=== PATIENT | female | born 1960 | race Caucasian/White ===

== ENCOUNTER 2018-11-06 11:43 | Emergency (ER) | payer OTHER ==
[2018-11-06 14:17] LABS: Absolute Lymphocytes (CBC) 1.5 K/uL (0.7-4.9); Basophils % 0.9 % (0-1.3); Hematocrit 41.4 % (36.0-45.0); Lymphocytes % 15.4 % (15.3-44.8); MPV 7.3 fL (7.6-11.3); RBC Red Blood Cell Count 4.55 M/uL (3.86-4.86)
[2018-11-06] MEDS ORDERED: NA CHLORIDE 0.9% 500 ML ONE (14:29)
[2018-11-06] MEDS ORDERED: ONDANSETRON 4 MG/2 ML VIAL ONE (14:29)
[2018-11-06] MEDS ORDERED: MEPERIDINE HCL 25 MG/0.5 ML ONE (14:29)
[2018-11-06 14:44] LABS: ALT/SGPT 15 U/L (12-78); AST/SGOT 15 U/L (15-37); Albumin 3.6 g/dL (3.4-5.0); Alkaline Phosphatase 87 U/L (45-117); BUN Blood Urea Nitrogen 14 mg/dL (7-18); Bicarbonate 27 mmol/L (21-32); Bilirubin Direct 0.1 mg/dL (0-0.2); Bilirubin Total 0.6 mg/dL (0.2-1.0); Glucose Level 119 mg/dL (74-106); Lipase 73 U/L (73-393); Potassium 4.3 mmol/L (3.5-5.1); Protein, Total 7.3 g/dL (6.4-8.2); Sodium Level 138 mmol/L (136-145)
[2018-11-06] MEDS ORDERED: DIPHENHYDRAMINE 50 MG/ML VIAL ONE (15:13)
--- NOTE | 2018-11-06 15:42 | RAD REPORT ---
EXAM DESCRIPTION: CT - Abdomen Pelvis W Contrast - 11/06/2018 3:08 pm CLINICAL HISTORY: Abdominal pain . COMPARISON: 2012 TECHNIQUE: Computed axial tomography of the abdomen pelvis was obtained. 100 cc Isovue-300 was admin istered intravenously. Oral contrast was not requested which limits evaluation of bowel. All CT scans are performed using dose optimization technique as appropriate and may include automated exposure control or mA/KV adjustment according to patient size. FINDINGS: The liver, spleen, pancreas, adrenal and kidneys appear unremarkable. Prominent periuterine veins 7 centimeter area of wall thickening involves the sigmoid colon 26 millimeter right adnexal cystic mass Large amount stool within the colon IMPRESSION: 7 centimeter area of wall thickening involves sigmoid colon which may indicate colitis o r neoplasm. Direct visualization recommended 26 millimeter right adnexal cystic mass probably benign. Follow-up ultrasound in 6 months recommended
[2018-11-06 16:41] LABS: Urine Blood NEGATIVE (NEG); Urine Glucose NEGATIVE (NEG); Urine Specific Gravity 1.025 (1.005-1.030)
[2018-11-06 16:42] LABS: Urine Protein NEGATIVE (NEG); Urine pH 5.5 (5.0-7.0)
[2018-11-06] MEDS ORDERED: FENTANYL CITR 100 MCG/2 ML ONE (16:46)
[2018-11-06] MEDS ORDERED: HYDROMORPHONE HCL 1 MG/ML INJ ONE (19:35)
--- NOTE | 2018-11-06 19:43 | RAD REPORT ---
EXAM DESCRIPTION: US - Transvaginal Study Probe - 11/06/2018 6:29 pm CLINICAL HISTORY: Pelvic pain FINDINGS: The uterus measures 8 x 5 x 8cm. The endometrial stripe is poorly visualized. Evaluation o f the uterus is limited. Neither ovary visualized. Right and left adnexal unremarkable No significant free fluid is seen. IMPRESSION: Limited evaluation of the uterus and endometrium. If clinically indicated further evalua tion with MRI may be helpful
--- NOTE | 2018-11-06 19:44 | RAD REPORT ---
EXAM DESCRIPTION: US - Abdomen Exam Limited - 11/06/2018 6:29 pm CLINICAL HISTORY: Abdominal pain. COMPARISON: None. FINDINGS: The gallbladder wall is not thickened. A gallstone is not seen. The common bile duct measures 7 millimeters IMPRESSION: Mild dilatation of the common bile duct. MRCP may be helpful for further evaluation
--- NOTE | 2018-11-06 19:56 | ER ---
Nurse's Notes [facility] Name: Yumi Kumar Age: 58 yrs Sex: Female : 1960 Arrival Date: 11/06/2018 Time: 11:44 Bed 23 Private MD: Johnathan Kaufman H Diagnosis: Abdominal and pelvic pain;Constipation Presentation: 11/06 11:45 Presenting complaint: Upper abdominal pain and nausea 2 days, lower abdominal pain and hb pain with urination today. Transition of care: patient was not received from another setting of care. Onset of symptoms was November 04, 2018. Risk Assessment: Do you want to hurt yourself or someone else? Patient reports no desire to harm self or others. Initial Sepsis Screen: Does the patient meet any 2 criteria? No. Patient's initial sepsis screen is negative. Initial Sepsis Screen: Does the patient have a suspected source of infection? No. Patient's initial sepsis screen is negative. Care prior to arrival: None. 11:45 Method Of Arrival: Ambulatory hb 11:45 Acuity: JUANITA 3 hb Historical: - Allergies: 11:48 Morphine; hb - PSHx: 11:48 Knee surgery; wrist; ; Tubal ligation; hb - Immunization history:: Adult Immunizations up to date. - Social history:: Smoking status: Patient uses tobacco products, smokes one-half pack cigarettes per day. - Ebola Screening: : No symptoms or risks identified at this time. Screenin:00 Abuse screen: Denies threats or abuse. Denies injuries from another. Nutritional ca1 screening: No deficits noted. Tuberculosis screening: No symptoms or risk factors identified. Fall Risk IV access (20 points). Assessment: 14:00 General: Appears in no apparent distress. uncomfortable, Behavior is calm, cooperative, ca1 appropriate for age. Pain: Complains of pain in abdomen Pain does not radiate. Pain currently is 9 out of 10 on a pain scale. Quality of pain is described as sharp, Pain began 2-3 days ago. Is intermittent. Neuro: Level of Consciousness is awake, alert, obeys commands, Oriented to person, place, time, situation, Appropriate for age. Cardiovascular: Heart tones S1 S2 present Capillary refill < 3 seconds Patient's skin is warm and dry. Rhythm is sinus rhythm. Respiratory: Airway is patent Respiratory effort is even, unlabored, Respiratory pattern is regular, symmetrical, Breath sounds are clear bilaterally. GI: Abdomen is flat, non-distended, Bowel sounds present X 4 quads. Abd is soft and non tender X 4 quads. Reports nausea, Patient currently denies constipation, diarrhea, vomiting. : No deficits noted. No signs and/or symptoms were reported regarding the genitourinary system. EENT: No deficits noted. No signs and/or symptoms were reported regarding the EENT system. Derm: Skin is intact, is healthy with good turgor, Skin is pink, warm \T\ dry. Musculoskeletal: Circulation, motion, and sensation intact. Capillary refill < 3 seconds, Range of motion: intact in all extremities. 14:59 Reassessment: Patient appears in no apparent distress at this time. Patient and/or ca1 family updated on plan of care and expected duration. Pain level reassessed. Patient is alert, oriented x 3, equal unlabored respirations, skin warm/dry/pink. 16:18 Reassessment: Patient appears in no apparent distress at this time. Patient and/or ca1 family updated on plan of care and expected duration. Pain level reassessed. Patient is alert, oriented x 3, equal unlabored respirations, skin warm/dry/pink. 17:32 Reassessment: Patient appears in no apparent distress at this time. Patient is alert, ca1 oriented x 3, equal unlabored respirations, skin warm/dry/pink. 18:54 Reassessment: Patient appears in no apparent distress at this time. Patient and/or ca1 family updated on plan of care and expected duration. Pain level reassessed. Patient is alert, oriented x 3, equal unlabored respirations, skin warm/dry/pink. 19:17 Reassessment: awaiting for ultrasound result. General: Appears in no apparent distress. rr5 comfortable, Behavior is calm, cooperative, appropriate for age. Pain: Complains of pain in abdomen Pain does not radiate. Pain currently is 8 out of 10 on a pain scale. Quality of pain is described as aching, Pain began gradually, Is intermittent. Neuro: Level of Consciousness is awake, alert, obeys commands, Oriented to person, place, time, situation, Appropriate for age. Cardiovascular: Capillary refill < 3 seconds Patient's skin is warm and dry. Respiratory: Airway is patent Respiratory effort is even, unlabored, Respiratory pattern is regular, symmetrical. GI: Abdomen is non-distended, Reports lower abdominal pain, nausea. : No signs and/or symptoms were reported regarding the genitourinary system. EENT: No signs and/or symptoms were reported regarding the EENT system. Derm: Skin is intact, Skin is pink, warm \T\ dry. Musculoskeletal: Circulation, motion, and sensation intact. Capillary refill < 3 seconds. Vital Signs: 11:48 BP 143 / 82; Pulse 94; Resp 16; Temp 99.4; Pulse Ox 100% on R/A; Weight 56.7 kg; Height hb 5 ft. 2 in. (157.48 cm); Pain 9/10; 14:00 BP 138 / 85; Pulse 77; Resp 19; Pulse Ox 97% on R/A; ca1 14:59 BP 117 / 67; Pulse 63; Resp 16 S; Pulse Ox 97% on R/A; ca1 16:18 BP 134 / 68; Pulse 70; Resp 16 S; Pulse Ox 97% on R/A; ca1 17:32 BP 114 / 52; Pulse 56; Resp 16 S; Temp 98.1(O); Pulse Ox 95% on R/A; ca1 18:54 BP 124 / 73; Pulse 51; Resp 17 S; Pulse Ox 95% on R/A; ca1 19:16 BP 118 / 56; Pulse 55; Resp 16; Temp 98; Pulse Ox 99% ; Pain 8/10; rr5 11:48 Body Mass Index 22.86 (56.70 kg, 157.48 cm) hb ED Course: 11:44 Patient arrived in ED. as 11:45 Johnathan Kaufman DO is Private Physician. as 11:48 Triage completed. hb 11:48 Arm band placed on left wrist. hb 13:56 Mariana García, ROSEMARIE is Primary Nurse. ca1 13:56 Lonny Sood MD is Attending Physician. kdr 14:00 Patient has correct armband on for positive identification. Placed in gown. Bed in low ca1 position. Call light in reach. Side rails up X 1. alarm security or surveillance monitor on. Pulse ox on. NIBP on. Warm blanket given. 14:00 No provider procedures requiring assistance completed. Inserted saline lock: 22 gauge ca1 in left forearm, using aseptic technique. Blood collected. Missed attempt(s): 20 gauge in right antecubital area. Bleeding controlled, band aid applied, catheter tip intact. 15:08 CT completed. Patient tolerated procedure well. Patient moved to CT. Patient moved back ct from CT. 15:09 CT Abd/Pelvis - IV Contrast Only In Process Unspecified. EDMS 18:30 US Transvaginal Study (Probe) In Process Unspecified. EDMS 18:30 US Abdomen Limited In Process Unspecified. EDMS 19:54 Johnathan Kaufman DO is Referral Physician. kdr Administered Medications: 14:40 Drug: NS 0.9% 500 ml Route: IV; Rate: bolus; Site: left forearm; ca1 15:15 Follow up: Response: No adverse reaction; IV Status: Completed infusion; IV Intake: ca1 500ml 14:41 Drug: Zofran 4 mg Route: IVP; Site: left forearm; ca1 16:00 Follow up: Response: No adverse reaction; Nausea is decreased ca1 14:45 Drug: Demerol 25 mg Route: IVP; Site: left forearm; ca1 16:20 Follow up: Response: Adverse reaction, Physician notified; Adverse reaction, Physician ca1 notified. Hives/Rash 16:40 Follow up: Response: RASS: Alert and Calm (0) ca1 16:27 Drug: Benadryl 25 mg Route: IVP; Site: left forearm; ca1 16:41 Follow up: Response: No adverse reaction; Marked relief of symptoms ca1 16:52 Drug: fentaNYL (PF) 25 mcg {Note: RASS - 0.} Route: IVP; Site: right forearm; ca1 19:00 Follow up: Response: No adverse reaction; Pain is decreased ca1 19:39 Drug: Dilaudid 1 mg {Note: rass 0.} Route: IVP; Site: left forearm; rr5 Intake: 15:15 IV: 500ml; Total: 500ml. ca1 Outcome: 19:55 Discharge ordered by . kdr 20:26 Patient left the ED. rr5 Signatures: Dispatcher [employer] EDMS Lonny Sood MD MD kdr Martinez, Amelia as Baxter, Heather, RN RN Samir Hoang Raymond, RN RN rr5 Mariana García RN RN ca1 Corrections: (The following items were deleted from the chart) 14:57 14:00 Cardiovascular: Heart tones S1 S2 present Capillary refill < 3 seconds Patient's ca1 skin is warm and dry. ca1
--- NOTE | 2018-11-06 19:56 | EDPHYS ---
Physician Documentation [facility] [place], [place] Name: Yumi Kumar Age: 58 yrs Sex: Female : 1960 Arrival Date: 11/06/2018 Time: 11:44 Bed 23 Private MD: Johnathan Kaufman H ED Physician Lonny Sood HPI: 11/06 14:26 This 58 yrs old Female presents to ER via Ambulatory with complaints of kdr Abdominal Pain. 14:26 The patient presents with abdominal pain in the lower abdomen. Onset: The kdr symptoms/episode began/occurred gradually, 3 day(s) ago. The symptoms do not radiate. Associated signs and symptoms: Pertinent positives: nausea. The symptoms are described as achy, burning, crampy, dull, steady, vague. Modifying factors: The symptoms are alleviated by nothing, the symptoms are aggravated by movement. Severity of pain: At its worst the pain was moderate in the emergency department the pain is unchanged. The patient has not experienced similar symptoms in the past. The patient has not recently seen a physician. Historical: - Allergies: 11:48 Morphine; hb - PSHx: 11:48 Knee surgery; wrist; ; Tubal ligation; hb - Immunization history:: Adult Immunizations up to date. - Social history:: Smoking status: Patient uses tobacco products, smokes one-half pack cigarettes per day. - Ebola Screening: : No symptoms or risks identified at this time. ROS: 19:32 Constitutional: Negative for fever, chills, and weight loss, Eyes: Negative for injury, kdr pain, redness, and discharge, ENT: Negative for injury, pain, and discharge, Neck: Negative for injury, pain, and swelling, Cardiovascular: Negative for chest pain, palpitations, and edema, Respiratory: Negative for shortness of breath, cough, wheezing, and pleuritic chest pain, Back: Negative for injury and pain, : Negative for injury, bleeding, discharge, and swelling, MS/Extremity: Negative for injury and deformity, Skin: Negative for injury, rash, and discoloration, Neuro: Negative for headache, weakness, numbness, tingling, and seizure activity. Psych: Negative for depression, anxiety, suicide ideation, homicidal ideation, and hallucinations, Allergy/Immunology: Negative for hives, rash, and allergies, Endocrine: Negative for neck swelling, polydipsia, polyuria, polyphagia, and marked weight changes, Hematologic/Lymphatic: Negative for swollen nodes, abnormal bleeding, and unusual bruising. 19:32 Abdomen/GI: Positive for abdominal pain, nausea, Negative for diarrhea, constipation, black/tarry stool, rectal pain, rectal bleeding, bowel incontinence, Last BM yesterday. Exam: 19:32 Constitutional: This is a well developed, well nourished patient who is awake, alert, kdr and in no acute distress. Head/Face: Normocephalic, atraumatic. Eyes: Pupils equal round and reactive to light, extra-ocular motions intact. Lids and lashes normal. Conjunctiva and sclera are non-icteric and not injected. Cornea within normal limits. Periorbital areas with no swelling, redness, or edema. Neck: Trachea midline, no thyromegaly or masses palpated, and no cervical lymphadenopathy. Supple, full range of motion without nuchal rigidity, or vertebral point tenderness. No Meningismus. Chest/axilla: Normal chest wall appearance and motion. Nontender with no deformity. No lesions are appreciated. Cardiovascular: Regular rate and rhythm with a normal S1 and S2. No gallops, murmurs, or rubs. Normal PMI, no JVD. No pulse deficits. Respiratory: Lungs have equal breath sounds bilaterally, clear to auscultation and percussion. No rales, rhonchi or wheezes noted. No increased work of breathing, no retractions or nasal flaring. Back: No spinal tenderness. No costovertebral tenderness. Full range of motion. Skin: Warm, dry with normal turgor. Normal color with no rashes, no lesions, and no evidence of cellulitis. MS/ Extremity: Pulses equal, no cyanosis. Neurovascular intact. Full, normal range of motion. Neuro: Awake and alert, GCS 15, oriented to person, place, time, and situation. Cranial nerves II-XII grossly intact. Motor strength 5/5 in all extremities. Sensory grossly intact. Cerebellar exam normal. Normal gait. Psych: Awake, alert, with orientation to person, place and time. Behavior, mood, and affect are within normal limits. 19:32 Abdomen/GI: Inspection: abdomen appears normal, Bowel sounds: diminished, in all quadrants, Palpation: soft, rebound tenderness, is appreciated in the right lower quadrant, The patient is tender in RU/L Q with mild rebound to the RLQ. Vital Signs: 11:48 BP 143 / 82; Pulse 94; Resp 16; Temp 99.4; Pulse Ox 100% on R/A; Weight 56.7 kg; Height hb 5 ft. 2 in. (157.48 cm); Pain 9/10; 14:00 BP 138 / 85; Pulse 77; Resp 19; Pulse Ox 97% on R/A; ca1 14:59 BP 117 / 67; Pulse 63; Resp 16 S; Pulse Ox 97% on R/A; ca1 16:18 BP 134 / 68; Pulse 70; Resp 16 S; Pulse Ox 97% on R/A; ca1 17:32 BP 114 / 52; Pulse 56; Resp 16 S; Temp 98.1(O); Pulse Ox 95% on R/A; ca1 18:54 BP 124 / 73; Pulse 51; Resp 17 S; Pulse Ox 95% on R/A; ca1 19:16 BP 118 / 56; Pulse 55; Resp 16; Temp 98; Pulse Ox 99% ; Pain 8/10; rr5 11:48 Body Mass Index 22.86 (56.70 kg, 157.48 cm) hb MDM: 19:34 Data reviewed: vital signs, nurses notes, lab test result(s), radiologic studies. kdr Counseling: I had a detailed discussion with the patient and/or guardian regarding: the historical points, exam findings, and any diagnostic results supporting the discharge/admit diagnosis, lab results, the need for outpatient follow up. 19:55 Patient medically screened. kdr 11/06 13:57 Order name: Basic Metabolic Panel; Complete Time: 14:49 kdr 11/06 13:57 Order name: CBC with Diff; Complete Time: 14:49 kdr 11/06 13:57 Order name: Creatinine for Radiology; Complete Time: 14:49 kdr 11/06 13:57 Order name: Hepatic Function; Complete Time: 14:49 kdr 11/06 13:57 Order name: Lipase; Complete Time: 14:49 kdr 11/06 14:30 Order name: Troponin (emerg Dept Use Only); Complete Time: 15:38 kdr 11/06 14:26 Order name: CT Abd/Pelvis - IV Contrast Only; Complete Time: 15:50 kdr 11/06 16:30 Order name: Urine Dipstick--Ancillary (enter results) bd 11/06 16:54 Order name: Transvaginal Study (Probe); Complete Time: 19:47 kdr 11/06 16:54 Order name: Abdomen Limited; Complete Time: 19:47 kdr 11/06 13:57 Order name: IV Saline Lock; Complete Time: 14:53 kdr 11/06 13:57 Order name: Labs collected and sent; Complete Time: 14:53 kdr 11/06 14:30 Order name: EKG - Nurse/Tech; Complete Time: 14:54 kdr Administered Medications: 14:40 Drug: NS 0.9% 500 ml Route: IV; Rate: bolus; Site: left forearm; ca1 15:15 Follow up: Response: No adverse reaction; IV Status: Completed infusion; IV Intake: ca1 500ml 14:41 Drug: Zofran 4 mg Route: IVP; Site: left forearm; ca1 16:00 Follow up: Response: No adverse reaction; Nausea is decreased ca1 14:45 Drug: Demerol 25 mg Route: IVP; Site: left forearm; ca1 16:20 Follow up: Response: Adverse reaction, Physician notified; Adverse reaction, Physician ca1 notified. Hives/Rash 16:40 Follow up: Response: RASS: Alert and Calm (0) ca1 16:27 Drug: Benadryl 25 mg Route: IVP; Site: left forearm; ca1 16:41 Follow up: Response: No adverse reaction; Marked relief of symptoms ca1 16:52 Drug: fentaNYL (PF) 25 mcg {Note: RASS - 0.} Route: IVP; Site: right forearm; ca1 19:00 Follow up: Response: No adverse reaction; Pain is decreased ca1 19:39 Drug: Dilaudid 1 mg {Note: rass 0.} Route: IVP; Site: left forearm; rr5 Disposition: 11/06/18 19:55 Discharged to Home. Impression: Abdominal and pelvic pain, Constipation. - Condition is Stable. - Discharge Instructions: Constipation, Adult, [id number], Abdominal Pain, Adult, [id number]. - Prescriptions for Bentyl 20 mg Oral Tablet - take 1 tablet by ORAL route every 6 hours As needed; 20 tablet. Pepcid 20 mg Oral Tablet - take 1 tablet by ORAL route every 12 hours for 5 days; 10 tablet. Zofran 4 mg Oral Tablet - take 1 tablet by ORAL route every 12 hours As needed; 6 tablet. Miralax 17 gram/dose Oral - take 1 packet by ORAL route once daily dilute powder in 8 ounces of water or juice; 1 box. - Medication Reconciliation Form, Thank You Letter, Antibiotic Education, Work release form form. - Follow up: Mandeep, Johnathan, ; When: 2 - 3 days; Reason: If symptoms return, Further diagnostic work-up, Recheck today's complaints, Continuance of care, Re-evaluation by your physician. - Problem is new. - Symptoms have improved. Signatures: Dispatcher [employer] EDMS Lonny Sood MD MD kdr Kay Doyle RN RN Gabe Morin RN RN rr5 Mariana García RN RN ca1 Corrections: (The following items were deleted from the chart) 20:26 19:55 11/06/2018 19:55 Discharged to Home. Impression: Abdominal and pelvic pain; rr5 Constipation. Condition is Stable. Forms are Medication Reconciliation Form, Thank You Letter, Antibiotic Education, Prescription Opioid Use. Follow up: Johnathan Kaufman; When: 2 - 3 days; Reason: If symptoms return, Further diagnostic work-up, Recheck today's complaints, Continuance of care, Re-evaluation by your physician. Problem is new. Symptoms have improved. kdr
[2018-11-06 20:54] VITALS: BP 118/56; TEMP 98; O2SAT 99
== END 2018-11-06 20:26 | disposition home or self-care (01) ==
LOC: ER 11:43
DX: K59.00 Constipation, unspecified (principal); F17.210 Nicotine dependence, cigarettes, uncomplicated; Z88.5 Allergy status to narcotic agent
CPT/HCPCS: 85025; 80048; 36415; 80076; 81003; 84484; 83690; 74177; 76705; 76830; Q9967; J3010; J2175; J1170; J2405

== ENCOUNTER 2023-08-05 08:06 | Emergency (ER) | payer OTHER ==
[2023-08-05 08:28] LABS: Absolute Lymphocytes (CBC) 0.4 K/uL (0.7-4.9); Absolute Monocytes 0.3 K/uL (0.1-1.3); Absolute Neutrophil 8.1 K/uL (1.8-8.0); Basophils % 0.5 % (0-1.3); Hematocrit 42.9 % (36.0-45.0); Hemoglobin 14.4 g/dL (12.0-15.0); MCH 31.1 pg (27.0-35.0); MCHC 33.5 g/dL (32.0-36.0); MCV 92.8 fL (80-100); MPV 6.3 fL (7.6-11.3); Monocytes % 3.2 % (3.3-12.3); Neutrophils % 91.3 % (41.7-73.7); Platelets 361 thou/uL (152-406); RBC Red Blood Cell Count 4.63 M/uL (3.86-4.86); Red Cell Distribution Width 14.4 % (12.1-15.2)
[2023-08-05] MEDS ORDERED: KETOROLAC 30 MG/ML INJ ONE (08:29)
[2023-08-05] MEDS ORDERED: DIPHENHYDRAMINE 50 MG/ML VIAL ONE (08:29)
[2023-08-05] MEDS ORDERED: LIDOCAINE 4% PATCH ONE (08:30)
[2023-08-05] MEDS ORDERED: NA CHLORIDE 0.9% 1,000 ML ONE (08:30)
[2023-08-05] MEDS ORDERED: METOCLOPRAMIDE 10 MG/2mL INJ ONE (08:30)
[2023-08-05] MEDS ORDERED: NA CHLORIDE 0.9% 50 ML ONE (08:31)
[2023-08-05 08:46] LABS: Anion Gap 7.6 mEq/L (5.0-15.0); Potassium 3.6 mEq/L (3.5-5.1); Troponin High Sensitivity 4.9 pg/mL (<58.9)
--- NOTE | 2023-08-05 09:18 | RAD REPORT ---
EXAM DESCRIPTION: Ewat Single View08/05/2023 8:51 am CLINICAL HISTORY: CHEST PAIN COMPARISON: CHEST SINGLE VIEW dated 01/18/2013 TECHNIQUE: Portable AP view of the chest. FINDINGS: The lungs are clear. No pneumothorax or effusion. The cardiomediastinal contours are unre markable. IMPRESSION: No acute cardiopulmonary process.
[2023-08-05 09:29] LABS: Blood Morphology Comment NOTED (NOT SEEN); Hypochromasia 1+; Platelet Estimate ADEQ; White Blood Cell Scan OK (OK)
--- NOTE | 2023-08-05 10:55 | ER ---
Nurse's Notes [facility] Name: Yumi Kumar Age: 63 yrs Sex: Female : 1960 Arrival Date: 08/05/2023 Time: 08:06 Bed 2 Private MD: Diagnosis: Headache;Chest pain, unspecified Presentation: 08/04 08:09 Chief complaint: Patient states: chest pain that began 4 days ago. Worse yesterday and ss worse upon movement and deep breathing. Seen at urgent care on July 28 and was told she has a bruised rib. Denies injury. Coronavirus screen: Client denies travel out of the [place] in the last 14 days. Ebola Screen: Patient denies exposure to infectious person. Patient denies travel to an Ebola-affected area in the 21 days before illness onset. Initial Sepsis Screen: Does the patient meet any 2 criteria? No. Patient's initial sepsis screen is negative. Does the patient have a suspected source of infection? No. Patient's initial sepsis screen is negative. Risk Assessment: Do you want to hurt yourself or someone else? Patient reports no desire to harm self or others. Onset of symptoms was August 01, 2023. 08:09 Method Of Arrival: EMS: [facility] ss 08:09 Acuity: JUANITA 3 ss Historical: - Allergies: 08:23 Morphine; ss - Home Meds: 08:23 Trazodone Oral [Active]; ss - PMHx: 08:23 COPD; ss - PSHx: 08:23 wrist; knee; ss - Immunization history:: Client reports receiving the 2nd dose of the Covid vaccine. - Infectious Disease History:: Denies. - Social history:: Smoking status: Patient reports the use of cigarette tobacco products, 2.5ppd . Screenin:24 [facility] ED Fall Risk Assessment (Adult) History of falling in the last 3 months, ss including since admission No falls in past 3 months (0 pts). Abuse screen: Denies threats or abuse. Denies injuries from another. Nutritional screening: No deficits noted. Tuberculosis screening: Never had TB. Assessment: 08:24 General: Appears uncomfortable, Behavior is calm, cooperative, Reports chills for 12-24 ss hours, Denies fever, feeling ill, fatigue. Pain: Complains of pain in anterior aspect of left upper chest Pain does not radiate. Pain currently is 9 out of 10 on a pain scale. Quality of pain is described as sharp, Pain began x 4 days Is continuous, Aggravated by increased activity, repositioning, deep breathing. Neuro: Level of Consciousness is awake, alert, obeys commands, Oriented to person, place, time, situation. Cardiovascular: Capillary refill < 3 seconds is brisk in bilateral fingers. Respiratory: Airway is patent Respiratory effort is even, unlabored, Respiratory pattern is regular, symmetrical. GI: Patient currently denies diarrhea, nausea, vomiting. : No signs and/or symptoms were reported regarding the genitourinary system. EENT: Oral mucosa is moist. Throat is clear. 09:45 Reassessment: Pt ambulated to restroom with steady gait. ss 10:47 Reassessment: repeat troponin back. Awaiting for disposition. Pt reports she is feeling ss a little better. Pain is now 4/10. Vital Signs: 08:09 BP 116 / 67; Pulse 79; Resp 18; Temp 98.2(O); Pulse Ox 95% on R/A; Weight 67.13 kg; ss Height 5 ft. 2 in. ; Pain 9/10; 10:41 BP 99 / 51; Pulse 63; Resp 16; Pulse Ox 95% ; Pain 4/10; ss 08:09 Body Mass Index 27.07 (67.13 kg, 157.48 cm) ss 08:09 Pain Scale: Adult ss 10:41 Pain Scale: Adult ss ED Course: 08:09 Patient arrived in ED. ss 08:10 Nathaniel Emery MD is Attending Physician. ec2 08:20 Initial lab(s) drawn, by wa, sent to lab. Inserted saline lock: 22 gauge in left aa5 forearm, using aseptic technique. Blood collected. 08:23 Triage completed. ss 08:23 Arm band placed on right wrist. ss 08:24 Patient has correct armband on for positive identification. Bed in low position. Call light in reach. Side rails up X 1. warehouse sorter on. Pulse ox on. NIBP on. 08:24 Thermoregulation: warm blanket given to patient. ss 08:27 Jeannie Siegel, ROSEMARIE is Primary Nurse. ss 08:53 XRAY Chest (1 view) In Process Unspecified. EDMS 11:33 No provider procedures requiring assistance completed. IV discontinued, intact, ss bleeding controlled, No redness/swelling at site. Pressure dressing applied. Administered Medications: 08:45 Drug: diphenhydrAMINE IVP 12.5 mg IVP once Route: IVP; Site: left forearm; ss 11:34 Follow up: Response: No adverse reaction ss 08:47 Drug: NS 0.9% IV 1000 ml IV at 1 bolus Per protocol; 1000 mL bolus Route: IV; Rate: 1 ss bolus; Site: left forearm; 09:45 Follow up: IV Status: Completed infusion; IV Intake: 1000ml ss 08:50 Drug: Ketorolac IVP 15 mg IVP once Route: IVP; Site: left forearm; ss 11:34 Follow up: Response: No adverse reaction; Pain is decreased ss 08:54 Drug: Lidoderm Topical Patch 5 % (700 mg/patch) 1 patches Topical once; leave on for 12 ss hours; cover most painful area; may cut into smaller pieces {Note: L side.} Route: Topical; Site: anterior chest wall; 08:54 Drug: metoCLOPramide IVP 10 mg IVP once; over 1 to 2 minutes Route: IVP; Site: right ss forearm; 11:34 Follow up: Response: No adverse reaction ss Medication: 08:24 VIS not applicable for this client. ss Intake: 09:45 IV: 1000ml; Total: 1000ml. ss Outcome: 10:54 Discharge ordered by . ec2 11:33 Discharged to home ambulatory, with family, 11:33 Condition: good 11:33 Discharge instructions given to patient, Instructed on discharge instructions, follow up and referral plans. medication usage, Demonstrated understanding of instructions, follow-up care, medications, Prescriptions given X 1, 11:34 Patient left the ED. ss Signatures: Dispatcher [employer] Fern Larsen RN RN aa5 Jeannie Siegel RN RN ss Corral, Edwin, MD MD ec2
--- NOTE | 2023-08-05 10:55 | EDPHYS ---
Physician Documentation [facility] Name: Yumi Kumar Age: 63 yrs Sex: Female : 1960 Arrival Date: 08/05/2023 Time: 08:06 Bed 2 Private MD: ED Physician Nathaniel Emery HPI: 08/04 08:17 This 63 yrs old Female presents to ER via Unassigned with complaints of Chest ec2 Pain. 08:17 Patient arrives today for evaluation of left-sided chest pain. Reports pain going on ec2 for approximately 4 to 5 days. Patient reports no chest trauma, reports the pain is worse with movement, pressing on the area as well. Patient also complaining of a headache. Patient reports that she has no significant medical problems, states that she is a smoker, smokes approximately 2.5 packs/day. Patient planing of a headache, generalized, not sudden onset.. Historical: - Allergies: 08:23 Morphine; ss - Home Meds: 08:23 Trazodone Oral [Active]; ss - PMHx: 08:23 COPD; ss - PSHx: 08:23 wrist; knee; ss - Immunization history:: Client reports receiving the 2nd dose of the Covid vaccine. - Infectious Disease History:: Denies. - Social history:: Smoking status: Patient reports the use of cigarette tobacco products, 2.5ppd . ROS: 08:17 Constitutional: as per hpi ec2 Exam: 08:17 Constitutional: GEN: NAD Head: atraumatic Eyes: EOMI Ears: External ears are ec2 normal. CV: regular rate LUNGS: no respiratory distress ABD: non-distended SKIN: no evidence of rashes MSK: no evidence of trauma, reproducible chest wall TTP, no deformities or crepitus appreciated. NEURO: moves all extremities equally Vital Signs: 08:09 BP 116 / 67; Pulse 79; Resp 18; Temp 98.2(O); Pulse Ox 95% on R/A; Weight 67.13 kg; ss Height 5 ft. 2 in. ; Pain 9/10; 10:41 BP 99 / 51; Pulse 63; Resp 16; Pulse Ox 95% ; Pain 4/10; ss 08:09 Body Mass Index 27.07 (67.13 kg, 157.48 cm) ss 08:09 Pain Scale: Adult ss 10:41 Pain Scale: Adult ss MDM: 08:10 Patient medically screened. ec2 08:17 Data reviewed: vital signs. ED course: Patient arrives today for evaluation of chest ec2 pain. Examination remarkable for reproducible chest wall TTP. Examination otherwise shows reassuring vital signs. Will obtain lab work, EKG, chest x-ray, treated patient's headache as well as chest pain. Evaluating for ACS, doubt PE or dissection. Additionally doubt intracranial process such as mass or brain bleed. Additionally considering costochondritis. 08:19 ED course: EKG independently reviewed and interpreted by me, shows normal sinus rhythm, ec2 rate of 79, no acute ST segment elevations, normal nonconcerning, right bundle branch block noted.. 08:49 ED course: Metabolic profile is reassuring, slight hyponatremia noted. CBC ec2 nonactionable, troponin within normal ranges. Chest x-ray independently reviewed and interpreted by me, shows flattened diaphragm, hyperinflated lungs, no acute intrathoracic process noted. . 10:23 ED course: Repeat EKG independently reviewed and interpreted by me, shows normal sinus ec2 rhythm, rate of 70, no acute ST segment elevations, intervals are nonconcerning, PVC noted, EKG appears grossly unchanged from initial.. 10:54 ED course: Repeat troponin is unchanged. Will discharge to home. Suspect ec2 musculoskeletal chest wall pain. Return precautions given. Additionally instructed the patient on smoking cessation.. 08/04 08:16 Order name: Basic Metabolic Panel; Complete Time: 08:49 ec2 08/04 08:16 Order name: CBC with Diff; Complete Time: 10:25 ec2 08/04 08:16 Order name: Troponin HS; Complete Time: 08:49 ec2 08/04 08:33 Order name: CBC Smear Scan; Complete Time: 10:25 EDMS 08/04 09:34 Order name: Troponin High Sensitivity: at 1000; Complete Time: 10:54 aa5 08/04 08:16 Order name: XRAY Chest (1 view); Complete Time: 09:18 ec2 08/04 08:16 Order name: Cardiac monitoring; Complete Time: 08:27 ec2 08/04 08:16 Order name: EKG - Nurse/Tech; Complete Time: 08:27 ec2 08/04 08:16 Order name: IV Saline Lock; Complete Time: 08:27 ec2 08/04 08:16 Order name: Labs collected and sent; Complete Time: 08:27 ec2 08/04 08:16 Order name: O2 Per Protocol; Complete Time: 08:27 ec2 08/04 08:16 Order name: O2 Sat Monitoring; Complete Time: 08:27 ec2 08/04 09:11 Order name: Misc. Order: repeat ekg/trop at 1000; Complete Time: 10:22 ec2 Administered Medications: 08:45 Drug: diphenhydrAMINE IVP 12.5 mg IVP once Route: IVP; Site: left forearm; ss 11:34 Follow up: Response: No adverse reaction ss 08:47 Drug: NS 0.9% IV 1000 ml IV at 1 bolus Per protocol; 1000 mL bolus Route: IV; Rate: 1 ss bolus; Site: left forearm; 09:45 Follow up: IV Status: Completed infusion; IV Intake: 1000ml ss 08:50 Drug: Ketorolac IVP 15 mg IVP once Route: IVP; Site: left forearm; ss 11:34 Follow up: Response: No adverse reaction; Pain is decreased ss 08:54 Drug: Lidoderm Topical Patch 5 % (700 mg/patch) 1 patches Topical once; leave on for 12 ss hours; cover most painful area; may cut into smaller pieces {Note: L side.} Route: Topical; Site: anterior chest wall; 08:54 Drug: metoCLOPramide IVP 10 mg IVP once; over 1 to 2 minutes Route: IVP; Site: right ss forearm; 11:34 Follow up: Response: No adverse reaction ss Disposition Summary: 08/05/23 10:54 Discharge Ordered Notes: Location: Home ec2 Condition: Stable ec2 Diagnosis - Headache ec2 - Chest pain, unspecified ec2 Followup: ec2 - With: Private Physician - When: - Reason: Re-evaluation by your physician Discharge Instructions: - Discharge Summary Sheet ec2 - Nonspecific Chest Pain, Adult ec2 - Steps to Quit Smoking, [id number] ec2 Forms: - Medication Reconciliation Form ec2 - Antibiotic Education ec2 - Prescription Opioid Use ec2 - Patient Portal Instructions ec2 - Leadership Thank You Letter ec2 Prescriptions: - methocarbamol 500 mg Oral tablet - take 2 tablet ORAL route 4 times per day; 15 tablet; Refills: 0, Product ec2 Selection Permitted Signatures: Dispatcher [employer] Jeannie Hollins, ROSEMARIE RN ss Nathaniel Emery, MD LUCAS ec2
[2023-08-05 12:03] VITALS: BP 99/51; TEMP 98.2; O2SAT 95
--- NOTE | 2023-08-06 13:20 | EKG ---
Test Date: 2023-08-05 Test Time: 10:20:08 Cabin Equipment Supervisor: RODRIGO MEASUREMENT RESULTS: Intervals: Rate: 70 TN: 162 QRSD: 78 QT: 442 QTc: 477 [place]: P: 70 TN: 162 QRS: -52 T: 20 INTERPRETIVE STATEMENTS: Sinus rhythm with occasional premature ventricular complexes Possible Left atrial enlargement Left axis deviation Inferior infarct, age undetermined Cannot rule out Anterior infarct, age undetermined Abnormal ECG Compared to ECG 08/05/2023 08:15:38 Ventricular premature complex(es) now present Left-axis deviation now present Left anterior fascicular block no longer present Myocardial infarct finding still present Electronically Signed On 08-06-23 13:17:22 CDT by Amor Marks
--- NOTE | 2023-08-06 13:20 | EKG ---
Test Date: 2023-08-05 Test Time: 08:15:38 Litigation Paralegal: FUNMILAYO MEASUREMENT RESULTS: Intervals: Rate: 79 KS: 134 QRSD: 90 QT: 386 QTc: 442 [place]: P: 68 KS: 134 QRS: -65 T: 52 INTERPRETIVE STATEMENTS: Normal sinus rhythm Possible Left atrial enlargement RSR' or QR pattern in V1 suggests right ventricular conduction delay Left anterior fascicular block Inferior infarct, age undetermined Cannot rule out Anterior infarct, age undetermined Abnormal ECG Compared to ECG 01/18/2013 17:28:16 RSR' in V1 or V2 now present Left anterior fascicular block now present Myocardial infarct finding now present Left-axis deviation no longer present Electronically Signed On 08-06-23 13:17:25 CDT by Amor Marks
== END 2023-08-05 11:34 | disposition home or self-care (01) ==
LOC: ER 08:06
DX: R07.89 Other chest pain (principal); R51.9 Headache, unspecified; J44.9 Chronic obstructive pulmonary disease, unspecified; F17.210 Nicotine dependence, cigarettes, uncomplicated
CPT/HCPCS: 93005 ×2; 85025; 80048; 36415; 84484 ×2; 71045; 99285; J2001; J2765; J1200; J7030

== ENCOUNTER 2023-08-13 10:15 | Inpatient (IN) | payer OTHER ==
[2023-08-13] MEDS ORDERED: FENTANYL CITR 100 MCG/2 ML ONE (10:39)
[2023-08-13] MEDS ORDERED: FAMOTIDINE 20 MG/2 ML VIAL IV ONE (10:40)
[2023-08-13] MEDS ORDERED: NA CHLORIDE 0.9% 500 ML ONE (10:40)
[2023-08-13] MEDS ORDERED: NA CHLORIDE 0.9% 1,000 ML ONE (10:40)
[2023-08-13] MEDS ORDERED: ONDANSETRON 4 MG/2 ML VIAL ONE (10:40)
[2023-08-13 11:10] LABS: Absolute Basophils 0.1 K/uL (0-0.5); Absolute Lymphocytes (CBC) 1.5 K/uL (0.7-4.9); Absolute Monocytes 0.9 K/uL (0.1-1.3); Absolute Neutrophil 11.9 K/uL (1.8-8.0); Basophils % 0.5 % (0-1.3); Eosinophils % 0.2 % (0-4.4); Hematocrit 38.7 % (36.0-45.0); Hemoglobin 13.2 g/dL (12.0-15.0); Lymphocytes % 10.2 % (15.3-44.8); MCH 31.4 pg (27.0-35.0); MCHC 34.1 g/dL (32.0-36.0); MCV 92.2 fL (80-100); MPV 6.6 fL (7.6-11.3); Monocytes % 6.3 % (3.3-12.3); Neutrophils % 82.8 % (41.7-73.7); Platelets 563 thou/uL (152-406); RBC Red Blood Cell Count 4.19 M/uL (3.86-4.86); Red Cell Distribution Width 14.5 % (12.1-15.2)
[2023-08-13 11:11] LABS: PT Prothrombin Time 11.8 SECONDS (9.5-12.5); Protime INR 1.07
--- NOTE | 2023-08-13 11:21 | RAD REPORT ---
EXAM DESCRIPTION: CTAbdomen Pelvis W Contrast - 08/13/2023 11:08 am CLINICAL HISTORY: Abdominal pain. Abd pain;Abdominal distention COMPARISON: Abdomen Pelvis W Contrast dated 11/06/2018; CT ABD PELVIS W CONTRAST dated 01/18/2013 TECHNIQUE: Venous phase CT imaging of the abdomen and pelvis was performed with 100 ml non-ionic IV contrast. All CT scans are performed using dose optimization technique as appropriate and may include automated exposure control or mA/KV adjustment according to patient size. FINDINGS: 9 mm nodule is present left lung base medially, new since 2018. The liver demonstrates no focal mass or biliary dilatation. 26 mm nonspecific splenic lesion likely b enign but nonspecific. . The pancreas, adrenal glands and kidneys are within normal limits. There is evidence of an irregular mass with fluid components present involve involving the sigmoid co quang the left lower quadrant with significant luminal narrowing. This mass measures approximately 4.8 x 4.7 cm. There are numerous diverticula present in this region. The appendix is normal. No evidenc e of significant lymphadenopathy. Mild to moderate lumbar degenerative changes. IMPRESSION: There is a masslike lesion present in the sigmoid colon measuring 4.8 x 4.7 cm in the le ft lower quadrant. There are numerous diverticula as well in this region of the sigmoid. The findings could be related to malignancy or sequela of long-term diverticular disease. Colonoscopy is recommen ded for direct assessment of this region. New 9 mm nodule is present in the medial left lung base.
--- NOTE | 2023-08-13 11:28 | RAD REPORT ---
EXAM DESCRIPTION: RAD - Chest Single View - 08/13/2023 11:18 am CLINICAL HISTORY: ABDOMINAL DISTENTION Chest pain. COMPARISON: Chest Single View dated 08/05/2023; CHEST SINGLE VIEW dated 01/18/2013 FINDINGS: Portable technique limits examination quality. The lungs are emphysematous but clear. The heart is normal in size. No displaced fractures. IMPRESSION: No acute intrathoracic process suspected.
[2023-08-13 11:29] LABS: Albumin 3.1 g/dL (3.4-5.0); Albumin/Globulin Ratio 0.8 (1.1-1.8); Anion Gap 7.9 mEq/L (5.0-15.0); Bilirubin Direct 0.2 mg/dL (0-0.2); Bilirubin Indirect, Calculated 0.4 mg/dL (0.2-0.8); Bilirubin Total 0.6 mg/dL (0.2-1.0); Magnesium 2.2 mg/dL (1.6-2.4); Potassium 3.9 mEq/L (3.5-5.1); Protein, Total 7.1 g/dL (6.4-8.2)
[2023-08-13 11:33] LABS: Specific Gravity > 1.030 (1.005-1.030); Sqamous Epithelial <5 /HPF (None Seen); Urine Bacteria None Seen /HPF (<20); Urine Bilirubin NEGATIVE (Negative); Urine Blood Negative (Negative); Urine Clarity Clear (Clear); Urine Color Light-Yellow (Yellow); Urine Culture Reflex Order NOT NEEDED; Urine Glucose NEGATIVE (Negative); Urine Ketones NEGATIVE (Negative); Urine Microscopic Reflex YN ORDER UMIC; Urine Nitrite NEGATIVE (Negative); Urine Protein NEGATIVE (Negative); Urine RBC <5 /HPF (None Seen); Urine Urobilinogen Normal (Normal); Urine WBC <5 /HPF (<5); Urine pH 6.5 (5.0-7.0)
[2023-08-13] MEDS ORDERED: PIPERACIL/TAZO 3.375 GM VIAL IV ONE (11:42)
[2023-08-13] MEDS ORDERED: NA CHLORIDE 0.9% 100 ML ONE (11:42)
--- NOTE | 2023-08-13 11:48 | EDPHYS ---
Physician Documentation [facility] Name: Yumi Kumar Age: 63 yrs Sex: Female : 1960 Arrival Date: 08/13/2023 Time: 10:15 Bed 14 Private MD: ED Physician Kenton Gonzalez HPI: 08/12 11:38 This 63 yrs old Female presents to ER via Ambulatory with complaints of simon Abdominal Pain. 11:38 The patient presents with abdominal pain in the left lower quadrant. Onset: The simon symptoms/episode began/occurred 4 day(s) ago. The symptoms do not radiate. Associated signs and symptoms: none. The symptoms are described as constant, crampy, shooting. Modifying factors: The symptoms are alleviated by remaining still, the symptoms are aggravated by movement, pressure. Severity of pain: At its worst the pain was moderate in the emergency department the pain is unchanged. The patient has not experienced similar symptoms in the past. Historical: - Allergies: 10:24 Morphine; aa5 - PMHx: 10:24 COPD; aa5 - PSHx: 10:24 knee; wrist; aa5 - Immunization history:: Adult Immunizations up to date. - Infectious Disease History:: Denies. - Social history:: Smoking status: Patient reports the use of cigarette tobacco products. - Family history:: not pertinent. ROS: 11:38 Constitutional: Negative for fever, chills, and weight loss, Eyes: Negative for injury, simon pain, redness, and discharge, ENT: Negative for injury, pain, and discharge, Neck: Negative for injury, pain, and swelling, Cardiovascular: Negative for chest pain, palpitations, and edema, Respiratory: Negative for shortness of breath, cough, wheezing, and pleuritic chest pain, Back: Negative for injury and pain, : Negative for injury, bleeding, discharge, and swelling, MS/Extremity: Negative for injury and deformity, Skin: Negative for injury, rash, and discoloration, Neuro: Negative for headache, weakness, numbness, tingling, and seizure, Psych: Negative for depression, anxiety, suicide ideation, homicidal ideation, and hallucinations, Allergy/Immunology: Negative for hives, rash, and allergies, Endocrine: Negative for neck swelling, polydipsia, polyuria, polyphagia, and marked weight changes, Hematologic/Lymphatic: Negative for swollen nodes, abnormal bleeding, and unusual bruising, 11:38 Abdomen/GI: Positive for abdominal pain, abdominal cramps, of the left lower quadrant, Exam: 11:38 Constitutional: This is a well developed, well nourished patient who is awake, alert, simon and in no acute distress. Head/Face: Normocephalic, atraumatic. Eyes: Pupils equal round and reactive to light, extra-ocular motions intact. Lids and lashes normal. Conjunctiva and sclera are non-icteric and not injected. Cornea within normal limits. Periorbital areas with no swelling, redness, or edema. ENT: Nares patent. No nasal discharge, no septal abnormalities noted. Tympanic membranes are normal and external auditory canals are clear. Oropharynx with no redness, swelling, or masses, exudates, or evidence of obstruction, uvula midline. Mucous membranes moist. Neck: Trachea midline, no thyromegaly or masses palpated, and no cervical lymphadenopathy. Supple, full range of motion without nuchal rigidity, or vertebral point tenderness. No Meningismus. Chest/axilla: Normal chest wall appearance and motion. Nontender with no deformity. No lesions are appreciated. Cardiovascular: Regular rate and rhythm with a normal S1 and S2. No gallops, murmurs, or rubs. Normal PMI, no JVD. No pulse deficits. Respiratory: Lungs have equal breath sounds bilaterally, clear to auscultation and percussion. No rales, rhonchi or wheezes noted. No increased work of breathing, no retractions or nasal flaring. Back: No spinal tenderness. No costovertebral tenderness. Full range of motion. Skin: Warm, dry with normal turgor. Normal color with no rashes, no lesions, and no evidence of cellulitis. MS/ Extremity: Pulses equal, no cyanosis. Neurovascular intact. Full, normal range of motion. Neuro: Awake and alert, GCS 15, oriented to person, place, time, and situation. Cranial nerves II-XII grossly intact. Motor strength 5/5 in all extremities. Sensory grossly intact. Cerebellar exam normal. Normal gait. Psych: Awake, alert, with orientation to person, place and time. Behavior, mood, and affect are within normal limits. 11:38 ECG was reviewed by the Attending Physician. 11:38 Abdomen/GI: Inspection: abdomen appears normal, Bowel sounds: normal, Palpation: moderate abdominal tenderness, in the left lower quadrant, Liver: no appreciated palpable abnormalities, Hernia: not appreciated, Vital Signs: 10:24 BP 136 / 82; Pulse 86; Resp 20 S; Temp 97.5(TE); Pulse Ox 97% on R/A; Weight 67.13 kg; aa5 Height 5 ft. 2 in. (R); 13:02 BP 143 / 74; Pulse 64; Resp 18; Pulse Ox 100% on R/A; mb9 10:24 Body Mass Index 27.07 (67.13 kg, 157.48 cm) aa5 MDM: 10:27 Patient medically screened. simon 11:40 Differential diagnosis: bowel obstruction, diverticulitis, non-specific abd pain, simon pancreatitis, Peptic Ulcer Disease, Pyelonephritis, Ureterolithiasis, urinary tract infection. Data reviewed: vital signs, nurses notes, lab test result(s), EKG, radiologic studies, CT scan, plain films. Consideration of Admission/Observation Patient was admitted/placed on observation. I considered the following discharge prescriptions or medication management in the emergency department Medications were administered in the Emergency Department. See MAR. Independent interpretation of the following test(s) in the Emergency Department EKG: See my EKG interpretation above CT Scan: My interpretation is ct abd/pel. Test considered but Not performed: Ultrasound no abd usg. Historians other than the Patient: pt well informed. Care significantly affected by the following chronic conditions: Chronic Obstructive Pulmonary Disease. 08/12 10:30 Order name: Basic Metabolic Panel; Complete Time: :34 [facility] 08/12 10:30 Order name: CBC with Diff; Complete Time: 11: [facility] 08/12 10:30 Order name: LFT's; Complete Time: :34 [facility] 08/12 10:30 Order name: Magnesium; Complete Time: : [facility] 08/12 10:30 Order name: NT PRO-BNP; Complete Time: : [facility] 08/12 10:30 Order name: PT-INR; Complete Time: 11:18 08/12 10:30 Order name: Troponin HS; Complete Time: :34 simon 08/12 10:30 Order name: Lipase; Complete Time: : [facility] 08/12 10:30 Order name: Urinalysis w/ reflexes; Complete Time: 11:34 [facility] 08/12 12:20 Order name: Thyroid Stimulating Hormone EDMS 08/12 12:20 Order name: Urinalysis w/ reflexes EDMS 08/12 12:20 Order name: CBC with Automated Diff EDMS 08/12 12:20 Order name: CBC with Automated Diff EDMS 08/12 12:20 Order name: Comprehensive Metabolic Panel EDMS 08/12 12:20 Order name: Comprehensive Metabolic Panel EDMS 08/12 12:20 Order name: Lipid Profile EDMS 08/12 12:20 Order name: Lipid Profile EDMS 08/12 12:20 Order name: Magnesium EDMS 08/12 12:20 Order name: Magnesium EDMS 08/12 12:20 Order name: Phosphorus EDMS 08/12 12:20 Order name: Phosphorus EDMS 08/12 12:20 Order name: Protime (+INR) EDMS 08/12 12:20 Order name: Protime (+INR) EDMS 08/12 12:20 Order name: PTT, Activated Partial Thromb EDMS 08/12 12:20 Order name: PTT, Activated Partial Thromb EDDE 08/12 10:30 Order name: XRAY Chest (1 view); Complete Time: 11:34 [facility] 08/12 10:30 Order name: CT Abd/Pelvis - IV Contrast Only; Complete Time: 11:25 [facility] 08/12 10:30 Order name: EKG; Complete Time: 10:31 [facility] 08/12 12:20 Order name: CONS Physician Consult DE 08/12 10:30 Order name: Cardiac monitoring; Complete Time: 10:37 [facility] 08/12 10:30 Order name: EKG - Nurse/Tech; Complete Time: 11:03 [facility] 08/12 10:30 Order name: IV Saline Lock; Complete Time: 10:37 [facility] 08/12 10:30 Order name: Labs collected and sent; Complete Time: 10:37 [facility] 08/12 10:30 Order name: O2 Per Protocol; Complete Time: 10:37 [facility] 08/12 10:30 Order name: O2 Sat Monitoring; Complete Time: 10:37 [facility] EC:38 Rate is 76 beats/min. Rhythm is regular. QRS Catherine is Normal. GA interval is normal. QRS simon interval is normal. QT interval is normal. No Q waves. T waves are Normal. No ST changes noted. Clinical impression: NSR w/ Non-specific ST/T Changes and No evidence of ischemia. Interpreted by me. Reviewed by me. Administered Medications: 10:45 Drug: NS 0.9% IV 500 ml IV at bolus once Route: IV; Rate: bolus; Site: right forearm; mb9 10:45 Drug: NS 0.9% IV 1000 ml IV at 125 ml/hr continuous Route: IV; Rate: 125 ml/hr; Site: mb9 right forearm; 10:48 Drug: Famotidine IVP 20 mg IVP once; dilute with 10 mL 0.9% NaCl; give over 2 minutes mb9 Route: IVP; Site: right forearm; 10:50 Drug: Ondansetron IVP 4 mg IVP once; over 2 minutes Route: IVP; Site: right forearm; mb9 10:52 Drug: fentaNYL (PF) IVP 50 mcg IVP once Route: IVP; Site: right forearm; mb9 11:48 Drug: Piperacillin-Tazobactam IVPB 3.375 grams IVPB once over 60 mins; (mix in NS 100 mb9 mL) Route: IVPB; Infused Over: 60 mins; Site: right forearm; 12:48 Drug: HYDROmorphone IVP 1 mg IVP once Route: IVP; Site: right forearm; mb9 Disposition Summary: 08/13/23 11:47 Hospitalization Ordered Notes: Hospitalization Status: Inpatient Admission simon Provider: Jaison Eason cha Location: Telemetry/MedSurg (Inpatient) simon Condition: Fair simon Problem: new simon Symptoms: have improved simon Bed/Room Type: Standard simon Room Assignment: 403(08/13/23 12:43) bd Diagnosis - Abdominal tenderness simon - Elevated white blood cell count simon - Diverticulitis of large intestine without perforation or abscess without bleeding - simon 4.8 x 4.7 cm sigmoid mass Forms: - Medication Reconciliation Form simon - SBAR form simon - Leadership Thank You Letter simon Signatures: Dispatcher [employer] EDKassie Luis Corey, MD MD cha Calderon, Audri RN RN aa5 Gwendolyn Saavedra, RN RN mb9 Corrections: (The following items were deleted from the chart) 10:31 10:31 BASIC METABOLIC PANEL+C.LAB.BRZ ordered. EDMS EDMS 10:31 10:31 CBC+H.LAB.BRZ ordered. EDMS EDMS 10:31 10:31 HEPATIC FUNCTION+C.LAB.BRZ ordered. EDMS EDMS 10:31 10:31 MAGNESIUM+C.LAB.BRZ ordered. EDMS EDMS 10:31 10:31 PROBNP+C.LAB.BRZ ordered. EDMS EDMS 10:31 10:31 PROTIME (+INR)+COAG.LAB.BRZ ordered. EDMS EDMS 10:31 10:31 Troponin High Sensitivity+C.LAB.BRZ ordered. EDMS EDMS 10:31 10:31 LIPASE+C.LAB.BRZ ordered. EDMS EDMS 10:31 10:31 Urinalysis+U.LAB.BRZ ordered. EDMS EDMS 12:43 11:47 simon bd
--- NOTE | 2023-08-13 11:48 | ER ---
Nurse's Notes [facility] Name: Yumi Kumar Age: 63 yrs Sex: Female : 1960 Arrival Date: 08/13/2023 Time: 10:15 Bed 14 Private MD: Diagnosis: Abdominal tenderness;Elevated white blood cell count;Diverticulitis of large intestine without perforation or abscess without bleeding-4.8 x 4.7 cm sigmoid mass Presentation: 08/12 10:24 Chief complaint: Patient states: LLQ pain that began 4 days ago, reports nausea, denies aa5 vomiting. Coronavirus screen: nausea. Ebola Screen: Patient denies travel to an Ebola-affected area in the 21 days before illness onset. Initial Sepsis Screen: Does the patient meet any 2 criteria? No. Patient's initial sepsis screen is negative. Does the patient have a suspected source of infection? No. Patient's initial sepsis screen is negative. Risk Assessment: Do you want to hurt yourself or someone else? Patient reports no desire to harm self or others. Onset of symptoms was July 2023. 10:24 Acuity: JUANITA 3 aa5 10:24 Method Of Arrival: Ambulatory aa5 Historical: - Allergies: 10:24 Morphine; aa5 - PMHx: 10:24 COPD; aa5 - PSHx: 10:24 knee; wrist; aa5 - Immunization history:: Adult Immunizations up to date. - Infectious Disease History:: Denies. - Social history:: Smoking status: Patient reports the use of cigarette tobacco products. - Family history:: not pertinent. Screenin:20 [facility] ED Fall Risk Assessment (Adult) History of falling in the last 3 months, mb9 including since admission No falls in past 3 months (0 pts) Confusion or Disorientation No (0 pts) Intoxicated or Sedated No (0 pts) Impaired Gait No (0 pts) Mobility Assist Device Used No (0 pt) Altered Elimination No (0 pt) Score/Fall Risk Level 0 - 2 = Low Risk Oriented to surroundings, Maintained a safe environment, Educated pt \T\ family on fall prevention, incl call for assistance when getting out of bed. Abuse screen: Denies threats or abuse. Nutritional screening: No deficits noted. Tuberculosis screening: No symptoms or risk factors identified. Assessment: 10:45 General: Appears in no apparent distress. Behavior is calm, cooperative. Pain: mb9 Complains of pain in abdomen Pain radiates to LLQ Pain currently is 10 out of 10 on a pain scale. Quality of pain is described as throbbing, Pain began 2-3 days ago. Neuro: Wiley Agitation-Sedation Scale (RASS): 0 - Alert and Calm Level of Consciousness is awake, alert, obeys commands, Oriented to person, place, time, situation, Appropriate for age. Cardiovascular: Patient's skin is warm and dry. Respiratory: Airway is patent Respiratory effort is even, unlabored, Respiratory pattern is regular, symmetrical, Breath sounds are clear bilaterally. GI: Abdomen is flat, non-distended, Bowel sounds present X 4 quads. Abd is soft Abdomen is tender to palpation in left lower quadrant Reports nausea. : No signs and/or symptoms were reported regarding the genitourinary system. EENT: No signs and/or symptoms were reported regarding the EENT system. Derm: Skin is pink, warm \T\ dry. Musculoskeletal: Range of motion: intact in all extremities. 11:45 Reassessment: No changes from previously documented assessment. Patient and/or family mb9 updated on plan of care and expected duration. Pain level reassessed. Patient is alert, oriented x 3, equal unlabored respirations, skin warm/dry/pink. 12:45 Reassessment: Patient appears in no apparent distress at this time. No changes from mb9 previously documented assessment. Patient and/or family updated on plan of care and expected duration. Pain level reassessed. Patient is alert, oriented x 3, equal unlabored respirations, skin warm/dry/pink. Vital Signs: 10:24 BP 136 / 82; Pulse 86; Resp 20 S; Temp 97.5(TE); Pulse Ox 97% on R/A; Weight 67.13 kg; aa5 Height 5 ft. 2 in. (R); 13:02 BP 143 / 74; Pulse 64; Resp 18; Pulse Ox 100% on R/A; mb9 10:24 Body Mass Index 27.07 (67.13 kg, 157.48 cm) aa5 ED Course: 10:18 Patient arrived in ED. im 10:24 Arm band placed on. aa5 10:25 Triage completed. aa5 10:27 Kenton Gonzalez MD is Attending Physician. [facility] 10:37 Gwendolyn Saavedar, RN is Primary Nurse. mb9 11:02 Initial lab(s) drawn, by me, sent to lab. EKG done, by ED staff, reviewed by Gwendolyn Saavedra RN. Inserted saline lock: 22 gauge in right forearm, using aseptic technique. 11:09 CT Abd/Pelvis - IV Contrast Only In Process Unspecified. EDMS 11:20 XRAY Chest (1 view) In Process Unspecified. EDMS 11:20 Placed in gown. Bed in low position. Call light in reach. Side rails up X 1. Provided mb9 Education on: press call light if needing anything. Client placed on continuous cardiac and pulse oximetry monitoring. NIBP monitoring applied. monitoring manager on. 11:20 No provider procedures requiring assistance completed. mb9 11:46 Jaison Eason MD is Hospitalizing Provider. simon Administered Medications: 10:45 Drug: NS 0.9% IV 500 ml IV at bolus once Route: IV; Rate: bolus; Site: right forearm; mb9 10:45 Drug: NS 0.9% IV 1000 ml IV at 125 ml/hr continuous Route: IV; Rate: 125 ml/hr; Site: mb9 right forearm; 10:48 Drug: Famotidine IVP 20 mg IVP once; dilute with 10 mL 0.9% NaCl; give over 2 minutes mb9 Route: IVP; Site: right forearm; 10:50 Drug: Ondansetron IVP 4 mg IVP once; over 2 minutes Route: IVP; Site: right forearm; mb9 10:52 Drug: fentaNYL (PF) IVP 50 mcg IVP once Route: IVP; Site: right forearm; mb9 11:48 Drug: Piperacillin-Tazobactam IVPB 3.375 grams IVPB once over 60 mins; (mix in NS 100 mb9 mL) Route: IVPB; Infused Over: 60 mins; Site: right forearm; 12:48 Drug: HYDROmorphone IVP 1 mg IVP once Route: IVP; Site: right forearm; mb9 Medication: 11:20 VIS not applicable for this client. mb9 Outcome: 11:47 Decision to Hospitalize by Provider. simon 13:45 Patient left the ED. iw Signatures: Dispatcher [employer] EDKenton Foss MD MD cha Williams, Irene, RN RN iw Fern Reynoso, RN RN aa5 Gwendolyn Saavedra, RN RN mb9 Deb Maya
--- NOTE | 2023-08-13 12:09 | P.HP ---
Certification for Inpatient Patient admitted to: Inpatient With expected LOS: >2 Midnights Patient will require the following post-hospital care: None Practitioner: I am a practitioner with admitting privileges, knowledge of patient current condition, hospital course, and medical plan of care. Services: Services provided to patient in accordance with Admission requirements found in Title 42 Section 412.3 of the Code of Federal Regulations <Suyapa Cuellar - Last Filed: 08/13/23 14:39> Patient History Date of Service: 08/13/23 Reason for admission: Abdominal pain, aggressive IV hydrationIV antibioticOutpatient colonosc History of Present Illness: Ms. Kumar is a 63-year-old female who arrives at the emergency department with left lower abdominal pain, spastic in nature. She states she had 3 bowel movements that were normal and without blood this a.m. In the emergency department her laboratory evaluation reveals a normal white count at 8.9, H/H 14.4/42.9, platelets 361, of note neutrophils 91.3%. Sodium 132, potassium 3.6, chloride 104, CO2 24, glucose 118, creatinine 0.64 with a BUN of 12. Imaging revealed, "there is a masslike lesion present in the sigmoid colon measuring 4.8 x 4.7 cm in the left lower quadrant. There are numerous diverticula as well in this region of the sigmoid. The findings could be related to malignancy or sequela of long-term diverticular disease. Colonoscopy is recommended for direct assessment of this region. New 9 mm nodule is present in the medial left lung base." Ms. Kumar will be admitted for further evaluation and treatment of diverticulitis with a consult to Dr. Vigil. Home medications list reviewed: Yes - Past Medical/Surgical History Diabetic: No -: left ear problems -: Cigarette abuse -: L KNEE REPLACEMENT -: R WRIST SX -: -: BL EYES SX -: L EAR SX Psychosocial/ Personal History: Pt lives alone, . Her of colon cancer - Family History Family History: Reviewed- Non-Contributory - Social History Smoking Status: Current every day smoker Alcohol use: Yes CD- Drugs: No Caffeine use: Yes Place of Residence: Home <Suyapa Cuellar - Last Filed: 08/13/23 14:39> Date of Service: 08/13/23 <Jaison Eason - Last Filed: 08/13/23 17:27> Allergies morphine Adverse Reaction (Mild, Verified 08/13/23 14:01) headackes Home Medications: Ipratropium Neb [Atrovent Neb] 0.2 mg IH Q6H 08/13/23 Meclizine HCl 25 mg PO Q6H PRN 08/13/23 Pantoprazole [Protonix Tab] 40 mg PO DAILY 08/13/23 Pregabalin [Lyrica] 50 mg PO BID PRN 08/13/23 Trazodone HCl 100 mg PO BEDTIME 08/13/23 Review of Systems 10-point ROS is otherwise unremarkable Gastrointestinal: Abdominal Pain, As per HPI <Suyapa Cuellar - Last Filed: 08/13/23 14:39> Physical Examination - Physical Exam General: Alert, In no apparent distress, Oriented x3 HEENT: Atraumatic, Normocephalic Neck: JVD not distended Respiratory: Expiratory wheezes, Other (cough) Cardiovascular: Regular rate/rhythm Capillary refill: <2 Seconds Gastrointestinal: Tenderness (LLQ, paroxysmal pain) Musculoskeletal: No clubbing Integumentary: No rashes Neurological: Normal speech, Normal tone, Normal affect Lymphatics: No axilla or inguinal lymphadenopathy External genitalia: Deferred Rectal: Deferred - Studies Laboratory Data (last 24 hrs) 08/13/23 08/13/23 08/13/23 10:55 10:55 10:55 WBC 14.40 H Hgb 13.2 Hct 38.7 Plt Count 563 H PT 11.8 INR 1.07 Sodium 131 L Potassium 3.9 BUN 12 Creatinine 0.60 Glucose 155 H Magnesium 2.2 Total Bilirubin 0.6 AST 20 ALT 57 H Alkaline Phosphatase 192 H Lipase 23 <Suyapa Cuellar - Last Filed: 08/13/23 14:39> - Studies Laboratory Data (last 24 hrs) 08/13/23 08/13/23 08/13/23 10:55 10:55 10:55 WBC 14.40 H Hgb 13.2 Hct 38.7 Plt Count 563 H PT 11.8 INR 1.07 Sodium 131 L Potassium 3.9 BUN 12 Creatinine 0.60 Glucose 155 H Magnesium 2.2 Total Bilirubin 0.6 AST 20 ALT 57 H Alkaline Phosphatase 192 H Lipase 23 <JenaroJaison Cruz - Last Filed: 08/13/23 17:27> Assessment and Plan - Plan Diverticulitis: Aggressive IV hydration IV antibiotic - flagyl and cipro Outpatient colonoscopy Pain control Monitor for perforation Dr. Vigil following CT abdomen and pelvis show diverticulitis and sigmoid mass - Advance Directives Does patient have a Living Will: No Does patient have a Durable POA for Healthcare: No <Suyapa Cuellar Cornelius - Last Filed: 08/13/23 14:39> Physician Review Additional Text: Pt seen and examined. I agree with the note by the BUMPER OPERATOR. Pt is a 63 yo female with past medical history of COPD who presents with abdominal pain. The abd pain started 4 days ago. It is located in the LLQ, sharp and constant in nature with severity of 8/10. On admission, lab studies show wbc 14.4, K 3.9, Cr 0.6, Na [address] abd shows a mass-like lesion in the sigmoid colon measuring 4.8 x 4.7 cm in the left lower quadrant. Sigmoid diverticula and a 9mm nodule in the medial left lung base. At bedside, pt is in NAD. A/P: Sigmoid mass: CT abd shows a sigmoid mass (4.8 x 4.7 cm) in the left lower quadrant. Will consult Gen surgeon. Diverticulitis: Will continue iv Cipro and flagyl and f/u blood cx. Will need outpt colonoscopy Hx of COPD: stable. Not in exacerbation. Hyponatremia: Na is 131. Will continue DVT ppx: SCD Code: full <Jaison Eason - Last Filed: 08/13/23 17:27>
[2023-08-13] MEDS ORDERED: HYDROMORPHONE HCL 1 MG/ML INJ ONE (12:42)
[2023-08-13] MEDS: PIPER TAZO 3.375 GM in NA CHLORIDE 0.9% 100 ML IV SCH (14:00)
[2023-08-13] MEDS ORDERED: SODIUM CHLORIDE 0.9% 10ML INJ IV PRN (14:09)
[2023-08-13] MEDS: DICYCLOMINE HCL 10 MG CAP PO SCH (14:58)
[2023-08-13] MEDS: NA CHLORIDE 0.9% 1,000 ML IV SCH (14:59)
[2023-08-13] MEDS: ENOXAPARIN 40 MG/0.4 ML SQ SCH (15:11)
[2023-08-13] MEDS: PNEUMOCOCCAL VACCINE 0.5 ML IMVAC ONE (16:00)
[2023-08-13] MEDS: METRONIDAZOLE 500mg IVPB 500 MG/100 ML BAG IV SCH (16:33)
[2023-08-13] MEDS: Oxycodone HCl/Acetaminophen 5/325 MG TAB PO PRN (16:38)
[2023-08-13] MEDS: NICOTINE 21 MG/PAT TD ONE (17:01)
[2023-08-13] MEDS: NICOTINE 21 MG/PAT TD SCH (17:03)
[2023-08-13] MEDS: CIPROFLOXACIN 400mg IV 400 MG/200 ML BAG IV SCH (20:17)
[2023-08-13] MEDS: TRAZODONE 50 MG TABLET PO SCH (20:17)
[2023-08-13] MEDS ORDERED: HOME MED 1 EA UNK (Trazodone Hcl [Trazodone Hcl] 100 MG Tablet) PO SCH (21:00)
[2023-08-13] MEDS ORDERED: PANTOPRAZOLE 40 MG INJ IVP SCH (21:00)
[2023-08-14 06:42] LABS: Absolute Eosinophils 0.1 K/uL (0-0.5); Absolute Lymphocytes (CBC) 2.2 K/uL (0.7-4.9); Absolute Monocytes 1.2 K/uL (0.1-1.3); Absolute Neutrophil 8.1 K/uL (1.8-8.0); Basophils % 0.3 % (0-1.3); Eosinophils % 0.6 % (0-4.4); Hematocrit 36.8 % (36.0-45.0); Hemoglobin 12.4 g/dL (12.0-15.0); Lymphocytes % 18.9 % (15.3-44.8); MCH 31.3 pg (27.0-35.0); MCHC 33.6 g/dL (32.0-36.0); MCV 93.1 fL (80-100); MPV 6.9 fL (7.6-11.3); Monocytes % 10.5 % (3.3-12.3); Neutrophils % 69.7 % (41.7-73.7); Platelets 522 thou/uL (152-406); RBC Red Blood Cell Count 3.95 M/uL (3.86-4.86); Red Cell Distribution Width 14.3 % (12.1-15.2)
[2023-08-14 07:08] LABS: Albumin 2.6 g/dL (3.4-5.0); Albumin/Globulin Ratio 0.7 (1.1-1.8); Bilirubin Total 0.6 mg/dL (0.2-1.0); Globulin 3.7 g/dL (2.3-3.5); Phosphorus 2.5 mg/dL (2.5-4.9); Protein, Total 6.3 g/dL (6.4-8.2)
[2023-08-14 08:00] LABS: PT Prothrombin Time 11.5 SECONDS (9.5-12.5); Protime INR 1.05
[2023-08-14] MEDS: PANTOPRAZOLE 40MG TABLET PO SCH (08:33)
[2023-08-14] MEDS: PREGABALIN 50 MG CAP PO PRN (08:33)
[2023-08-14] MEDS ORDERED: PNEUMOCOCCAL VACCINE 0.5 ML IMVAC ONE (09:00)
--- NOTE | 2023-08-14 14:16 | P.PN ---
Subjective Date of Service: 08/14/23 Chief Complaint: Abdominal pain, aggressive IV hydrationIV antibioticOutpatient colonosc Subjective: No new changes (Pt states her pain was quite severe over the night, she was seen per Dr. Vigil. We will increase her diet from clear to full liquids today, continue IVF and IV abx. Will add intermittent Fentanyl dose for very severe pain) <Suyapa Cuellarlen - Last Filed: 08/14/23 14:12> Date of Service: 08/14/23 <Jaiosn Eason Nancy - Last Filed: 08/14/23 15:22> Review of Systems 10-point ROS is otherwise unremarkable General: As per HPI Gastrointestinal: As per HPI (denies Nausea today, continued bms, LLQ pain/spasms) <Suyapa Cuellar - Last Filed: 08/14/23 14:12> Physical Examination - Vital Signs Temperature: 98.3 F Blood Pressure: 157/65 Pulse: 58 Respirations: 13 Pulse Ox (%): 99 - Physical Exam General: Alert, In no apparent distress, Oriented x3 HEENT: Atraumatic, Normocephalic Neck: JVD not distended Respiratory: Clear to auscultation bilaterally, Normal air movement Cardiovascular: Normal pulses Capillary refill: <2 Seconds Gastrointestinal: Normal bowel sounds, Tenderness (LLQ/ paroxsymal pain) Musculoskeletal: No swelling Integumentary: No rashes Neurological: Normal speech, Normal tone Lymphatics: No axilla or inguinal lymphadenopathy External genitalia: Deferred Rectal: Deferred <Suyapa Cuellar - Last Filed: 08/14/23 14:12> Assessment And Plan - Plan Diverticulitis: Aggressive IV hydration IV antibiotic - flagyl and cipro Outpatient colonoscopy Pain control Monitor for perforation Dr. Vigil following CT abdomen and pelvis show diverticulitis and sigmoid mass <Kat Cuellary Cornelius - Last Filed: 08/14/23 14:12> - Plan Pt seen and examined. I agree with the note by the TOP LOADER. CT abd shows a sigmoid mass (4.8 x 4.7 cm) in the left lower quadrant. Consulted Gen surgeon. Will continue iv Cipro and flagyl and f/u blood cx. Will need outpt colonoscopy Hx of COPD: stable. Not in exacerbation. Hyponatremia: Na is 134<- 131. Will continue Dispo; Pending hospital course <Jaison Eason - Last Filed: 08/14/23 15:22>
[2023-08-14] MEDS: FENTANYL CITR 100 MCG/2 ML IV PRN (14:29)
--- NOTE | 2023-08-15 09:08 | P.PN ---
Subjective Date of Service: 08/15/23 Chief Complaint: Abdominal pain, aggressive IV hydrationIV antibioticOutpatient colonosc Subjective: Improving (advancing diet to soft this am) <Suyapa Cuellar - Last Filed: 08/15/23 09:04> Date of Service: 08/15/23 <Jaison Eason - Last Filed: 08/15/23 12:47> Review of Systems 10-point ROS is otherwise unremarkable Gastrointestinal: As per HPI <Suyapa Cuellar - Last Filed: 08/15/23 09:04> Physical Examination - Vital Signs Temperature: 97.5 F Blood Pressure: 133/65 Pulse: 60 Respirations: 12 Pulse Ox (%): 93 - Physical Exam General: Alert, In no apparent distress, Oriented x3, Cooperative HEENT: Atraumatic, Normocephalic Neck: Supple Respiratory: Normal air movement Cardiovascular: Normal pulses Capillary refill: <2 Seconds Gastrointestinal: Tenderness (LLQ) Musculoskeletal: No clubbing, No swelling Integumentary: No rashes Neurological: Normal speech, Normal tone, Normal affect Lymphatics: No axilla or inguinal lymphadenopathy External genitalia: Deferred Rectal: Deferred <Kat Cuellary Cornelius - Last Filed: 08/15/23 09:04> Assessment And Plan - Plan Diverticulitis: Aggressive IV hydration IV antibiotic - flagyl and cipro Outpatient colonoscopy Pain control Monitor for perforation Dr. Vigil following CT abdomen and pelvis show diverticulitis and sigmoid mass <Kat Cuellary Cornelius - Last Filed: 08/15/23 09:04> - Plan Pt seen and examined. I agree with the note by the WEIGHT LOSS PHYSICIAN. Pt is feeling better. Will dc soon with po abx. <Jaison Eason - Last Filed: 08/15/23 12:47>
[2023-08-15] MEDS: DIPHENHYDRAMINE 25 MG TAB/CAP PO ONE (10:41)
[2023-08-15 13:21] LABS: Absolute Basophils 0.1 K/uL (0-0.5); Absolute Eosinophils 0.1 K/uL (0-0.5); Absolute Lymphocytes (CBC) 2.2 K/uL (0.7-4.9); Absolute Monocytes 0.9 K/uL (0.1-1.3); Absolute Neutrophil 6.3 K/uL (1.8-8.0); Basophils % 1.5 % (0-1.3); Hematocrit 38.5 % (36.0-45.0); Hemoglobin 12.7 g/dL (12.0-15.0); Lymphocytes % 22.5 % (15.3-44.8); MCH 30.5 pg (27.0-35.0); MCHC 32.9 g/dL (32.0-36.0); MCV 92.7 fL (80-100); MPV 6.8 fL (7.6-11.3); Monocytes % 9.6 % (3.3-12.3); Neutrophils % 65.4 % (41.7-73.7); Nucleated Red Blood Cells % 0.1 % (0-0); Platelets 532 thou/uL (152-406); RBC Red Blood Cell Count 4.16 M/uL (3.86-4.86); Red Cell Distribution Width 14.2 % (12.1-15.2)
[2023-08-15 13:36] LABS: Anion Gap 9.2 mEq/L (5.0-15.0); Potassium 4.2 mEq/L (3.5-5.1)
[2023-08-15 16:40] VITALS: BMI 27.0
[2023-08-15] MEDS: cloNIDine HCL 0.1 MG TAB PO ONE (17:38)
[2023-08-15 23:27] VITALS: O2SAT 97
[2023-08-16 06:13] LABS: Anion Gap 6.1 mEq/L (5.0-15.0); Phosphorus 2.9 mg/dL (2.5-4.9); Potassium 4.1 mEq/L (3.5-5.1)
[2023-08-16 12:09] VITALS: BP 146/69; TEMP 97.7
[2023-08-16] MEDS: ACETAMINOPHEN 325 MG TABLET PO PRN (12:09)
--- NOTE | 2023-08-16 13:51 | P.DS ---
Admission Date: 08/13/23 Discharge Date: 08/16/23 Disposition: ROUTINE DISCHARGE Discharge Condition: GOOD Reason for Admission: Abdominal pain, aggressive IV hydrationIV antibioticOutpatient colonosc Brief History of Present Illness: Ms. Kumar is a 63-year-old female who arrives at the emergency department with left lower abdominal pain, spastic in nature. She states she had 3 bowel movements that were normal and without blood this a.m. In the emergency department her laboratory evaluation reveals a normal white count at 8.9, H/H 14.4/42.9, platelets 361, of note neutrophils 91.3%. Sodium 132, potassium 3.6, chloride 104, CO2 24, glucose 118, creatinine 0.64 with a BUN of 12. Imaging revealed, "there is a masslike lesion present in the sigmoid colon measuring 4.8 x 4.7 cm in the left lower quadrant. There are numerous diverticula as well in this region of the sigmoid. The findings could be related to malignancy or sequela of long-term diverticular disease. Colonoscopy is recommended for direct assessment of this region. New 9 mm nodule is present in the medial left lung base." Ms. Kumar will be admitted for further evaluation and treatment of diverticulitis with a consult to Dr. Vigil. Hospital Course: Pt is a 63yo female who presented with abdominal pain that was spastic in nature. On admision, lab studies showed normal white count at 8.9, H/H 14.4/42.9, platelets 361, of note neutrophils 91.3%. Sodium 132, potassium 3.6, chloride 104, CO2 24, glucose 118, creatinine 0.64 with a BUN of 12. CT abd shows a masslike lesion present in the sigmoid colon measuring 4.8 x 4.7 cm in the left lower quadrant. There were numerous diverticula as well in this region of the sigmoid. we admitted pt for colon mass an diverticulitis. We treated her with cipro and flagyl. Pt responded to abx and the symptom resolved. Gen surgeon advised her to follow up in clinic for further evaluation of the colon mass. Pt was advised to do colonoscopy after treatment of the diverticulitis. Pt was in NAD prior to discharge. Vital Signs/Physical Exam: Temp Pulse Resp BP Pulse Ox 97.7 F 57 18 146/69 H 96 08/16/23 12:09 08/16/23 11:56 08/16/23 11:56 08/16/23 11:56 08/16/23 11:56 Laboratory Data at Discharge: WBC 9.70 thou/uL (4.3-10.9) 08/15/23 13:09 Hgb 12.7 g/dL (12.0-15.0) 08/15/23 13:09 Hct 38.5 % (36.0-45.0) 08/15/23 13:09 Plt Count 532 thou/uL (152-406) H 08/15/23 13:09 PT 11.5 SECONDS (9.5-12.5) 08/14/23 06:17 INR 1.05 08/14/23 06:17 APTT 29.0 SECONDS (24.3-36.9) 08/14/23 06:17 Sodium 134 mEq/L (136-145) L 08/16/23 05:17 Potassium 4.1 mEq/L (3.5-5.1) 08/16/23 05:17 BUN 10 mg/dL (7-18) 08/16/23 05:17 Creatinine 0.43 mg/dL (0.55-1.02) L 08/16/23 05:17 Glucose 93 mg/dL (74-106) 08/16/23 05:17 Phosphorus 2.9 mg/dL (2.5-4.9) 08/16/23 05:17 Magnesium 2.0 mg/dL (1.6-2.4) 08/14/23 06:17 Total Bilirubin 0.6 mg/dL (0.2-1.0) 08/14/23 06:17 AST 12 U/L (15-37) L 08/14/23 06:17 ALT 39 U/L (13-56) 08/14/23 06:17 Alkaline Phosphatase 126 U/L (45-117) H D 08/14/23 06:17 Triglycerides 76 mg/dL (<150) 08/14/23 06:17 Cholesterol 135 mg/dL (<200) 08/14/23 06:17 HDL Cholesterol 36 mg/dL (40-60) L 08/14/23 06:17 Cholesterol/HDL Ratio 3.75 08/14/23 06:17 Lipase 23 U/L (13-75) 08/13/23 10:55 Home Medications: Ipratropium Neb [Atrovent*] 0.2 mg IH Q6H 08/13/23 Meclizine HCl 25 mg PO Q6H PRN 08/13/23 Pantoprazole [Protonix Tab*] 40 mg PO DAILY 08/13/23 Pregabalin [Lyrica*] 50 mg PO BID PRN 08/13/23 Trazodone HCl 100 mg PO BEDTIME 08/13/23 Ciprofloxacin HCl [Cipro 500 MG Tablet] 500 mg PO BID 7 Days #14 tab 08/16/23 Dicyclomine [Bentyl*] 20 mg PO TID 30 Days #90 cap 08/16/23 Nicotine [Nicoderm*] 21 mg TD DAILY 42 Days #42 patch 08/16/23 metroNIDAZOLE [Flagyl] 500 mg PO Q8H 7 Days #21 tab 08/16/23 New Medications: Dicyclomine [Bentyl*] 20 mg PO TID 30 Days #90 cap Ciprofloxacin HCl [Cipro 500 MG Tablet] 500 mg PO BID 7 Days #14 tab metroNIDAZOLE [Flagyl] 500 mg PO Q8H 7 Days #21 tab Nicotine [Nicoderm*] 21 mg TD DAILY 42 Days #42 patch Physician Discharge Instructions: Continue ad ferdinand activity. Take home Cipro and flagyl as prescribed for 1 week. Follow up with Gen surgeon in 2 weeks. Follow up with PCP in 1 - 2 weeks. Diet: AHA Activity: Ad ferdinand Followup: Johnathan Kaufman DO, DO [Primary Care Provider] - 1-2 Weeks Zan Vigil MD [ACTIVE - CAN ADMIT] - 1-2 Weeks
--- NOTE | 2023-08-16 15:17 | EKG ---
Test Date: 2023-08-13 Test Time: 10:45:41 Operations And Intelligence Assistant: MB MEASUREMENT RESULTS: Intervals: Rate: 76 RI: 152 QRSD: 90 QT: 394 QTc: 443 [place]: P: 80 RI: 152 QRS: -71 T: 70 INTERPRETIVE STATEMENTS: Normal sinus rhythm Left anterior fascicular block Anteroseptal infarct, age undetermined Abnormal ECG Compared to ECG 08/05/2023 10:20:08 Left anterior fascicular block now present Ventricular premature complex(es) no longer present Left-axis deviation no longer present Myocardial infarct finding still present Electronically Signed On 08-16-23 15:03:10 CDT by Amor Marks
== END 2023-08-16 14:27 | disposition home or self-care (01) | DRG 394 ==
LOC: ER 10:15 → 4TH 12:11
PROVIDERS: ADMIT Hospitalist; ATTEND Hospitalist
DX: K63.89 Other specified diseases of intestine (principal); E87.1 Hypo-osmolality and hyponatremia; K57.32 Diverticulitis of large intestine without perforation or abscess without bleeding; J44.9 Chronic obstructive pulmonary disease, unspecified; K57.30 Diverticulosis of large intestine without perforation or abscess without bleeding; F17.210 Nicotine dependence, cigarettes, uncomplicated; Z88.5 Allergy status to narcotic agent; Z60.2 Problems related to living alone; Z96.652 Presence of left artificial knee joint; Z79.899 Other long term (current) drug therapy
CPT/HCPCS: 36415; 71045; 74177; 80048; 80053; 80061; 80076; 81001; 83690; 83735; 83880; 84100; 84443; 84484; 85025; 85610; 85730; 93005; 96374; 96375; 99285; J0744; J1170; J1650; J2405; J2543; J3010; J7030; J7040; Q9967

== ENCOUNTER 2023-09-14 07:51 | Day surgery (SDC) | payer OTHER ==
[2023-09-14] MEDS: Ringers Lactate 1,000 ML IV ONE (08:30)
[2023-09-14 08:50] VITALS: O2SAT 100
[2023-09-14] MEDS ORDERED: propofoL 200 MG/20 ML VIAL IV ONE ×4 (09:41→10:57)
[2023-09-14] MEDS ORDERED: LIDOCAINE 1% MPF 5 ML VIAL ONE (09:42)
[2023-09-14 12:22] VITALS: BP 120/52; TEMP 97.1
== END 2023-09-14 12:00 | disposition home or self-care (01) ==
LOC: OR 07:51
PROVIDERS: ATTEND Surgery
PROC: 0DBN8ZX Excision of Sigmoid Colon, Via Natural or Artificial Opening Endoscopic, Diagnostic (ICD-10-PCS; 2023-09-14)
PROC: 0DBF8ZX Excision of Right Large Intestine, Via Natural or Artificial Opening Endoscopic, Diagnostic (ICD-10-PCS; principal; 2023-09-14 09:30)
DX: Z12.11 Encounter for screening for malignant neoplasm of colon (principal); K63.5 Polyp of colon; D12.5 Benign neoplasm of sigmoid colon
CPT/HCPCS: 88304; 45385; J2704 ×3; J2001; J7120; 88305

== ENCOUNTER 2024-04-03 10:03 | Emergency (ER) | payer OTHER ==
[2024-04-03 10:49] LABS: Specific Gravity 1.007 (1.005-1.030); Sqamous Epithelial <5 /HPF (None Seen); Urine Bacteria <20 /HPF (<20); Urine Bilirubin NEGATIVE (Negative); Urine Blood Trace (Negative); Urine Clarity Turbid (Clear); Urine Color Colorless (Yellow); Urine Culture Reflex Order REFLEXED; Urine Glucose NEGATIVE (Negative); Urine Ketones NEGATIVE (Negative); Urine Microscopic Reflex YN ORDER UMIC; Urine Nitrite NEGATIVE (Negative); Urine Protein NEGATIVE (Negative); Urine RBC <5 /HPF (None Seen); Urine Urobilinogen Normal (Normal)
[2024-04-03] MEDS ORDERED: KETOROLAC 30 MG/ML INJ ONE (12:05)
[2024-04-03 12:38] LABS: Absolute Eosinophils 0.1 K/uL (0-0.5); Absolute Monocytes 0.5 K/uL (0.1-1.3); Absolute Neutrophil 6.3 K/uL (1.8-8.0); Basophils % 0.5 % (0-1.3); Eosinophils % 0.8 % (0-4.4); Hematocrit 44.8 % (36.0-45.0); Hemoglobin 14.9 g/dL (12.0-15.0); Lymphocytes % 22.8 % (15.3-44.8); MCH 31.1 pg (27.0-35.0); MCHC 33.1 g/dL (32.0-36.0); MCV 93.7 fL (80-100); MPV 6.5 fL (7.6-11.3); Monocytes % 5.3 % (3.3-12.3); Neutrophils % 70.6 % (41.7-73.7); Nucleated Red Blood Cells % 0.1 % (0-0); Platelets 362 thou/uL (152-406); RBC Red Blood Cell Count 4.78 M/uL (3.86-4.86); Red Cell Distribution Width 13.7 % (12.1-15.2)
[2024-04-03 12:51] LABS: Albumin 3.7 g/dL (3.4-5.0); Albumin/Globulin Ratio 1.1 (1.1-1.8); Anion Gap 6.7 mEq/L (5.0-15.0); Bilirubin Total 0.7 mg/dL (0.2-1.0); Globulin 3.4 g/dL (2.3-3.5); Potassium 3.7 mEq/L (3.5-5.1); Protein, Total 7.1 g/dL (6.4-8.2)
--- NOTE | 2024-04-03 14:05 | ER ---
Nurse's Notes [facility] Name: Yumi Kumar Age: 63 yrs Sex: Female : 1960 Arrival Date: 04/03/2024 Time: 10:03 Bed 11 Private MD: Diagnosis: UTI/ Urinary tract infection, site not specified Presentation: 04/03 10:19 Chief complaint: Patient states: Urinary frequency that began 2 weeks ago and now some ss incontinence since last night. Pt reports she has been self medicating with Amoxicillin she had at home and AZO. Also c/o vaginal itching/ burning now. Coronavirus screen: Client denies travel out of the [place] in the last 14 days. Ebola Screen: Patient denies exposure to infectious person. Patient denies travel to an Ebola-affected area in the 21 days before illness onset. Initial Sepsis Screen: Does the patient meet any 2 criteria? No. Patient's initial sepsis screen is negative. Does the patient have a suspected source of infection? No. Patient's initial sepsis screen is negative. Risk Assessment: Do you want to hurt yourself or someone else? Patient reports no desire to harm self or others. Onset of symptoms was March 20, 2024. 10:19 Method Of Arrival: Ambulatory ss 10:19 Acuity: JUANITA 3 ss Historical: - Allergies: 10:21 Morphine; ss - PMHx: 10:21 COPD; ss - PSHx: 10:21 knee; wrist; ss Screenin:36 [facility] ED Fall Risk Assessment (Adult) History of falling in the last 3 months, jb4 including since admission No falls in past 3 months (0 pts) Confusion or Disorientation No (0 pts) Intoxicated or Sedated No (0 pts) Impaired Gait No (0 pts) Mobility Assist Device Used No (0 pt) Altered Elimination No (0 pt) Score/Fall Risk Level 0 - 2 = Low Risk Oriented to surroundings, Maintained a safe environment. Abuse screen: Denies threats or abuse. Nutritional screening: No deficits noted. Tuberculosis screening: No symptoms or risk factors identified. Assessment: 12:36 General: Appears in no apparent distress. uncomfortable, Behavior is calm, cooperative, jb4 appropriate for age. Pain: Complains of pain in abdomen Pain radiates to neck Pain currently is 8 out of 10 on a pain scale. Neuro: Level of Consciousness is awake, alert, obeys commands, Oriented to person, place, time, situation. Cardiovascular: Patient's skin is warm and dry. Respiratory: Airway is patent Respiratory effort is even, unlabored, Respiratory pattern is regular, symmetrical. GI: Reports lower abdominal pain. : Reports burning with urination, urinary frequency. Derm: Skin is intact, Skin is pink, warm \T\ dry. Musculoskeletal: Circulation, motion, and sensation intact. Range of motion: intact in all extremities. 13:42 Reassessment: Patient appears in no apparent distress at this time. Patient and/or jb4 family updated on plan of care and expected duration. Pain level reassessed. Patient is alert, oriented x 3, equal unlabored respirations, skin warm/dry/pink. Vital Signs: 10:19 BP 186 / 84; Pulse 55; Resp 15; Temp 98; Pulse Ox 96% on R/A; Weight 63.5 kg; Height 5 ss ft. 2 in. ; Pain 8/10; 12:36 BP 177 / 77; Pulse 51; Resp 16; Pulse Ox 97% on R/A; jb4 10:19 Body Mass Index 25.61 (63.50 kg, 157.48 cm) ss 10:19 Pain Scale: Adult ss ED Course: 10:08 Patient arrived in ED. ra3 10:11 Kimber Franco MD is Attending Physician. gb1 10:21 Triage completed. ss 10:21 Arm band placed on right wrist. ss 10:39 Jeannie Siegel, ROSEMARIE is Primary Nurse. ss 10:39 Urinalysis w/ reflexes Sent. ss 12:27 Initial lab(s) drawn, by dc, sent to lab. Inserted saline lock: 20 gauge in right jb4 antecubital area, using aseptic technique. Blood collected. 12:29 CBC with Diff Sent. jb4 12:29 CMP Sent. jb4 12:29 Lipase Sent. jb4 12:36 Patient has correct armband on for positive identification. Bed in low position. Call jb4 light in reach. Side rails up X 1. Provided Education on: plan of care. 12:36 No provider procedures requiring assistance completed. jb4 Administered Medications: 12:35 Drug: Ketorolac IVP 30 mg IVP once Route: IVP; Site: left antecubital; jb4 Medication: 12:36 VIS not applicable for this client. jb4 Outcome: 14:04 Discharge ordered by MD. post 14:55 Patient left the ED. jb4 Signatures: Jeannie Siegel RN RN Paul Woo RN RN jb4 Kimber Franco MD MD gb1 Renata Mitchell 3
--- NOTE | 2024-04-03 14:05 | EDPHYS ---
Physician Documentation [facility] Name: Yumi Kumar Age: 63 yrs Sex: Female : 1960 Arrival Date: 04/03/2024 Time: 10:03 Bed 11 Private MD: ED Physician Kimber Franco HPI: 04/03 14:04 This 63 yrs old Female presents to ER via Ambulatory with complaints of gb1 Urinary Problem - Uncontrollable. 14:04 63-year-old female with dysuria and frequency urgency with some overflow gb1 incontinence as reported. She states that she has had some chills, no fever, no back pain. Patient has history of COPD.. Historical: - Allergies: 10:21 Morphine; ss - PMHx: 10:21 COPD; ss - PSHx: 10:21 knee; wrist; ss Exam: 14:04 Constitutional: This is a well developed, well nourished patient who is awake, alert, gb1 and in no acute distress. Head/Face: Normocephalic, atraumatic. Eyes: Pupils equal round and reactive to light, extra-ocular motions intact. Lids and lashes normal. Conjunctiva and sclera are non-icteric and not injected. Cornea within normal limits. Periorbital areas with no swelling, redness, or edema. ENT: Nares patent. No nasal discharge, no septal abnormalities noted. Tympanic membranes are normal and external auditory canals are clear. Oropharynx with no redness, swelling, or masses, exudates, or evidence of obstruction, uvula midline. Mucous membranes moist. Neck: Trachea midline, no thyromegaly or masses palpated, and no cervical lymphadenopathy. Supple, full range of motion without nuchal rigidity, or vertebral point tenderness. No Meningismus. Chest/axilla: Normal chest wall appearance and motion. Nontender with no deformity. No lesions are appreciated. Cardiovascular: Regular rate and rhythm with a normal S1 and S2. No gallops, murmurs, or rubs. Normal PMI, no JVD. No pulse deficits. Respiratory: Lungs have equal breath sounds bilaterally, clear to auscultation and percussion. No rales, rhonchi or wheezes noted. No increased work of breathing, no retractions or nasal flaring. Abdomen/GI: Soft, non-tender, with normal bowel sounds. No distension or tympany. No guarding or rebound. No evidence of tenderness throughout. Female : + Suprapubic tenderness unlike the patient. Skin: Warm, dry with normal turgor. Normal color with no rashes, no lesions, and no evidence of cellulitis. MS/ Extremity: Pulses equal, no cyanosis. Neurovascular intact. Full, normal range of motion. Neuro: Awake and alert, GCS 15, oriented to person, place, time, and situation. Cranial nerves II-XII grossly intact. Motor strength 5/5 in all extremities. Sensory grossly intact. Cerebellar exam normal. Normal gait. Vital Signs: 10:19 BP 186 / 84; Pulse 55; Resp 15; Temp 98; Pulse Ox 96% on R/A; Weight 63.5 kg; Height 5 ss ft. 2 in. ; Pain 810; 12:36 BP 177 / 77; Pulse 51; Resp 16; Pulse Ox 97% on R/A; jb4 10:19 Body Mass Index 25.61 (63.50 kg, 157.48 cm) ss 10:19 Pain Scale: Adult ss MDM: 11:10 Medical Screening Exam initiated gb 14:04 Data reviewed: vital signs, nurses notes, lab test result(s), CBC, electrolytes, gb1 urinalysis. ED course: 63-year-old female here with a mild urinary tract infection. Urine culture is sent. Patient is afebrile has a normal white count very low risk for acute pyelonephritis and I doubt infected stone at this time. She is able to urinate without difficulty I will discharge her home with ciprofloxacin and explicit return precautions for acute pyelonephritis which is compliant with prior discharge home today.. 04/03 10:22 Order name: Urinalysis w/ reflexes; Complete Time: 11:24 ss 04/03 10:52 Order name: Urine Culture EDMS 04/03 11:25 Order name: CBC with Diff; Complete Time: 14: gb04/03 11:25 Order name: CMP; Complete Time: 14: gb04/03 11:25 Order name: Lipase; Complete Time: 14:03 04/03 11:25 Order name: IV Saline Lock; Complete Time: 12:29 04/03 11:25 Order name: Labs collected and sent; Complete Time: 12:29 gb1 Administered Medications: 12:35 Drug: Ketorolac IVP 30 mg IVP once Route: IVP; Site: left antecubital; jb4 Disposition Summary: 04/03/24 14:04 Discharge Ordered Notes: Location: Home gb1 Problem: new gb1 Symptoms: have improved gb1 Condition: Stable gb1 Diagnosis - UTI/ Urinary tract infection, site not specified gb1 Followup: gb1 - With: Private Physician - When: - Reason: Recheck today's complaints Discharge Instructions: - Discharge Summary Sheet gb1 - Urinary Tract Infection, Adult, [id number] gb1 Forms: - Medication Reconciliation Form gb1 - Antibiotic Education gb1 - Prescription Opioid Use gb1 - Patient Portal Instructions gb1 - Leadership Thank You Letter gb1 Prescriptions: - Cipro 500 mg Oral Tablet - take 1 tablet ORAL route every 12 hours for 7 days; 14 tablet; Refills: 0, gb1 Product Selection Permitted Signatures: Dispatcher [employer] EDMS Jeannie Siegel RN RN ss Paul Woo RN RN jb4 Kimber Franco MD MD gb1 Corrections: (The following items were deleted from the chart) 10:22 10:22 Urinalysis+U.LAB.BRZ ordered. EDMS EDMS
[2024-04-03 15:19] VITALS: TEMP 98
[2024-04-03 15:25] VITALS: BP 177/77; O2SAT 97
== END 2024-04-03 14:55 | disposition home or self-care (01) ==
LOC: ER 10:03
DX: N39.0 Urinary tract infection, site not specified (principal)
CPT/HCPCS: 36415; 80053; 81001; 83690; 85025; 87077; 87086; 87088; 87186; 96374; 99284

== ENCOUNTER 2024-05-02 08:22 | Emergency (ER) | payer OTHER ==
[2024-05-02] MEDS ORDERED: FENTANYL CITR 100 MCG/2 ML ONE (09:04)
[2024-05-02] MEDS ORDERED: NA CHLORIDE 0.9% 1,000 ML ONE (09:05)
[2024-05-02] MEDS ORDERED: KETOROLAC 30 MG/ML INJ ONE (09:05)
[2024-05-02] MEDS ORDERED: ONDANSETRON 4 MG/2 ML VIAL ONE (09:05)
[2024-05-02 09:12] LABS: Absolute Basophils 0.1 K/uL (0-0.5); Absolute Eosinophils 0.1 K/uL (0-0.5); Absolute Lymphocytes (CBC) 1.8 K/uL (0.7-4.9); Absolute Monocytes 0.4 K/uL (0.1-1.3); Absolute Neutrophil 3.9 K/uL (1.8-8.0); Eosinophils % 0.9 % (0-4.4); Hematocrit 45.7 % (36.0-45.0); Hemoglobin 15.7 g/dL (12.0-15.0); Lymphocytes % 29.6 % (15.3-44.8); MCH 31.4 pg (27.0-35.0); MCHC 34.4 g/dL (32.0-36.0); MCV 91.2 fL (80-100); MPV 6.7 fL (7.6-11.3); Monocytes % 6.4 % (3.3-12.3); Neutrophils % 62.1 % (41.7-73.7); Nucleated Red Blood Cells % 0.1 % (0-0); Platelets 391 thou/uL (152-406); RBC Red Blood Cell Count 5.01 M/uL (3.86-4.86); Red Cell Distribution Width 13.7 % (12.1-15.2)
[2024-05-02 09:29] LABS: Albumin 3.9 g/dL (3.4-5.0); Albumin/Globulin Ratio 1.1 (1.1-1.8); Anion Gap 10.3 mEq/L (5.0-15.0); Bilirubin Total 0.6 mg/dL (0.2-1.0); Globulin 3.7 g/dL (2.3-3.5); Potassium 4.3 mEq/L (3.5-5.1); Protein, Total 7.6 g/dL (6.4-8.2)
[2024-05-02] MEDS ORDERED: KETAMINE HCL IN 0.9 % NACL 50 MG/5 ML SYRINGE IV ONE (09:43)
--- NOTE | 2024-05-02 09:58 | RAD REPORT ---
EXAMINATION: CT ABDOMEN AND PELVIS WITH CONTRAST CLINICAL INDICATION: Female, 63 years old.ABD PAIN TECHNIQUE: CT abdomen and pelvis was performed, with IV contrast, as per department protocol. Axial, sagittal and coronal reconstructions were obtained. One or more of the following dose reduction techniques were used: Automated exposure control, adjustment of the mA and/or kV according to the pat ient size, and/or iterative reconstruction. Unless otherwise specified, incidental findings do not require dedicated imaging follow-up. [id number]. COMPARISON: 08/13/2023 FINDINGS: The lack of intravenous contrast limits the sensitivity of this exam for evaluation of solid visceral organs, vascular structures, and retroperitoneum. LOWER CHEST: No acute process identified.No significant pericardial effusion. 10 mm nodule in the lef t lower lobe has slightly increased in size, previously 9 mm.It is only partially included in the [id number]. UPPER GI: No significant abnormality. LIVER: No significant focal abnormality. GALLBLADDER/BILE DUCTS: No biliary ductal dilatation.? PANCREAS: Atrophy, but otherwise unremarkable. SPLEEN: Splenic lesion measuring 2.6 cm is unchanged. ADRENALS: No adrenal masses. KIDNEYS AND URETERS: No hydronephrosis.No suspicious renal mass. ABDOMINAL AORTA AND OTHER VESSELS: Moderate atherosclerotic changes without aortic aneurysm. PERITONEUM: No abnormal free fluid. No free air. LYMPH NODES: No lymphadenopathy. ABDOMINAL WALL: Unremarkable SMALL BOWEL/COLON: Improved but not resolved thickening at the sigmoid colon.No bowel obstruction. Di verticulosis is again noted. No diverticulitis. URINARY BLADDER: Underdistended but grossly unremarkable. REPRODUCTIVE ORGANS: Right adnexal cyst which is simple in appearance measuring 2.1 cm is unchanged f rom multiple priors. MUSCULOSKELETAL: No acute or suspicious osseous abnormality. ADDITIONAL FINDINGS: None. IMPRESSION: No acute or significant abnormalities in the abdomen or pelvis, with evaluation limited by lack of IV contrast. Wall thickening of sigmoid colon has improved but not resolved. No evidence of active inflammation. The left lower lobe pulmonary nodule measures slightly larger but is only partially inc luded in the [id number]. Nonemergent chest CT could further evaluate.
[2024-05-02 10:25] LABS: Sqamous Epithelial <5 /HPF (None Seen); Urine Bacteria <20 /HPF (<20); Urine Bilirubin NEGATIVE (Negative); Urine Blood Negative (Negative); Urine Clarity Clear (Clear); Urine Color Light-Yellow (Yellow); Urine Culture Reflex Order NOT NEEDED; Urine Glucose NEGATIVE (Negative); Urine Ketones NEGATIVE (Negative); Urine Microscopic Reflex YN ORDER UMIC; Urine Nitrite NEGATIVE (Negative); Urine Protein NEGATIVE (Negative); Urine RBC <5 /HPF (None Seen); Urine Urobilinogen Normal (Normal); Urine WBC <5 /HPF (<5)
[2024-05-02 10:32] LABS: Specific Gravity > 1.030 (1.005-1.030)
--- NOTE | 2024-05-02 10:47 | EDPHYS ---
Physician Documentation [facility] Name: Yumi Kumar Age: 63 yrs Sex: Female : 1960 Arrival Date: 05/02/2024 Time: 08:22 Bed 4 Private MD: ED Physician Nathaniel Emery HPI: 05/02 09:12 This 63 yrs old Female presents to ER via Ambulatory with complaints of ec2 Pelvic Pain, Abdominal Pain. 09:12 Patient arrives today d/t concern for abd and pelvic pain, recent dx of uti. reports ec2 that she has been having abd pain for several months. also w/ complaints of loose stool for the past several days. Historical: - Allergies: 08:43 Morphine; iw - PMHx: 08:43 COPD; iw - PSHx: 08:43 knee; wrist; iw - Immunization history:: Adult Immunizations up to date. - Infectious Disease History:: Denies. - Social history:: Smoking status: Patient reports the use of cigarette tobacco products, smokes two packs cigarettes per day. ROS: 09:13 Constitutional: as per hpi ec2 Exam: 09:13 Constitutional: GEN: NAD Head: atraumatic Eyes: EOMI Ears: External ears are ec2 normal. CV: regular rate LUNGS: no respiratory distress ABD: non-distended, minimal lower abd ttp SKIN: no evidence of rashes MSK: no evidence of trauma Vital Signs: 08:40 BP 166 / 78; Pulse 71; Resp 18; Temp 97.6; Pulse Ox 98% on R/A; Weight 64.86 kg; Height iw 5 ft. 2 in. ; Pain 8/10; 11:04 BP 145 / 68; Pulse 98; Resp 16; Pulse Ox 98% on R/A; iw 08:40 Body Mass Index 26.15 (64.86 kg, 157.48 cm) iw 08:40 Pain Scale: Adult iw MDM: 08:37 Medical Screening Exam initiated ec2 09:13 Data reviewed: vital signs, nurses notes. ED course: Patient arrives today d/t concern ec2 for abd pain. exam is revealing for lower abd ttp. will obtain labs, ct imaging and treat the pt's pain. ddx includes uti, processes such as pyelo, diverticulitis. 10:46 ED course: CBC reassuring. Metabolic profile with proper electrolytes and renal ec2 function and LFTs. Urine is noninfectious with no inflammatory markers. Lipase within normal ranges. CT abdomen pelvis shows no acute intra-abdominal or pelvic process, sigmoid inflammation improved compared to previous. Patient also with pulmonary nodules noted which are not contributory with patient presentation today and can follow-up with outpatient care. I instructed the patient to follow-up with her primary care doctor. Return precautions given.. 05/02 08:50 Order name: CBC with Diff; Complete Time: 09:30 ec2 05/02 08:50 Order name: CMP; Complete Time: 09:30 ec2 05/02 08:50 Order name: Lipase; Complete Time: 09:30 ec2 05/02 08:50 Order name: Urinalysis w/ reflexes; Complete Time: 10:40 ec2 05/02 09:15 Order name: Abdomen ; Complete Time: 10:08 EDMS 05/02 08:50 Order name: IV Saline Lock; Complete Time: 09:01 ec2 05/02 08:50 Order name: Labs collected and sent; Complete Time: 09:01 ec2 05/02 09:41 Order name: Misc. Order: pain dose ketamine; Complete Time: 10:11 ec2 Administered Medications: 09:09 Drug: fentaNYL (PF) IVP 25 mcg IVP once Route: IVP; Site: right forearm; iw 10:00 Follow up: Response: No adverse reaction; Pain is decreased iw 09:10 Drug: Ondansetron IVP 4 mg IVP once; over 2 minutes Route: IVP; Site: right forearm; iw 11:06 Follow up: Response: No adverse reaction iw 09:11 Drug: TORadol - Ketorolac IVP 15 mg IVP once Route: IVP; Site: right forearm; iw 11:05 Follow up: Response: No adverse reaction iw 09:30 Drug: NS 0.9% IV 1000 ml IV at 1 bolus Per protocol; to be given as a bolus over 60 iw minutes Route: IV; Rate: 1 bolus; Site: right forearm; 10:30 Follow up: IV Status: Completed infusion iw 10:00 Drug: Ketamine IVP 10 mg IVP once Route: IVP; Site: right forearm; iw 11:05 Follow up: Response: No adverse reaction; Pain is decreased iw Disposition Summary: 05/02/24 10:46 Discharge Ordered Notes: Location: Home ec2 Condition: Stable ec2 Diagnosis - Lower abdominal pain, unspecified ec2 Followup: ec2 - With: Private Physician - When: - Reason: Re-evaluation by your physician Discharge Instructions: - Discharge Summary Sheet ec2 - Abdominal Pain, Adult ec2 Forms: - Medication Reconciliation Form ec2 - Antibiotic Education ec2 - Prescription Opioid Use ec2 - Patient Portal Instructions ec2 - Leadership Thank You Letter ec2 Prescriptions: - Zofran 4 mg Oral Tablet - take 1 tablet ORAL route every 12 hours As needed; 20 tablet; Refills: 0, ec2 Product Selection Permitted - dicyclomine 10 mg Oral capsule - take 1 capsule ORAL route 3 times per day; 30 capsule; Refills: 0, Product ec2 Selection Permitted - methocarbamol 500 mg Oral tablet - take 2 tablets ORAL route 4 times per day; 20 tablet; Refills: 0, Product ec2 Selection Permitted Signatures: Dispatcher [employer] Melinda Andre RN RN iw Nathaniel Emery MD MD ec2 Corrections: (The following items were deleted from the chart) 08:50 08:50 CBC+H.LAB.BRZ ordered. EDMS EDMS 08:50 08:50 COMPREHENSIVE METABOLIC PANEL+C.LAB.BRZ ordered. EDMS EDMS 08:50 08:50 LIPASE+C.LAB.BRZ ordered. EDMS EDMS 08:50 08:50 Urinalysis+U.LAB.BRZ ordered. EDMS EDMS 08:50 08:50 Abdomen Pelvis W Con+CT.RAD.BRZ ordered. EDMS EDMS 09:13 09:12 Patient arrives today d/t concern for abd and pelvic pain, recent dx of uti. ec2 reports that she has been having abd pain for several months. . ec2 10:15 10:09 [place] ordered. ec2 iw
--- NOTE | 2024-05-02 10:47 | ER ---
Nurse's Notes [facility] Name: Yumi Kumar Age: 63 yrs Sex: Female : 1960 Arrival Date: 05/02/2024 Time: 08:22 Bed 4 Private MD: Diagnosis: Lower abdominal pain, unspecified Presentation: 05/02 08:40 Chief complaint: Patient states: lower abd pain/pelvic pain for months, has been iw getting worse over time, was recently treated for UTI, finished Bactrim , loose stool X 3 days. Coronavirus screen: At this time, the client does not indicate any symptoms associated with coronavirus-19. Initial Sepsis Screen: Does the patient meet any 2 criteria? No. Patient's initial sepsis screen is negative. Does the patient have a suspected source of infection? No. Patient's initial sepsis screen is negative. Risk Assessment: Do you want to hurt yourself or someone else? Patient reports no desire to harm self or others. Onset of symptoms. 08:40 Method Of Arrival: Ambulatory iw 08:40 Acuity: JUANITA 3 iw 08:40 Ebola Screen: No symptoms or risks identified at this time. iw Historical: - Allergies: 08:43 Morphine; iw - PMHx: 08:43 COPD; iw - PSHx: 08:43 knee; wrist; iw - Immunization history:: Adult Immunizations up to date. - Infectious Disease History:: Denies. - Social history:: Smoking status: Patient reports the use of cigarette tobacco products, smokes two packs cigarettes per day. Screenin:13 [facility] ED Fall Risk Assessment (Adult) History of falling in the last 3 months, iw including since admission No falls in past 3 months (0 pts) Confusion or Disorientation No (0 pts) Intoxicated or Sedated No (0 pts) Impaired Gait No (0 pts) Mobility Assist Device Used No (0 pt) Altered Elimination No (0 pt) Score/Fall Risk Level 0 - 2 = Low Risk Oriented to surroundings, Maintained a safe environment. Abuse screen: Denies threats or abuse. Nutritional screening: No deficits noted. Tuberculosis screening: No symptoms or risk factors identified. Assessment: 08:40 General: Appears in no apparent distress. Behavior is calm, cooperative. General: iw Denies fever, chills. Pain: Complains of pain in suprapubic area, right lower quadrant and left lower quadrant Pain currently is 8 out of 10 on a pain scale. Neuro: Level of Consciousness is awake, alert, obeys commands, Oriented to person, place, time, situation, Moves all extremities. Full function. Cardiovascular: Patient's skin is warm and dry. Respiratory: Respiratory effort is even, unlabored, Respiratory pattern is regular, symmetrical. GI: Abdomen is non-distended, Abd is soft X 4 quads Reports lower abdominal pain. GI: Bowel sounds present X 4 quads. : Reports pain in bilateral in suprapubic area lower quadrant(s) Denies burning with urination, vaginal bleeding. Derm: Skin is intact, is healthy with good turgor, is thin. Musculoskeletal: Range of motion: intact in all extremities. 09:12 Reassessment: pt medicated for pain prior to CT. iw 11:03 Reassessment: Patient appears in no apparent distress at this time. Patient and/or iw family updated on plan of care and expected duration. Pain level reassessed. Patient is alert, oriented x 3, equal unlabored respirations, skin warm/dry/pink. Patient states feeling better. Patient states symptoms have improved. Vital Signs: 08:40 BP 166 / 78; Pulse 71; Resp 18; Temp 97.6; Pulse Ox 98% on R/A; Weight 64.86 kg; Height iw 5 ft. 2 in. ; Pain 8/10; 11:04 BP 145 / 68; Pulse 98; Resp 16; Pulse Ox 98% on R/A; iw 08:40 Body Mass Index 26.15 (64.86 kg, 157.48 cm) iw 08:40 Pain Scale: Adult ED Course: 08:25 Patient arrived in ED. im 08:37 Nathaniel Emery MD is Attending Physician. ec2 08:43 Triage completed. iw 08:43 Arm band placed on. iw 08:45 Patient has correct armband on for positive identification. Provided Education on: . iw 08:50 Initial lab(s) drawn, by me, sent to lab. Inserted saline lock: 22 gauge in right iw forearm, using aseptic technique. Blood collected. Flushed with 10 mL NS. 09:01 Melinda Garcia, RN is Primary Nurse. iw 09:15 Abdomen In Process Unspecified. EDMS 11:04 No provider procedures requiring assistance completed. IV discontinued, intact, iw bleeding controlled, No redness/swelling at site. Pressure dressing applied. Administered Medications: 09:09 Drug: fentaNYL (PF) IVP 25 mcg IVP once Route: IVP; Site: right forearm; iw 10:00 Follow up: Response: No adverse reaction; Pain is decreased iw 09:10 Drug: Ondansetron IVP 4 mg IVP once; over 2 minutes Route: IVP; Site: right forearm; iw 11:06 Follow up: Response: No adverse reaction iw 09:11 Drug: TORadol - Ketorolac IVP 15 mg IVP once Route: IVP; Site: right forearm; iw 11:05 Follow up: Response: No adverse reaction iw 09:30 Drug: NS 0.9% IV 1000 ml IV at 1 bolus Per protocol; to be given as a bolus over 60 iw minutes Route: IV; Rate: 1 bolus; Site: right forearm; 10:30 Follow up: IV Status: Completed infusion iw 10:00 Drug: Ketamine IVP 10 mg IVP once Route: IVP; Site: right forearm; iw 11:05 Follow up: Response: No adverse reaction; Pain is decreased iw Medication: 09:12 VIS not applicable for this client. iw Outcome: 10:46 Discharge ordered by . ec2 11:04 Discharged to home ambulatory, iw 11:04 Condition: good 11:04 Discharge instructions given to patient, Instructed on discharge instructions, follow up and referral plans. medication usage, Demonstrated understanding of instructions, follow-up care, medications, Prescriptions given X 3, 11:06 Patient left the ED. iw Signatures: Dispatcher [employer] Melinda Andre RN RN Deb Maya Edwin, MD MD ec2
[2024-05-02 11:19] VITALS: TEMP 97.6; O2SAT 98
[2024-05-02 11:25] VITALS: BP 145/68
== END 2024-05-02 11:06 | disposition home or self-care (01) ==
LOC: ER 08:22
DX: R10.30 Lower abdominal pain, unspecified (principal); R10.2 Pelvic and perineal pain; F17.210 Nicotine dependence, cigarettes, uncomplicated
CPT/HCPCS: 96361; 85025; 81001; 36415; 83690; 80053; 74176; 96375; 96374; 99284; Q9967; J3010; J2405; J7030

== ENCOUNTER 2024-07-07 11:55 | Inpatient (IN) | payer OTHER ==
[2024-07-07] MEDS ORDERED: FENTANYL CITR 100 MCG/2 ML ONE ×2 (12:47→14:06)
[2024-07-07] MEDS ORDERED: ONDANSETRON 4 MG/2 ML VIAL ONE (12:48)
[2024-07-07] MEDS ORDERED: MECLIZINE HCL 12.5 MG TAB ONE (12:48)
[2024-07-07] MEDS ORDERED: IPRATROPIUM BROM 0.5MG/2.5ML ONE (12:48)
[2024-07-07] MEDS ORDERED: ALBUTEROL 2.5 MG/3 ML NEB SOL ONE (12:48)
[2024-07-07] MEDS ORDERED: KETOROLAC 30 MG/ML INJ ONE (12:49)
[2024-07-07] MEDS ORDERED: NA CHLORIDE 0.9% 1,000 ML ONE (12:49)
[2024-07-07 13:09] LABS: Absolute Basophils 0.1 K/uL (0-0.5); Absolute Monocytes 1.2 K/uL (0.1-1.3); Absolute Neutrophil 11.7 K/uL (1.8-8.0); Basophils % 0.5 % (0-1.3); Hematocrit 42.6 % (36.0-45.0); Hemoglobin 14.7 g/dL (12.0-15.0); Lymphocytes % 7.5 % (15.3-44.8); MCH 31.7 pg (27.0-35.0); MCHC 34.6 g/dL (32.0-36.0); MCV 91.8 fL (80-100); MPV 6.8 fL (7.6-11.3); Monocytes % 8.3 % (3.3-12.3); Neutrophils % 83.7 % (41.7-73.7); Platelets 360 thou/uL (152-406); RBC Red Blood Cell Count 4.65 M/uL (3.86-4.86); Red Cell Distribution Width 14.4 % (12.1-15.2)
--- NOTE | 2024-07-07 13:12 | RAD REPORT ---
EXAM: Chest Single View HISTORY: 63 years Female DYSPNEA COMPARISON: 08/13/2023 FINDINGS: LUNGS/PLEURA: Hazy opacities in the lung bases bilaterally. Possible new nodule versus costochondral cartilage in the right upper lobe measuring 12 mm CARDIAC/MEDIASTINUM: The cardiac silhouette is within normal limits. UPPER ABDOMEN: No significant abnormality. BONES: No acute abnormality. LINES/TUBES/OTHER: N/A IMPRESSION: Hazy opacities in lung bases bilaterally could be due to underpenetration versus airspace disease. Th e former is favored.A CT of the abdomen and pelvis is pending. The lung bases should be included in the [id number]. Nodular opacity in the right upper lobe may reflect the costochondral cartilage margin but appears mo re conspicuous compared with prior. Recommend further evaluation with nonemergent chest CT.
[2024-07-07 13:29] LABS: Albumin 3.4 g/dL (3.4-5.0); Albumin/Globulin Ratio 0.9 (1.1-1.8); Anion Gap 7.7 mEq/L (5.0-15.0); Bilirubin Total 0.7 mg/dL (0.2-1.0); Potassium 3.7 mEq/L (3.5-5.1); Protein, Total 7.4 g/dL (6.4-8.2); Troponin High Sensitivity 4.5 pg/mL (<58.9)
--- NOTE | 2024-07-07 14:07 | RAD REPORT ---
EXAMINATION: Abdomen Pelvis W Contrast CLINICAL INDICATION: Female, 63 years old.ABD PAIN TECHNIQUE: CT abdomen and pelvis was performed, after the administration of IV contrast, as per [facility]. Axial, sagittal and coronal reconstructions were obtained. One or more of the following dose reduction techniques were used: Automated exposure control, adjustment of the mA and/o r kV according to patient size, and/or iterative reconstruction. Unless otherwise specified, incidental findings do not require dedicated imaging follow-up. [id number]. COMPARISON: 08/13/2023 FINDINGS: LOWER CHEST: No acute process identified.No significant pericardial effusion. UPPER GI: No significant abnormality. LIVER: Hepatic steatosis, but otherwise unremarkable. GALLBLADDER/BILE DUCTS: No biliary ductal dilatation.? PANCREAS: Atrophy but no acute findings. SPLEEN: Splenic lesion measuring 2.5 cm is unchanged. ADRENALS: No adrenal masses. KIDNEYS AND URETERS: No hydronephrosis.Left-sided urothelial thickening and enhancement.No renal calc dennis.No ureteral calculi. Left renal cyst. ABDOMINAL AORTA AND OTHER VESSELS: Moderate atherosclerotic changes without aortic aneurysm. PERITONEUM: No abnormal free fluid. No free air. LYMPH NODES: No pathologic lymphadenopathy. ABDOMINAL WALL: Unremarkable SMALL BOWEL/COLON: Irregular thickening at the sigmoid colon which is overall improved from prior. Mo derate diverticulosis without diverticulitis. Moderate formed stool burden. URINARY BLADDER: Underdistended but grossly unremarkable. REPRODUCTIVE ORGANS: 2.3 cm right adnexal cyst which is unchanged since at least 2019 and presumably benign. MUSCULOSKELETAL: Severe degenerative changes are present at L5-S1. ADDITIONAL FINDINGS: None. IMPRESSION: No acute findings within the abdomen or pelvis. Diverticulosis without diverticulitis. Nonspecific, nonmasslike left ureteral enhancement which could be from infection or inflammation such as from an ascending urinary tract infection. Correlate with urinalysis. No hydronephrosis
[2024-07-07] MEDS ORDERED: HYDROMORPHONE HCL 0.5 MG/0.5 ML INJ ONE (15:38)
[2024-07-07 16:33] LABS: Specific Gravity > 1.030 (1.005-1.030); Sqamous Epithelial <5 /HPF (None Seen); Urine Bacteria 20-50 /HPF (<20); Urine Bilirubin NEGATIVE (Negative); Urine Blood 1+ (Negative); Urine Clarity Extremely Turbid (Clear); Urine Color Light-Yellow (Yellow); Urine Crystals Unidentified Few /HPF (None Seen); Urine Glucose NEGATIVE (Negative); Urine Ketones NEGATIVE (Negative); Urine Micro Reflex YN NO BILL MICROSCOPIC; Urine Mucus Slight /HPF (None Seen); Urine Nitrite 1+ (Negative); Urine Protein TRACE (Negative); Urine Urobilinogen Normal (Normal); Urine WBC >50 /HPF (<5); Urine WBC Clump Rare /HPF (None Seen); Urine Yeast (Budding) Trace /HPF (None Seen)
--- NOTE | 2024-07-07 16:59 | EDPHYS ---
Physician Documentation [facility] Name: Yumi Kumar Age: 63 yrs Sex: Female : 1960 Arrival Date: 07/07/2024 Time: 11:55 Bed 2 Private MD: ED Physician Aime Cunha HPI: 07/07 12:56 This 63 yrs old Female presents to ER via Wheelchair with complaints of Abdominal Pain, rt Nausea, Back Pain, Dizziness, bodyaches. 12:56 Patient is a chronic pains to the lower abdomen for some time, has had 2 episodes of rt diverticulitis. States that the past 2 days, her lower abdominal pain is worsened with associated nausea, vomiting, dizziness as well as shortness of breath. Patient does smoke 2 packs/day and has a history of COPD. Denies other acute complaints at this time, symptoms are moderate in severity, no other aggravating alleviating factors.. Historical: - Allergies: 12:32 Morphine; cm10 - PMHx: 12:32 COPD; cm10 - PSHx: 12:32 knee; wrist; cm10 - Immunization history:: Adult Immunizations up to date. - Infectious Disease History:: Denies. - Social history:: Smoking status: Patient reports the use of cigarette tobacco products, smokes two packs cigarettes per day. ROS: 12:56 Constitutional: Negative for fever, chills, and weight loss, Cardiovascular: Negative rt for chest pain, palpitations, and edema, MS/Extremity: Negative for injury and deformity, Skin: Negative for injury, rash, and discoloration, 12:56 Respiratory: Positive for cough, shortness of breath, 12:56 Abdomen/GI: Positive for abdominal pain, nausea and vomiting, 12:56 Neuro: Positive for dizziness, Negative for loss of consciousness, Exam: 12:56 Constitutional: This is a well developed, well nourished patient who is awake, alert, rt and in no acute distress. Head/Face: Normocephalic, atraumatic. Chest/axilla: Normal chest wall appearance and motion. Nontender with no deformity. No lesions are appreciated. Cardiovascular: Regular rate and rhythm with a normal S1 and S2. No gallops, murmurs, or rubs. Normal PMI, no JVD. No pulse deficits. Skin: Warm, dry with normal turgor. Normal color with no rashes, no lesions, and no evidence of cellulitis. MS/ Extremity: Pulses equal, no cyanosis. Neurovascular intact. Full, normal range of motion. 12:56 Respiratory: Faint wheezes heard bilateral lung barry, no respiratory distress, 12:56 Abdomen/GI: Tenderness in lower quadrants with mild guarding, no rebound, distention, 13:20 ECG was reviewed by the Attending Physician. rt Vital Signs: 12:31 BP 147 / 75; Pulse 87; Resp 15; Temp 99.8; Pulse Ox 94% on R/A; Weight 63.05 kg; Height cm10 5 ft. 2 in. ; Pain 8/10; 13:14 BP 139 / 66; Pulse 79; Resp 18; Pulse Ox 98% on Nebulizer Mask; ll1 14:11 Resp 20; Pulse Ox 90% on R/A; ll1 14:11 Pulse Ox 93% on 2 lpm NC; ll1 15:00 BP 136 / 63; Pulse 73; Resp 20; Pulse Ox 95% on 2 lpm NC; ll1 16:00 BP 128 / 66; Pulse 76; Resp 15; Pulse Ox 93% on R/A; jb4 17:00 BP 142 / 66; Pulse 73; Resp 16; Pulse Ox 95% on R/A; jb4 12:31 Body Mass Index 25.42 (63.05 kg, 157.48 cm) cm10 12:31 Pain Scale: Adult cm10 MDM: 12:32 Medical Screening Exam initiated rt 16:58 Differential diagnosis: Diverticulitis, pyelonephritis. Data reviewed: vital signs, rt nurses notes, lab test result(s), EKG, radiologic studies. Consideration of Admission/Observation Patient was admitted/placed on observation. Management of patient was discussed with the following: Hospitalist: Agrees to admit. I considered the following discharge prescriptions or medication management in the emergency department Medications were administered in the Emergency Department. See MAR. Independent interpretation of the following test(s) in the Emergency Department CT Scan: My interpretation is No bowel obstruction syndrome interpretation of CT scan images. Care significantly affected by the following chronic conditions: Chronic Obstructive Pulmonary Disease. Counseling: I had a detailed discussion with the patient and/or guardian regarding the historical points, exam findings, and any diagnostic results supporting the discharge/admit diagnosis, lab results, radiology results, the need for further work-up and treatment in the hospital. Response to treatment: the patient's symptoms have mildly improved after treatment. ED course: Patient's initial presentation was not thought to be due to infectious etiology, rather chronic abdominal pain it. Once urinary infection was confirmed on urinalysis, blood cultures, lactate were drawn. Her only SIRS criteria is leukocytosis, she met no other SIRS criteria. Nonetheless, will treat with IV fluids, Rocephin. 07/07 12:43 Order name: CBC with Diff; Complete Time: 13:12 rt 07/07 12:43 Order name: CMP; Complete Time: 13:29 rt 07/07 12:43 Order name: Lipase; Complete Time: 13:29 rt 07/07 12:43 Order name: Troponin High Sensitivity; Complete Time: 13:29 rt 07/07 14:09 Order name: UAM; Complete Time: 16:34 rt 07/07 16:39 Order name: Lactate w/ 2H reflex if indic. rt 07/07 16:39 Order name: Protime (+inr) rt 07/07 16:39 Order name: Ptt, Activated rt 07/07 16:49 Order name: Blood Culture Adult (2) rt 07/07 17:21 Order name: Basic Metabolic Panel EDMS 07/07 17:21 Order name: Basic Metabolic Panel EDMS 07/07 17:21 Order name: Basic Metabolic Panel EDMS 07/07 17:21 Order name: Basic Metabolic Panel EDMS 07/07 17:21 Order name: CBC with Automated Diff EDMS / 17:21 Order name: CBC with Automated Diff EDMS / 17:21 Order name: CBC with Automated Diff EDMS /14 17:21 Order name: CBC with Automated Diff EDMS /14 17:21 Order name: Magnesium EDMS 07/07 17:21 Order name: Magnesium EDMS 07/07 17:21 Order name: Magnesium EDMS 07/07 17:21 Order name: Magnesium EDMS 07/07 12:43 Order name: CT Abd/Pelvis - IV Contrast Only; Complete Time: 14:08 rt 07/07 12:43 Order name: Chest Single View XRAY; Complete Time: 13:12 rt 07/07 12:43 Order name: IV Saline Lock; Complete Time: 12:44 rt 07/07 12:43 Order name: Labs collected and sent; Complete Time: 12:43 rt 07/07 12:43 Order name: EKG - Nurse/Tech; Complete Time: 13:03 rt 07/07 16:39 Order name: Cardiac monitoring; Complete Time: 17:42 rt 07/07 16:39 Order name: IV Saline Lock - Large Bore; Complete Time: 17:42 rt 07/07 16:39 Order name: O2 Per Protocol; Complete Time: 17:42 rt 07/07 16:39 Order name: O2 Sat Monitoring; Complete Time: 17:42 rt 07/07 16:39 Order name: Vital Signs; Complete Time: 17:42 rt EC:20 Rate is 83 beats/min. Rhythm is regular, Normal Sinus Rhythm with No ectopy, LAFB. Left rt axis deviation noted. NV interval is normal. QRS interval is normal. QT interval is normal. No Q waves. No ST changes noted. Interpreted by me. Administered Medications: 13:02 Drug: Meclizine PO 50 mg PO once Route: PO; iw 13:41 Follow up: Response: No adverse reaction ll1 13:03 Drug: TORadol - Ketorolac IVP 15 mg IVP once Route: IVP; Site: right forearm; iw 13:40 Follow up: Response: No adverse reaction; Pain is unchanged, physician notified ll1 13:03 Drug: Ondansetron IVP 4 mg IVP once; over 2 minutes Route: IVP; Site: right forearm; iw 13:40 Follow up: Response: No adverse reaction; Nausea is decreased ll1 13:03 Drug: NS 0.9% IV 1000 ml IV at 1 bolus Per protocol; to be given as a bolus over 60 iw minutes Route: IV; Rate: 1 bolus; Site: right forearm; 13:03 Drug: Albuterol Inhalation 2.5 mg Inhalation once Route: Inhalation; iw 13:40 Follow up: Response: No adverse reaction ll1 13:03 Drug: Ipratropium Inhalation Aerosol 0.5 mg Inhalation once Route: Inhalation; iw 13:41 Follow up: Response: No adverse reaction ll1 13:03 Drug: fentaNYL (PF) IVP 75 mcg IVP once Route: IVP; Site: right forearm; iw 13:41 Follow up: Response: No adverse reaction; Pain is unchanged, physician notified ll1 14:11 Drug: fentaNYL (PF) IVP 75 mcg IVP once {Note: pain 8/10 RASS 0.} Route: IVP; Site: ll1 right forearm; 15:49 Drug: HYDROmorphone IVP 0.5 mg IVP once Route: IVP; Site: right forearm; jb4 18:19 Follow up: Response: No adverse reaction; Marked relief of symptoms; Pain is decreased jb4 17:50 Drug: Rocephin IV 2 grams IV at calculated rate once; Given slow IV push per pharmarcy iw instructions Route: IV; Rate: calculated rate; Site: left hand; 18:18 Follow up: Response: No adverse reaction; IV Status: Completed infusion; IV Intake: jb4 100ml 17:50 Drug: NS 0.9% IV 1000 ml IV at 1000 ml once; to be given as a bolus over 60 minutes iw Route: IV; Rate: 1000 ml; Site: left hand; 18:19 Follow up: Response: No adverse reaction; IV Status: pt admitted; IV Intake: 500ml jb4 Disposition Summary: 07/07/24 16:58 Hospitalization Ordered Notes: Hospitalization Status: Inpatient Admission rt Provider: Wei Bennett rt [facility] rt Condition: Stable rt Problem: new rt Symptoms: have improved rt Bed/Room Type: Standard rt Room Assignment: 223(07/07/24 17:28) bd Diagnosis - Pyelonephritis acute rt - Leukocytosis rt Forms: - Medication Reconciliation Form rt - SBAR form rt - Leadership Thank You Letter rt Signatures: Dispatcher [employer] EDMS Kassie Arenas Irene, RN RN iw Paul Woo RN RN jb4 Shawn German RN RN ll1 Aime Cunha MD MD rt Wilda Tay RN RN cm10 Corrections: (The following items were deleted from the chart) 12:43 12:43 CBC+H.LAB.BRZ ordered. EDMS EDMS 12:43 12:43 COMPREHENSIVE METABOLIC PANEL+C.LAB.BRZ ordered. EDMS EDMS 12:43 12:43 LIPASE+C.LAB.BRZ ordered. EDMS EDMS 12:43 12:43 Troponin High Sensitivity+C.LAB.BRZ ordered. EDMS EDMS 12:43 12:43 Abdomen Pelvis W Con+CT.RAD.BRZ ordered. EDMS EDMS 12:44 12:44 Chest Single View+RAD.RAD.BRZ ordered. EDMS EDMS 14:11 14:11 Urinalysis W/Microscopic+U.LAB.BRZ ordered. EDMS EDMS 17:28 16:58 rt bd 17:32 16:39 Accucheck ordered. rt jb4
--- NOTE | 2024-07-07 16:59 | ER ---
Nurse's Notes [facility] Name: Yumi Kumar Age: 63 yrs Sex: Female : 1960 Arrival Date: 07/07/2024 Time: 11:55 Bed 2 Private MD: Diagnosis: Pyelonephritis acute;Leukocytosis Presentation: 07/07 12:31 Chief complaint: Patient states: Abdominal pain, nausea, diarrhea, body aches, cm10 dizziness, and unsteadiness of feet onset sunday. Coronavirus screen: Client denies travel out of the [place] in the last 14 days. Ebola Screen: Patient denies travel to an Ebola-affected area in the 21 days before illness onset. Initial Sepsis Screen: Does the patient meet any 2 criteria? No. Patient's initial sepsis screen is negative. Does the patient have a suspected source of infection? No. Patient's initial sepsis screen is negative. Risk Assessment: Do you want to hurt yourself or someone else? Patient reports no desire to harm self or others. Onset of symptoms was July 07, 2024. 12:31 Method Of Arrival: Wheelchair cm10 12:31 Acuity: JUANITA 3 cm10 Triage Assessment: 12:32 General: Appears uncomfortable, ill, Behavior is calm, cooperative. Neuro: No deficits cm10 noted. Level of Consciousness is awake, alert, obeys commands, Oriented to person, place, time, situation, Appropriate for age. Respiratory: No deficits noted. Airway is patent Respiratory effort is even, unlabored, Respiratory pattern is regular, symmetrical. Historical: - Allergies: 12:32 Morphine; cm10 - PMHx: 12:32 COPD; cm10 - PSHx: 12:32 knee; wrist; cm10 - Immunization history:: Adult Immunizations up to date. - Infectious Disease History:: Denies. - Social history:: Smoking status: Patient reports the use of cigarette tobacco products, smokes two packs cigarettes per day. Screenin:14 [facility] ED Fall Risk Assessment (Adult) History of falling in the last 3 months, ll1 including since admission No falls in past 3 months (0 pts) Confusion or Disorientation No (0 pts) Intoxicated or Sedated No (0 pts) Impaired Gait No (0 pts) Mobility Assist Device Used No (0 pt) Altered Elimination No (0 pt) Score/Fall Risk Level 0 - 2 = Low Risk Maintained a safe environment, Hourly rounding (assess needs \\T\\ fall precautionary measures) done. Abuse screen: Denies threats or abuse. Nutritional screening: No deficits noted. Tuberculosis screening: No symptoms or risk factors identified. Assessment: 13:12 General: Appears uncomfortable, ill, Behavior is calm, cooperative, appropriate for ll1 age, Reports fever for feeling ill for fatigue for. Pain: Complains of pain in abdomen Pain radiates to back Quality of pain is described as aching, crampy. Neuro: Reports dizziness, headache weakness. Cardiovascular: Reports chest pain, fatigue, lightheadedness, nausea, shortness of breath. Respiratory: Reports shortness of breath cough that is. GI: Reports lower abdominal pain, upper abdominal pain, cramping, diarrhea, nausea. Musculoskeletal: Reports "hurts all over". 13:55 Reassessment: No changes from previously documented assessment. Patient and/or family ll1 updated on plan of care and expected duration. Pain level reassessed. wants more pain medication, Dr. Cunha informed. 15:01 Reassessment: No changes from previously documented assessment. Patient and/or family ll1 updated on plan of care and expected duration. Pain level reassessed. Patient is alert, oriented x 3, equal unlabored respirations, skin warm/dry/pink. 16:00 Reassessment: Patient appears in no apparent distress at this time. Patient and/or jb4 family updated on plan of care and expected duration. Pain level reassessed. Patient is alert, oriented x 3, equal unlabored respirations, skin warm/dry/pink. 17:00 Reassessment: Patient appears in no apparent distress at this time. Patient and/or jb4 family updated on plan of care and expected duration. Pain level reassessed. Patient is alert, oriented x 3, equal unlabored respirations, skin warm/dry/pink. Vital Signs: 12:31 BP 147 / 75; Pulse 87; Resp 15; Temp 99.8; Pulse Ox 94% on R/A; Weight 63.05 kg; Height cm10 5 ft. 2 in. ; Pain 8/10; 13:14 BP 139 / 66; Pulse 79; Resp 18; Pulse Ox 98% on Nebulizer Mask; ll1 14:11 Resp 20; Pulse Ox 90% on R/A; ll1 14:11 Pulse Ox 93% on 2 lpm NC; ll1 15:00 BP 136 / 63; Pulse 73; Resp 20; Pulse Ox 95% on 2 lpm NC; ll1 16:00 BP 128 / 66; Pulse 76; Resp 15; Pulse Ox 93% on R/A; jb4 17:00 BP 142 / 66; Pulse 73; Resp 16; Pulse Ox 95% on R/A; jb4 12:31 Body Mass Index 25.42 (63.05 kg, 157.48 cm) cm10 12:31 Pain Scale: Adult cm10 ED Course: 11:59 Patient arrived in ED. al6 12:04 Aime Cunha MD is Attending Physician. rt 12:32 Triage completed. cm10 12:32 Arm band placed on right wrist. Patient placed in an exam room, on a stretcher. cm10 12:41 Shawn German, RN is Primary Nurse. ll1 12:50 No provider procedures requiring assistance completed. Missed attempt(s): 22 gauge in ll1 right antecubital area. Bleeding controlled, band aid applied, catheter tip intact. 12:51 Chest Single View XRAY In Process Unspecified. EDMS 12:53 Initial lab(s) drawn, by me, sent to lab. Inserted saline lock: 22 gauge in right ll1 forearm, using aseptic technique. Blood collected. Flushed with 10 mL NS. 13:14 Patient has correct armband on for positive identification. Bed in low position. ll1 Provided Education on: ER procedures and process. Client placed on continuous cardiac and pulse oximetry monitoring. NIBP monitoring applied. 13:18 Warm blanket given. PO fluids given. ll1 13:55 CT Abd/Pelvis - IV Contrast Only In Process Unspecified. EDMS 16:57 Wei Bennett PA is Hospitalizing Provider. rt 17:24 Inserted saline lock: 22 gauge in left hand, using aseptic technique. Blood collected. iw Flushed with 10 mL NS. 17:24 First set of blood cultures drawn by me. iw 18:17 Patient admitted, IV remains in place. jb4 Administered Medications: 13:02 Drug: Meclizine PO 50 mg PO once Route: PO; iw 13:41 Follow up: Response: No adverse reaction ll1 13:03 Drug: TORadol - Ketorolac IVP 15 mg IVP once Route: IVP; Site: right forearm; iw 13:40 Follow up: Response: No adverse reaction; Pain is unchanged, physician notified 1 13:03 Drug: Ondansetron IVP 4 mg IVP once; over 2 minutes Route: IVP; Site: right forearm; iw 13:40 Follow up: Response: No adverse reaction; Nausea is decreased 1 13:03 Drug: NS 0.9% IV 1000 ml IV at 1 bolus Per protocol; to be given as a bolus over 60 iw minutes Route: IV; Rate: 1 bolus; Site: right forearm; 13:03 Drug: Albuterol Inhalation 2.5 mg Inhalation once Route: Inhalation; iw 13:40 Follow up: Response: No adverse reaction 1 13:03 Drug: Ipratropium Inhalation Aerosol 0.5 mg Inhalation once Route: Inhalation; iw 13:41 Follow up: Response: No adverse reaction 1 13:03 Drug: fentaNYL (PF) IVP 75 mcg IVP once Route: IVP; Site: right forearm; iw 13:41 Follow up: Response: No adverse reaction; Pain is unchanged, physician notified 1 14:11 Drug: fentaNYL (PF) IVP 75 mcg IVP once {Note: pain 8/10 RASS 0.} Route: IVP; Site: ll1 right forearm; 15:49 Drug: HYDROmorphone IVP 0.5 mg IVP once Route: IVP; Site: right forearm; jb4 18:19 Follow up: Response: No adverse reaction; Marked relief of symptoms; Pain is decreased jb4 17:50 Drug: Rocephin IV 2 grams IV at calculated rate once; Given slow IV push per pharmarcy iw instructions Route: IV; Rate: calculated rate; Site: left hand; 18:18 Follow up: Response: No adverse reaction; IV Status: Completed infusion; IV Intake: jb4 100ml 17:50 Drug: NS 0.9% IV 1000 ml IV at 1000 ml once; to be given as a bolus over 60 minutes iw Route: IV; Rate: 1000 ml; Site: left hand; 18:19 Follow up: Response: No adverse reaction; IV Status: pt admitted; IV Intake: 500ml jb4 Medication: 13:14 VIS not applicable for this client. 1 Intake: 18:18 IV: 100ml; Total: 100ml. jb4 18:19 IV: 500ml; Total: 600ml. jb4 Outcome: 16:58 Decision to Hospitalize by Provider. rt 18:17 Admitted to Med/surg accompanied by tech, room 223, with chart, jb4 18:17 Condition: stable 18:17 Discharge instructions given to patient, family, Instructed on the need for admit, Demonstrated understanding of instructions, 18:20 Patient left the ED. jb4 Signatures: Dispatcher [employer] EDMelinda Romero, RN RN iw Paul Woo RN RN jb4 Shawn German RN RN ll1 Aime Cunha MD MD rt Wilda Tay RN RN cm10 Ayleen John6
--- NOTE | 2024-07-07 17:13 | P.PN ---
This is an attestation to [facility] note. Subjective: No chest pain or shortness of breath. Complaining of nausea, suprapubic pain, left flank pain. No obvious bleeding. Looks comfortable in the bed. Objective: General appearance: Alert and comfortable CVS: Normal S1 and S2 Lungs: Clear to auscultation bilaterally Abdomen: Soft, bowel sounds present, suprapubic tenderness and, mild left CVA tenderness Extremities: No lower extremity edema 63-year-old patient with left pyelonephritis, start IV antibiotics, follow-up on cultures. Right lung nodule will need follow-up with PCP. Fatty liver on CT scan, stable splenic lesion on CT scan will need to follow-up with PCP.
--- NOTE | 2024-07-07 17:14 | P.HP ---
Certification for Inpatient Patient admitted to: Inpatient Practitioner: I am a practitioner with admitting privileges, knowledge of patient current condition, hospital course, and medical plan of care. Services: Services provided to patient in accordance with Admission requirements found in Title 42 Section 412.3 of the Code of Federal Regulations Patient History Date of Service: 07/07/24 Reason for admission: Acute cystitis History of Present Illness: 63-year-old female with a past medical history COPD, tobacco use, presents to the emergency room with suprapubic abdominal pain. See reports headache, chills, nausea vomiting suprapubic abdominal pain she reports symptoms last or so the last 2 days. She reports recurrent UTIs. Was recently treated for UTI. She denies Tremors, alcohol withdrawals, chest pain, shortness of breath, edema, nausea vomiting diarrhea. She reports history of 2 pack-a-day smoking, 2-3 beers daily of alcohol use. Abdominal CT Left ureteral enhancement could be from infection or inflammation from ascending urinary tract infection, correlate with urinalysis. Plan to admit for pyelonephritis, suprapubic abdominal pain Allergies morphine Adverse Reaction (Mild, Verified 09/14/23 08:53) Hives Home Medications: Pantoprazole [Protonix Tab*] 40 mg PO DAILY 08/13/23 Pregabalin [Lyrica*] 50 mg PO BID PRN 08/13/23 Trazodone HCl 100 mg PO BEDTIME 08/13/23 Acetaminophen [Tylenol Extra Strength] 500 mg PO DAILY PRN 09/12/23 Albuterol Inhaler [Ventolin Inhaler] 2 puff IH Q6H PRN 09/12/23 Fluticasone Propion/Salmeterol [Wixela 500-50 Inhub] 1 each IH DAILY PRN 09/12/23 Montelukast [Singulair] 10 mg PO DAILY 09/12/23 Vit/Fe Fumarate/FA [ 1 Plus 1 Tablet] 1 tab PO DAILY 09/12/23 - Past Medical/Surgical History Diabetic: No -: left ear problems -: Cigarette abuse -: COPD -: arthritis -: L KNEE REPLACEMENT -: R WRIST SX -: -: BL EYES SX -: L EAR SX Psychosocial/ Personal History: Pt lives alone, . Her of colon cancer - Social History Alcohol use: Yes CD- Drugs: No Caffeine use: Yes Review of Systems 10-point ROS is otherwise unremarkable Physical Examination - Physical Exam General: Alert, In no apparent distress, Oriented x3, Other (chills) HEENT: Atraumatic, Normocephalic Neck: Supple, 2+ carotid pulse no bruit, JVD not distended Respiratory: Clear to auscultation bilaterally, Normal air movement Cardiovascular: Normal pulses, Regular rate/rhythm Capillary refill: <2 Seconds Gastrointestinal: Normal bowel sounds, Other (Suprapubic tenderness) Musculoskeletal: No clubbing, No swelling Integumentary: No breakdown, No significant lesion Neurological: Normal speech, Normal strength at 5/5 x4 extr, Cranial nerves 3-12 intact - Studies Laboratory Data (last 24 hrs) 07/07/24 07/07/24 12:52 12:52 WBC 13.90 H Hgb 14.7 Hct 42.6 Plt Count 360 Sodium 134 L Potassium 3.7 BUN 11 Creatinine 0.63 Glucose 109 H Total Bilirubin 0.7 AST 13 L ALT 15 Alkaline Phosphatase 88 Lipase 15 Assessment and Plan - Problems (Diagnosis) (1) Pyelonephritis Current Visit: Yes Status: Acute (2) Tobacco use Current Visit: Yes Status: Acute (3) Lung nodule Current Visit: Yes Status: Acute - Plan Assessment and plan Pyelonephritis History of ESBL Admit to [facility] Started on meropenem Urine culture IV fluids, as needed analgesia 2 pack-a-day smoker Alcohol use Hepatic steatosis Nicotine patch Educated on tobacco cessation Educated on alcohol cessation CAD Degenerative disc disease 2.3 cm right adnexal cyst Left renal cyst. CT Nonspecific, nonmasslike left ureteral enhancement which could be from infection or inflammation such as from an ascending urinary tract infection. Correlate with urinalysis. No hydronephrosis, Moderate atherosclerotic changes without aortic aneurysm.Moderate diverticulosis without diverticulitis. Moderate formed stool burden. Severe degenerative changes are present at L5- [id number] ORGANS: 2.3 cm right adnexal cyst which is unchanged since at least 2018 and presumably benign. Full code DVT Lovenox Diet cardiac Discharge Plan: Home - Advance Directives Does patient have a Living Will: No Does patient have a Durable POA for Healthcare: No - Code Status/Comfort Care Code Status: Full Code Critical Care: No Time Spent Managing Pts Care (In Minutes): 55
[2024-07-07 17:33] LABS: PT Prothrombin Time 11.8 SECONDS (10-13.0); PTT, Activated Partial Thromb 27.8 SECONDS (27.2-37.4); Protime INR 1.04
[2024-07-07] MEDS ORDERED: CEFTRIAXONE 2000 MG/VIAL ONE (17:38)
[2024-07-07] MEDS ORDERED: NA CHLORIDE 0.9% 100 ML ONE (17:39)
[2024-07-07] MEDS: KETOROLAC 30 MG/ML INJ IV ONE (18:39)
[2024-07-07] MEDS: Meropenem 500 MG in NA CHLORIDE 0.9% 100 ML IV SCH (18:40)
[2024-07-07] MEDS: NA CHLORIDE 0.9% 1,000 ML IV SCH (18:41)
[2024-07-07] MEDS: CODEINE 30MG/APAP 300MG TAB PO PRN (19:36)
[2024-07-07] MEDS: ACETAMINOPHEN 500 MG TAB PO PRN (20:06)
[2024-07-07] MEDS: NICOTINE 14 MG/PAT TD SCH (21:42)
[2024-07-08] MEDS: TRAMADOL HCL 50 MG TAB PO ONE (00:57)
[2024-07-08 04:21] LABS: Absolute Basophils 0.1 K/uL (0-0.5); Absolute Neutrophil 11.2 K/uL (1.8-8.0); Basophils % 0.4 % (0-1.3); Eosinophils % 0.1 % (0-4.4); Hematocrit 38.2 % (36.0-45.0); Hemoglobin 12.9 g/dL (12.0-15.0); Lymphocytes % 7.3 % (15.3-44.8); MCH 31.2 pg (27.0-35.0); MCHC 33.7 g/dL (32.0-36.0); MCV 92.6 fL (80-100); MPV 6.7 fL (7.6-11.3); Monocytes % 7.8 % (3.3-12.3); Neutrophils % 84.4 % (41.7-73.7); Platelets 272 thou/uL (152-406); RBC Red Blood Cell Count 4.12 M/uL (3.86-4.86); Red Cell Distribution Width 13.9 % (12.1-15.2)
[2024-07-08 04:49] LABS: Anion Gap 6.5 mEq/L (5.0-15.0); Potassium 3.5 mEq/L (3.5-5.1)
[2024-07-08] MEDS: POTASSIUM CL SA 10 MEQ TAB PO ONE (08:17)
[2024-07-08] MEDS: TRAMADOL HCL 50 MG TAB PO PRN (08:18)
[2024-07-08] MEDS ORDERED: CEFTRIAXONE 1,000 MG in NA CHLORIDE 0.9% 50 ML IVPB SCH (09:00)
[2024-07-08] MEDS: HYDROMORPHONE HCL 0.5 MG/0.5 ML INJ IV PRN (12:35)
[2024-07-08 14:13] LABS: Specific Gravity 1.018 (1.005-1.030); Sqamous Epithelial 20-50 /HPF (None Seen); Urine Bacteria <20 /HPF (<20); Urine Bilirubin NEGATIVE (Negative); Urine Blood 2+ (Negative); Urine Clarity Extremely Turbid (Clear); Urine Color Yellow (Yellow); Urine Crystals Unidentified Few /HPF (None Seen); Urine Culture Reflex Order REFLEXED; Urine Glucose NEGATIVE (Negative); Urine Ketones 2+ (Negative); Urine Microscopic Reflex YN ORDER UMIC; Urine Mucus Slight /HPF (None Seen); Urine Nitrite NEGATIVE (Negative); Urine Protein 1+ (Negative); Urine RBC 21-50 /HPF (None Seen); Urine Urobilinogen Normal (Normal); Urine WBC >50 /HPF (<5); Urine WBC Clump Few /HPF (None Seen); Urine Yeast (Budding) Trace /HPF (None Seen)
--- NOTE | 2024-07-08 16:09 | P.PN ---
Subjective Date of Service: 07/08/24 Chief Complaint: Acute cystitis Subjective: No chest pain or shortness of breath. Complaining of nausea, suprapubic pain, left flank pain. No obvious bleeding. Looks comfortable in the bed. Objective: General appearance: Alert and comfortable CVS: Normal S1 and S2 Lungs: Clear to auscultation bilaterally Abdomen: Soft, bowel sounds present, suprapubic tenderness and, mild left CVA tenderness present Extremities: No lower extremity edema Physical Examination - Vital Signs Temperature: 100 F Blood Pressure: 126/63 Pulse: 77 Respirations: 16 Pulse Ox (%): 93 Assessment And Plan - Plan Left Pyelonephritis History of ESBL Admit to [facility] Started on meropenem Urine culture pending BC +ve for GNR, will request ID consult, repeat blood cultures tomorrow IV fluids, as needed analgesia - Will need urology follow-up as an outpatient due to recurrent UTIs. 2 pack-a-day smoker Alcohol use Hepatic steatosis Nicotine patch Educated on tobacco cessation Educated on alcohol cessation 3. CAD Degenerative disc disease 4. Right lung nodule will need follow-up with PCP. 5. Fatty liver on CT scan, stable splenic lesion on CT scan will need to follow- up with PCP. Plan discussed with patient and nursing staff.
[2024-07-08] MEDS: ACETAMINOPHEN 325 MG TABLET PO PRN (17:21)
[2024-07-08 17:47] VITALS: BMI 25.4
[2024-07-08] MEDS: ENOXAPARIN 40 MG/0.4 ML SQ SCH (18:18)
[2024-07-08] MEDS: TRAZODONE 50 MG TABLET PO SCH (21:05)
[2024-07-09 05:53] LABS: Absolute Basophils 0.1 K/uL (0-0.5); Absolute Lymphocytes (CBC) 1.3 K/uL (0.7-4.9); Absolute Monocytes 0.8 K/uL (0.1-1.3); Absolute Neutrophil 5.9 K/uL (1.8-8.0); Basophils % 0.9 % (0-1.3); Eosinophils % 0.5 % (0-4.4); Hematocrit 37.3 % (36.0-45.0); Hemoglobin 12.9 g/dL (12.0-15.0); Lymphocytes % 16.4 % (15.3-44.8); MCH 31.7 pg (27.0-35.0); MCHC 34.4 g/dL (32.0-36.0); MCV 92.2 fL (80-100); MPV 6.8 fL (7.6-11.3); Monocytes % 9.4 % (3.3-12.3); Neutrophils % 72.8 % (41.7-73.7); Platelets 254 thou/uL (152-406); RBC Red Blood Cell Count 4.05 M/uL (3.86-4.86); Red Cell Distribution Width 13.9 % (12.1-15.2)
[2024-07-09 06:12] LABS: Anion Gap 8.6 mEq/L (5.0-15.0); Potassium 3.6 mEq/L (3.5-5.1)
[2024-07-09] MEDS: Meropenem 1,000 MG in NA CHLORIDE 0.9% 100 ML IV SCH (08:09)
[2024-07-09] MEDS ORDERED: Meropenem 1,000 MG in NA CHLORIDE 0.9% 100 ML IV SCH (09:00)
[2024-07-09] MEDS: ONDANSETRON 4 MG/2 ML VIAL IV PRN (09:09)
[2024-07-09] MEDS: POTASSIUM CL SA 10 MEQ TAB PO ONE (09:10)
--- NOTE | 2024-07-09 12:04 | P.PN ---
Subjective Date of Service: 07/09/24 Chief Complaint: Acute cystitis Subjective: No chest pain or shortness of breath. Complaining of suprapubic pain, and left flank pain, slowly improving. No nausea or vomiting. No obvious bleeding. Looks comfortable in the bed. Objective: General appearance: Alert and comfortable CVS: Normal S1 and S2 Lungs: Clear to auscultation bilaterally Abdomen: Soft, bowel sounds present, suprapubic tenderness and, mild left CVA tenderness present but better than yesterday Extremities: No lower extremity edema Physical Examination - Vital Signs Temperature: 99.2 F Blood Pressure: 151/70 Pulse: 64 Respirations: 16 Pulse Ox (%): 95 Assessment And Plan - Plan Left Pyelonephritis History of ESBL Started on meropenem Urine culture pending BC +ve for GNR, requested ID consult, repeat blood cultures today DC IV fluids, as needed analgesia - Will need urology follow-up as an outpatient due to recurrent UTIs. - WBC improved, fever improving as well. 2 pack-a-day smoker Alcohol use Hepatic steatosis Nicotine patch Educated on tobacco cessation Educated on alcohol cessation 3. CAD Degenerative disc disease 4. Right lung nodule will need follow-up with PCP. 5. Fatty liver on CT scan, stable splenic lesion on CT scan will need to follow- up with PCP. 6. HTN: Situational, as needed medications for now. Plan discussed with patient and nursing staff. Probably home in the next 2 to 3 days depending on culture results and need for IV antibiotics
[2024-07-09] MEDS: HYDRALAZINE HCL 20 MG/ML VIAL IV PRN (12:19)
--- NOTE | 2024-07-09 17:26 | CON ---
History Of Present Illness: This is a 63-year-old female. I was consulted for pyelonephritis. The patient has significant past medical history of COPD, heavy tobacco use, came into the emergency room with suprapubic abdominal discomfort and CVA angle pain. The patient's symptoms started about 2 day s ago and she was recently treated for urinary tract infection. Other symptoms included headache, ch ills, nausea, vomiting. The patient had concern regarding her blood cultures are showing gram-negati ve rods and she is currently on IV antibiotics including meropenem. She was given Rocephin before. Tolerating antibiotic without any problem. Past Medical History: As per HPI. Social History: Tobacco positive. Alcohol negative. Family History: Noncontributory. Medications: Meropenem. See MARs for other medications. Allergies: MORPHINE. Review of Systems: A 10-point review was performed. Physical Examination: General: This is a 63-year-old female, lying in bed, not in any acute cardiopulmonary distress. Vital Signs: Temperature 99.3 with T-max of 101.4, pulse 66, respirations 16, blood pressure 155/70. HEENT: Unremarkable. Neck: Supple. Lungs: Basal crackles. Heart: S1, S2. Regular. Abdomen: Soft. Bowel sounds present. Suprapubic tenderness and CVA tenderness noted. Extremities: No edema. Laboratory Data: Shows WBC 8.1, down from 13.9, hemoglobin 12.9, platelets 254. Chemistry shows BUN of 13, creatinine 0.4, albumin level of 3.4. Blood cultures done on 07/07 shows gram-negative rods. Assessment And Plan: 63-year-old female with pyelonephritis and bacteremia secondary to gram-negativ e rods, currently on meropenem. We will continue current treatment, recommendations for 2 weeks, pen ding culture sensitivity and specificity. Leukocytosis has improved. Chronic obstructive pulmonary disease. Heavy tobacco user. Monitor signs of infection with WBC and fever trends. Thank you, Dr. Carvajal, for consult. NF/MODL Voice ID: [id number] Report ID: [id number]
[2024-07-09] MEDS: PANTOPRAZOLE 40MG TABLET PO SCH (17:29)
[2024-07-09] MEDS: DULERA 100/5 (MOMETASONE/FORMOTEROL) INHALER IH SCH (20:09)
[2024-07-10 06:11] LABS: Anion Gap 8.6 mEq/L (5.0-15.0); Potassium 3.6 mEq/L (3.5-5.1)
[2024-07-10 06:12] LABS: Absolute Basophils 0.1 K/uL (0-0.5); Absolute Eosinophils 0.1 K/uL (0-0.5); Absolute Lymphocytes (CBC) 1.5 K/uL (0.7-4.9); Absolute Monocytes 0.7 K/uL (0.1-1.3); Absolute Neutrophil 3.5 K/uL (1.8-8.0); Basophils % 1.2 % (0-1.3); Eosinophils % 1.3 % (0-4.4); Hematocrit 37.7 % (36.0-45.0); Lymphocytes % 25.6 % (15.3-44.8); MCH 31.8 pg (27.0-35.0); MCHC 34.4 g/dL (32.0-36.0); MCV 92.6 fL (80-100); MPV 7.1 fL (7.6-11.3); Monocytes % 11.9 % (3.3-12.3); Nucleated Red Blood Cells % 0.1 % (0-0); Platelets 245 thou/uL (152-406); RBC Red Blood Cell Count 4.08 M/uL (3.86-4.86); Red Cell Distribution Width 14.1 % (12.1-15.2)
[2024-07-10] MEDS: ALBUTEROL INHALER 200 PUFF/6.7 GM IH PRN (10:00)
--- NOTE | 2024-07-10 12:35 | P.PN ---
Subjective Date of Service: 07/10/24 Chief Complaint: Acute cystitis Subjective: No chest pain or shortness of breath. Still Complaining of suprapubic pain, and left flank pain, slowly improving. No nausea or vomiting. No obvious bleeding. Looks comfortable in the bed. Objective: General appearance: Alert and comfortable CVS: Normal S1 and S2 Lungs: Clear to auscultation bilaterally Abdomen: Soft, bowel sounds present, suprapubic tenderness and, mild left CVA tenderness present Extremities: No lower extremity edema Physical Examination - Vital Signs Temperature: 98.6 F Blood Pressure: 137/70 Pulse: 61 Respirations: 14 Pulse Ox (%): 92 Assessment And Plan - Plan 1. Left Pyelonephritis with ESBL bactermia Started on meropenem BC +ve for ESBL, requested ID consult, repeat blood cultures pending DC IV fluids -as needed analgesia - Will need urology follow-up as an outpatient due to recurrent UTIs. - WBC improved, fever improving as well. 2 pack-a-day smoker Alcohol use Hepatic steatosis Nicotine patch Educated on tobacco cessation Educated on alcohol cessation 3. CAD Degenerative disc disease 4. Right lung nodule will need follow-up with PCP. 5. Fatty liver on CT scan, stable splenic lesion on CT scan will need to follow- up with PCP. 6. HTN: Situational, as needed medications for now. Plan discussed with patient and nursing staff. DC to SNF in the next 2 to 3 days depending on reepat culture results, need IV antibiotics, place PICC once cleared by ID 63 year old patient admitted for left-sided pyelonephritis, she has ESBL bacteremia, currently on meropenem, repeat blood cultures pending, will put PICC line once cleared by ID, she will need placement, I will request PT OT evaluation.
[2024-07-10] MEDS ORDERED: ENOXAPARIN 30 MG/0.3 ML SQ SCH (17:00)
[2024-07-10] MEDS: POTASSIUM CL SA 10 MEQ TAB PO ONE (20:19)
[2024-07-10] MEDS: Mupirocin NASAL 2 APPL/1 GM TUBE NAS SCH (20:19)
--- NOTE | 2024-07-10 22:23 | PN ---
Subjective: The patient is lying in bed. No new acute event. Able to tolerate antibiotic without a ny problems. No fever, nausea, vomiting, rashes. Objective: Vital Signs: Temperature 98, pulse 57, respirations 12, blood pressure 163/70. Lungs: Basal crackles. Heart: S1, S2. Regular. Abdomen: Soft, nontender. Bowel sounds present. Extremities: No edema. Laboratory Data: WBC 5.8, hemoglobin 13, platelets are 245. BUN 14, creatinine 0.4. The patient is currently on meropenem for E coli, ESBL in the blood. Assessment And Plan: 1. Escherichia coli, extended-spectrum beta-lactamase bacteremia and pyelonephritis. The patient to continue antibiotic for a total of 14 days. The patient will be transferred to [facility] for further management and rehab, and to complete her antibiotics. To get CBC and BMP while the patient is on antibiotic, Sunday and . Monitor signs of infection with WBC and fever trends. 2. Chronic obstructive pulmonary disease. 3. Heavy tobacco user. Consider cutting back on tobacco use while on antibiotic. No other recommendation. NF/MODL Voice ID: [id number] Report ID: [id number]
--- NOTE | 2024-07-11 02:35 | RAD REPORT ---
EXAM: XR Chest, 1 View CLINICAL HISTORY: The patient is 63 years old and is Female; PICC Line Placement TECHNIQUE: Frontal view of the chest. COMPARISON: No relevant prior studies available. FINDINGS: LUNGS: Unremarkable. No consolidation. PLEURAL SPACE: Unremarkable. No pneumothorax. HEART: Unremarkable. No cardiomegaly. MEDIASTINUM: Unremarkable. Normal mediastinal contour. BONES/JOINTS: Postsurgical changes cervical spine as noted. No acute fracture. VASCULATURE: Atherosclerosis of the aorta is present. TUBES, LINES AND DEVICES: Left upper extremity PICC is present with the tip in the SVC. UPPER ABDOMEN: Unremarkable as visualized. IMPRESSION: Left upper extremity PICC is present with the tip in the SVC. Electronically signed by: Corazon Walls MD 07/11/2024 01:39 AM CDT Due to temporary technical issues with the [employer] reporting system, reports are being hannah d by the in-house radiologist without review as a courtesy to ensure prompt reporting the interpreting radiologist is fully responsible for the content of the report. Transcribed Date/Time: 07/11/2024 2:35 AM
[2024-07-11 04:46] LABS: Absolute Basophils 0.1 K/uL (0-0.5); Absolute Eosinophils 0.1 K/uL (0-0.5); Absolute Lymphocytes (CBC) 1.6 K/uL (0.7-4.9); Absolute Monocytes 0.6 K/uL (0.1-1.3); Absolute Neutrophil 2.4 K/uL (1.8-8.0); Basophils % 1.3 % (0-1.3); Eosinophils % 1.5 % (0-4.4); Hematocrit 33.5 % (36.0-45.0); Hemoglobin 11.7 g/dL (12.0-15.0); Lymphocytes % 32.9 % (15.3-44.8); MCH 32.1 pg (27.0-35.0); MCHC 34.9 g/dL (32.0-36.0); MCV 91.9 fL (80-100); MPV 6.8 fL (7.6-11.3); Monocytes % 13.4 % (3.3-12.3); Neutrophils % 50.9 % (41.7-73.7); Nucleated Red Blood Cells % 0.1 % (0-0); Platelets 256 thou/uL (152-406); RBC Red Blood Cell Count 3.64 M/uL (3.86-4.86); Red Cell Distribution Width 14.2 % (12.1-15.2)
[2024-07-11 04:56] LABS: Anion Gap 5.9 mEq/L (5.0-15.0); Potassium 3.9 mEq/L (3.5-5.1)
[2024-07-11] MEDS: POTASSIUM CL SA 10 MEQ TAB PO ONE (10:38)
--- NOTE | 2024-07-11 17:42 | P.PN ---
Subjective Date of Service: 07/11/24 Chief Complaint: Acute cystitis Patient denies any complaint. No recorded fever. Physical Examination - Vital Signs Temperature: 98.1 F Blood Pressure: 137/65 Pulse: 59 Respirations: 16 Pulse Ox (%): 95 Assessment And Plan - Plan Physical examination General: Alert and oriented x3, NAD, HEENT: Anicteric sclera Neck: Supple, no elevated JVD Heart: Heart sounds 1 and 2 normal, regular rhythm, normal rate, no pedal edema Lungs: Clear to auscultation bilaterally, adequate breath sounds bilaterally, no rhonchi or crackles. Abdomen: Soft, nondistended, nontender, normal bowel sounds. Extremities: No tenderness, no deformity Skin: Normal skin turgor, no rash, no nodules or ulcers. Neuro: No focal motor deficit. Normal speech. Psychiatry: Normal mood, no agitation. Diagnosis Left pyelonephritis ESBL E. coli bacteremia Alcohol use Hepatic steatosis Coronary artery disease Pulmonary nodule Plan: Left pyelonephritis ESBL bacteremia Continue IV meropenem Infectious disease evaluated patient 14 days of IV meropenem recommended PICC line placed for IV antibiotic. visitor services representative assisting with arrangement for outpatient IV antibiotics. Urology follow-up as outpatient recommended for recurrent UTI. Alcohol use Hepatic steatosis Nicotine patch stable splenic lesion on CT scan will need to follow-up with PCP 3. CAD Degenerative disc disease Stable Pulmonary nodule Obtain CT chest Outpatient surveillance recommended. DVT prophylaxis: Lovenox Advanced directive: Full code
--- NOTE | 2024-07-11 18:12 | P.PN ---
Date of Service: 07/11/24 Subjective: The patient is lying in bed. No new acute event. Able to tolerate antibiotic without any problems. No fever, nausea, vomiting, rashes. Objective: Temp Pulse Resp BP Pulse Ox 98.1 F 59 16 137/65 95 07/11/24 17:52 07/11/24 17:52 07/11/24 17:52 07/11/24 17:52 07/11/24 17:52 neuro: aox3 Lungs: Basal crackles. Heart: S1, S2. Regular. Abdomen: Soft, nontender. Bowel sounds present. Extremities: No edema. Laboratory Data: WBC 4.8, hemoglobin 11.7, platelets are 256. BUN 16, creatinine 0.36 blood culture 07/09 no growth urine culture 07/08 no growth blood culture 07/07/24 no growth 07/07/24 blood culture e coli ESBL Assessment And Plan: 1. ESBL E coli bacteremia and pyelonephritis. The patient is currently on meropenem continue antibiotic for a total of 14 days. tentative stop date july 22. The [facility] for [facility] management and rehab, and to complete her antibiotics. To get CBC and BMP while the patient is on antibiotic, Sunday and . Monitor signs of infection with WBC and fever trends. 2. Chronic obstructive pulmonary disease. 3. Heavy tobacco user. Consider cutting back on tobacco use while on antibiotic. case round and in agreement with Dr aranda
--- NOTE | 2024-07-11 20:36 | RAD REPORT ---
EXAM; Thorax W/ Con CLINICAL INDICATION: Pulmonary nodule TECHNIQUE: Routine CT scan of the chest with 100 cc Isovue-370 intravenous contrast. One or more of t he following dose reduction techniques were used: Automated exposure control, adjustment of the mA and/or kV according to patient size, and/or iterative reconstruction. Unless otherwise specified, inc idental findings do not require dedicated imaging follow-up. [id number]. COMPARISON: July 2023 CT abdomen. FINDINGS: 2 cm right upper lobe nodule is spiculated. 1.3 cm left lower lobe nodule is increased in size from July 2023 No mediastinal or hilar lymphadenopathy. No pleural effusion. No pericardial effusion. 4 mm sclerotic foci within a mid thoracic vertebral body is nonspecific IMPRESSION: 2 cm right upper lobe and 1.3 cm left lower lobe nodules. One may represent a bronchogenic carcinoma in the other metastasis. Another consideration is that they both represent metastasis.
[2024-07-12] MEDS: POTASSIUM CL SA 10 MEQ TAB PO ONE (12:16)
--- NOTE | 2024-07-12 16:58 | P.PN ---
Subjective Date of Service: 07/12/24 Chief Complaint: Acute cystitis Patient has no new complaint. She states she is eager to go home. No recorded fever. Physical Examination - Vital Signs Temperature: 98.1 F Blood Pressure: 133/68 Pulse: 62 Respirations: 16 Pulse Ox (%): 96 Assessment And Plan - Plan Physical examination General: Alert and oriented x3, NAD, Neck: No elevated JVD Heart: Heart sounds 1 and 2 normal, regular rhythm, normal rate, no pedal edema Lungs: Clear to auscultation bilaterally, adequate breath sounds bilaterally, no rhonchi or crackles. Abdomen: Soft, nondistended, nontender, normal bowel sounds. Skin: Normal skin turgor, no rash. Neuro: No focal motor deficit. Normal speech. Psychiatry: Normal mood, no agitation. Diagnosis Left pyelonephritis ESBL E. coli bacteremia Alcohol use Hepatic steatosis Coronary artery disease Pulmonary nodule Plan: Left pyelonephritis ESBL bacteremia Continue IV meropenem Infectious disease evaluated patient 14 days of IV meropenem recommended PICC line placed for IV antibiotic. Awaiting home IV meropenem arrangement for discharge. Urology follow-up as outpatient recommended for recurrent UTI. Alcohol use Hepatic steatosis Nicotine patch stable splenic lesion on CT scan will need follow-up with PCP 3. CAD Degenerative disc disease Stable Pulmonary nodule CT chest results reviewed. 2 nodules noted. Features suggest bronchogenic carcinoma metastasis. Patient may need CT-guided biopsy. DVT prophylaxis: Lovenox Advanced directive: Full code
[2024-07-13] MEDS: WATER FOR INJ,STERILE 10 ML ONE (05:41)
[2024-07-13] MEDS: ALTEPLASE 2 MG/VIAL IV ONE (05:48)
[2024-07-13 10:09] VITALS: O2SAT 93
[2024-07-13] MEDS: POTASSIUM CL SA 10 MEQ TAB PO ONE (10:27)
--- NOTE | 2024-07-13 13:54 | P.PN ---
Subjective Date of Service: 07/13/24 Chief Complaint: Acute cystitis Patient is complaining of lower abdominal pain which she states is chronic. She described the pain as intermittent and sharp. Nursing staff also reports 4 bouts of diarrhea-described as mucoid diarrhea. No recorded fever. Physical Examination - Vital Signs Temperature: 97.9 F Blood Pressure: 143/70 Pulse: 53 Respirations: 18 Pulse Ox (%): 92 Assessment And Plan - Plan Physical examination General: Alert and oriented x3, NAD, Heart: Heart sounds 1 and 2 normal, regular rhythm, normal rate, no pedal edema Lungs: Clear to auscultation bilaterally, adequate breath sounds bilaterally, no rhonchi or crackles. Abdomen: Soft, nondistended, nontender, normal bowel sounds. Skin: Normal skin turgor, no rash. Neuro: No focal motor deficit. Normal speech. Psychiatry: Normal mood, no agitation. Diagnosis Left pyelonephritis ESBL E. coli bacteremia Alcohol use Hepatic steatosis Coronary artery disease Pulmonary nodule Plan: Left pyelonephritis ESBL bacteremia Continue IV meropenem Infectious disease evaluated patient 14 days of IV meropenem recommended PICC line placed for IV antibiotic. Awaiting home IV meropenem arrangement for discharge. Urology follow-up as outpatient recommended for recurrent UTI. Alcohol use Hepatic steatosis Nicotine patch stable splenic lesion on CT scan will need follow-up with PCP 3. CAD Degenerative disc disease Stable Pulmonary nodule Ovarian cyst CT chest results reviewed and 2 nodules noted. Features suggest bronchogenic carcinoma versus metastasis. Patient advised to follow-up with her PCP Dr. Mandeep CANTU to coordinate further evaluations regarding the ovarian cyst by odd bundle worker and IR CT-guided biopsy of the pulmonary nodules if biopsy is feasible. Patient voiced understanding of the follow-ups. DVT prophylaxis: Lovenox Advanced directive: Full code
[2024-07-14 05:58] LABS: Absolute Basophils 0.1 K/uL (0-0.5); Absolute Eosinophils 0.1 K/uL (0-0.5); Absolute Monocytes 0.6 K/uL (0.1-1.3); Absolute Neutrophil 4.9 K/uL (1.8-8.0); Basophils % 1.3 % (0-1.3); Eosinophils % 1.6 % (0-4.4); Hematocrit 38.2 % (36.0-45.0); Hemoglobin 13.1 g/dL (12.0-15.0); Lymphocytes % 25.3 % (15.3-44.8); MCH 31.1 pg (27.0-35.0); MCHC 34.2 g/dL (32.0-36.0); MPV 6.7 fL (7.6-11.3); Neutrophils % 63.8 % (41.7-73.7); Nucleated Red Blood Cells % 0.1 % (0-0); Platelets 412 thou/uL (152-406); Red Cell Distribution Width 13.9 % (12.1-15.2)
[2024-07-14 06:07] LABS: Anion Gap 5.4 mEq/L (5.0-15.0); Potassium 4.4 mEq/L (3.5-5.1)
--- NOTE | 2024-07-14 15:24 | P.PN ---
Subjective Date of Service: 07/14/24 Chief Complaint: Acute cystitis Patient denies any complaint today. No reported diarrhea today No recorded fever. She denies any abdominal pain. Physical Examination - Vital Signs Temperature: 98.1 F Blood Pressure: 99/59 Pulse: 59 Respirations: 16 Pulse Ox (%): 98 Assessment And Plan - Plan Physical examination General: Alert and oriented x3, NAD, Heart: Heart sounds 1 and 2 normal, regular rhythm, normal rate, no pedal edema Lungs: Clear to auscultation bilaterally, adequate breath sounds bilaterally, no rhonchi or crackles. Abdomen: Soft, nondistended, nontender, normal bowel sounds. Skin: Normal skin turgor, no rash. Neuro: No focal motor deficit. Normal speech. Psychiatry: Normal mood, no agitation. Diagnosis Left pyelonephritis ESBL E. coli bacteremia Alcohol use Hepatic steatosis Coronary artery disease Pulmonary nodule Plan: Left pyelonephritis ESBL bacteremia Continue IV meropenem Infectious disease is following. Patient slated for 14 days of IV meropenem. PICC line placed for IV antibiotic. Awaiting home IV meropenem arrangement for discharge. Urology follow-up as outpatient recommended for recurrent UTI. Alcohol use Hepatic steatosis Nicotine patch stable splenic lesion on CT scan will need follow-up with PCP 3. CAD Degenerative disc disease Stable Pulmonary nodule Ovarian cyst Splenic lesion CT chest results reviewed and 2 nodules noted. Features suggest bronchogenic carcinoma versus metastasis. Primary bronchogenic carcinoma is likely as patient is a smoker. Previous endoscopy August 2020 showed Right colon polyp-- Hyperplastic polyp, Sigmoid colon polyp- Polypoid colonic mucosa, tubular adenoma, no adenomatous changes or evidence of malignancy CT abdomen pelvis done 07/07/24 showed irrregular thickening at the sigmoid colon which is overall improved from prior, and right adnexal cyst. Prior CT scans have also reported the adnexal cyst. The adnexal cyst reported to be unchanged from prior studies. Patient is aware of these findings. Patient findings discussed with her PCP Dr. Kaufman and Dr. Lu. Patient informed to follow-up with Dr. Kaufman and Dr. Lu for further malignancy evaluation. Patient may benefit from CT-guided biopsy of the pulmonary nodules. Patient voiced understanding. DVT prophylaxis: Lovenox Advanced directive: Full code
--- NOTE | 2024-07-14 21:59 | P.PN ---
Date of Service: 07/14/24 Subjective: The patient is lying in bed. No new acute event. Able to tolerate antibiotic without any problems. No fever, nausea, vomiting, rashes. pt report want to go home Objective: Temp Pulse Resp BP Pulse Ox 97.7 F 54 18 132/60 94 07/14/24 20:00 07/14/24 20:00 07/14/24 20:00 07/14/24 20:00 07/14/24 20:00 neuro: aox3 Lungs: Basal crackles. Heart: S1, S2. Regular. Abdomen: Soft, nontender. Bowel sounds present. Extremities: No edema. Laboratory Data: WBC 7.7, hemoglobin 13.1, platelets are 412. BUN 18, creatinine 0.51 blood culture 07/09 no growth in 5 days urine culture 07/08 no growth blood culture 07/07/24 no growth 07/07/24 blood culture e coli ESBL Assessment And Plan: 1. ESBL E coli bacteremia and pyelonephritis. The patient is currently on meropenem continue antibiotic for a total of 14 days. tentative stop date july 22. Pending home health to complete her antibiotics. Need CBC and BMP while the patient is on antibiotic, Sunday and . Monitor signs of infection with WBC and fever trends. 2. Chronic obstructive pulmonary disease. 3. Heavy tobacco user. Consider cutting back on tobacco use while on antibiotic. case round and in agreement with Dr aranda
--- NOTE | 2024-07-15 12:03 | P.DS ---
Admission Date: 07/07/24 Discharge Date: 07/15/24 Disposition: DC HOME/HOME HEALTH CARE Discharge Condition: GOOD Reason for Admission: Acute cystitis Consultations: ID - Dr. Shukla Pulmonology - Dr. Coelho Brief History of Present Illness: 63yo F, PMH: COPD, tobacco use, Patient presents to the emergency room with suprapubic abdominal pain. See reports headache, chills, nausea vomiting suprapubic abdominal pain she reports symptoms last or so the last 2 days. She reports recurrent UTIs. Was recently treated for UTI. She denies Tremors, alcohol withdrawals, chest pain, shortness of breath, edema, nausea vomiting diarrhea. She reports history of 2 pack-a-day smoking, 2-3 beers daily of alcohol use. Abdominal CT Left ureteral enhancement could be from infection or inflammation from ascending urinary tract infection, correlate with urinalysis. Plan to admit for pyelonephritis, suprapubic abdominal pain Hospital Course: Diagnosis Left pyelonephritis ESBL E. coli bacteremia Alcohol use Hepatic steatosis Coronary artery disease Pulmonary nodule Ovarian cyst Splenic lesion Physician discharge instructions: Patient presented with abdominal pain associated with nausea/vomiting/chills secondary to acute left-sided pyelonephritis complicated by E.coli ESBL bacteremia. CT abdomen on admission consistent with acute pyelonephritis. Patient was initially treated with IV rocephin. Antibiotics were switched to IV merrem following culture results. Patient was evaluated by ID who recommended patient complete 2 weeks of IV antibiotics. PICC line was placed 07/11 for outpatient IV antibiotics. Patient was feeling better, abdominal pain improved, afebrile without leukocytosis, and was deemed stable for discharge. Recommending following up with urology in the near future for further work up given recurrent UTIs. Patient is to complete ~6 more days of IV invanz on discharge. (end date: 07/21) CT chest done on presentation showed 2 pulmonary nodules nodules, features suggesting bronchogenic carcinoma versus metastasis. Primary bronchogenic carcinoma is likely as patient is a smoker. Patient has previous endoscopy August 2020 showed Right colon polyp-- Hyperplastic polyp, Sigmoid colon polyp- Polypoid colonic mucosa, tubular adenoma, no adenomatous changes or evidence of malignancy. CT abdomen pelvis done on 07/07/24 showed irrregular thickening at the sigmoid colon which is overall improved from prior, and right adnexal cyst. Prior CT scans have also reported the adnexal cyst. The adnexal cyst reported to be unchanged from prior studies. Patient findings discussed with her PCP Dr. Kaufman and Dr. Lu. Patient informed to follow-up with Dr. Kaufman and Dr. Lu for further m alignancy evaluation. Patient voiced understanding. Medications: IV Invanz 1 gram via PICC line daily (end date: 07/21) Follow up: PCP 3-5 days Urology in near future Dr. Kaufman in near future as discussed. Dr. Lu, GI in near future as discussed. Physical Exam: GEN: Alert, oriented, NAD CV: Regular rate and rhythm, no edema Pulm: Nonlabored respirations on room air, clear bilaterally ABD: soft, nontender, nondistended Neuro: Normal speech, normal affect Vital Signs/Physical Exam: Temp Pulse Resp BP Pulse Ox 98.4 F 57 14 118/63 95 07/15/24 08:00 07/15/24 08:00 07/15/24 08:00 07/15/24 08:00 07/15/24 08:00 Laboratory Data at Discharge: WBC 7.70 thou/uL (4.3-10.9) 07/14/24 05:40 Hgb 13.1 g/dL (12.0-15.0) 07/14/24 05:40 Hct 38.2 % (36.0-45.0) 07/14/24 05:40 Plt Count 412 thou/uL (152-406) H 07/14/24 05:40 PT 11.8 SECONDS (10-13.0) 07/07/24 17:17 INR 1.04 07/07/24 17:17 APTT 27.8 SECONDS (27.2-37.4) 07/07/24 17:17 Sodium 136 mEq/L (136-145) 07/14/24 05:40 Potassium 4.4 mEq/L (3.5-5.1) 07/14/24 05:40 BUN 18 mg/dL (7-18) 07/14/24 05:40 Creatinine 0.51 mg/dL (0.55-1.02) L 07/14/24 05:40 Glucose 99 mg/dL (74-106) 07/14/24 05:40 Magnesium 2.0 mg/dL (1.6-2.4) 07/10/24 05:34 Total Bilirubin 0.7 mg/dL (0.2-1.0) 07/07/24 12:52 AST 13 U/L (15-37) L 07/07/24 12:52 ALT 15 U/L (13-56) 07/07/24 12:52 Alkaline Phosphatase 88 U/L (45-117) 07/07/24 12:52 Lipase 15 U/L (13-75) 07/07/24 12:52 Home Medications: Pantoprazole [Protonix Tab*] 40 mg PO DAILY 08/13/23 Pregabalin [Lyrica*] 50 mg PO BID PRN 08/13/23 Trazodone HCl 200 mg PO BEDTIME 08/13/23 Albuterol Inhaler [Ventolin Inhaler*] 2 puff IH Q6H PRN 09/12/23 Fluticasone Propion/Salmeterol [[place] 500-50 Inhub] 1 each IH DAILY PRN 09/12/23 Montelukast [Singulair*] 10 mg PO DAILY 09/12/23 Vit/Fe Fumarate/FA [ 1 Plus 1 Tablet] 1 tab PO DAILY 09/12/23 Hydrocodone 5/APAP 325 [[place] 5/325] 1 tab PO Q6H PRN #15 tab 07/15/24 New Medications: Hydrocodone 5/APAP 325 [[place] 5/325] 1 tab PO Q6H PRN #15 tab PRN Reason: Pain Physician Discharge Instructions: Physician discharge instructions: Patient presented with abdominal pain associated with nausea/vomiting/chills secondary to acute left-sided pyelonephritis complicated by E.coli ESBL bacteremia. CT abdomen on admission consistent with acute pyelonephritis. Patient was initially treated with IV rocephin. Antibiotics were switched to IV merrem following culture results. Patient was evaluated by ID who recommended patient complete 2 weeks of IV antibiotics. PICC line was placed 07/11 for outpatient IV antibiotics. Patient was feeling better, abdominal pain improved, afebrile without leukocytosis, and was deemed stable for discharge. Recommending following up with urology in the near future for further work up given recurrent UTIs. Patient is to complete ~6 more days of IV invanz on discharge. (end date: 07/21) CT chest done on presentation showed 2 pulmonary nodules nodules, features suggesting bronchogenic carcinoma versus metastasis. Primary bronchogenic carcinoma is likely as patient is a smoker. Patient has previous endoscopy August 2020 showed Right colon polyp-- Hyperplastic polyp, Sigmoid colon polyp- Polypoid colonic mucosa, tubular adenoma, no adenomatous changes or evidence of malignancy. CT abdomen pelvis done on 07/07/24 showed irrregular thickening at the sigmoid colon which is overall improved from prior, and right adnexal cyst. Prior CT scans have also reported the adnexal cyst. The adnexal cyst reported to be unchanged from prior studies. Patient findings discussed with her PCP Dr. Kaufman and Dr. Lu. Patient informed to follow-up with Dr. Kaufman and Dr. Lu for further malignancy evaluation. Patient voiced understanding. Medications: IV Invanz 1 gram via PICC line daily (end date: 07/21) Follow up: PCP 3-5 days Urology in near future Dr. Kaufman in near future as discussed. Dr. Lu, GI in near future as discussed. Followup: Johnathan Kaufman DO, DO [Primary Care Provider] - 1-2 Weeks John Lu MD [ACTIVE - CAN ADMIT] - 1-2 Weeks Time spent managing pt's care (in minutes): 45
[2024-07-15 12:32] VITALS: BP 117/55; TEMP 97.6
--- NOTE | 2024-07-15 12:45 | P.CNS ---
Date of Consult: 07/15/24 Reason for Consult: Lung mass Chief Complaint: Lung mass history of COPD History of Present Illness: Patient is 63 years of age with a history of COPD active smoker admitted with ESBL urosepsis she is doing better was found to have lung masses 1 on the right and 1 in the lower lobe on the left side Allergies morphine Adverse Reaction (Mild, Verified 09/14/23 08:53) Hives Home Medications: Pantoprazole [Protonix Tab*] 40 mg PO DAILY 08/13/23 Pregabalin [Lyrica*] 50 mg PO BID PRN 08/13/23 Trazodone HCl 200 mg PO BEDTIME 08/13/23 Albuterol Inhaler [Ventolin Inhaler] 2 puff IH Q6H PRN 09/12/23 Fluticasone Propion/Salmeterol [[place] 500-50 Inhub] 1 each IH DAILY PRN 09/12/23 Montelukast [Singulair] 10 mg PO DAILY 09/12/23 Vit/Fe Fumarate/FA [ 1 Plus 1 Tablet] 1 tab PO DAILY 09/12/23 - Past Medical/Surgical History Diabetic: No -: left ear problems -: Cigarette abuse -: COPD -: arthritis -: L KNEE REPLACEMENT -: R WRIST SX -: -: BL EYES SX -: L EAR SX Psychosocial/ Personal History: Pt lives alone, . Her of colon cancer - Family History Mother History Unknown: Yes Medical History: Lung disease Notes: copd - Social History Smoking Status: Current every day smoker Alcohol use: Yes CD- Drugs: No Caffeine use: Yes Place of Residence: Home Review of Systems 10-point ROS is otherwise unremarkable Physical Examination Temp Pulse Resp BP Pulse Ox 97.6 F 52 16 117/55 L 93 07/15/24 12:00 07/15/24 12:00 07/15/24 12:00 07/15/24 12:00 07/15/24 12:00 General: Alert HEENT: Atraumatic Neck: Supple Respiratory: Clear to auscultation bilaterally Cardiovascular: No edema Gastrointestinal: Normal bowel sounds, Soft and benign - Problems (1) Lung nodule Current Visit: Yes Status: Acute Plan: Patient is 63 years of age with a history of COPD heavy active smoker admitted with 2 lung masses 1 in the right upper lobe is very suspicious for lung cancer and there is one in the left lower lobe near the diaphragm could be another tumor patient is currently doing better denies any pulmonary complaints the chest x-ray is negative plan to do an outpatient workup patient will need a PET scan pulmonary function testing including a biopsy most likely of the right upper lobe otherwise last chemistries reviewed the mass is not very apparent on the x-ray scheduled to have IV antibiotics for ESBL infection
--- NOTE | 2024-07-15 22:43 | PN ---
Subjective: The patient is lying in bed, being discharged today. No other problems. Objective: Vital Signs: Reviewed. Lungs: Basal crackles. Heart: S1, S2. Regular. Abdomen: Soft, nontender. Bowel sounds present. Extremities: Trace edema. Laboratory Data: Reviewed. Assessment And Plan: 1. Bacteremia secondary to Escherichia coli, extended-spectrum beta-lactamase, currently on meropenem , to be continued total of 2 weeks. 2. Probiotic to prevent possible C diff as the patient is having loose motion. 3. Chronic obstructive pulmonary disease. 4. The patient is improving clinically. We will follow the patient as needed. NF/MODL Voice ID: [id number] Report ID: [id number]
--- NOTE | 2024-07-16 13:18 | EKG ---
Test Date: 2024-07-07 Test Time: 13:02:06 [facility]: [facility] MEASUREMENT RESULTS: Intervals: Rate: 83 NH: 146 QRSD: 90 QT: 376 QTc: 441 [place]: P: 70 NH: 146 QRS: -78 T: 68 INTERPRETIVE STATEMENTS: Normal sinus rhythm Left anterior fascicular block Cannot rule out Inferior infarct (masked by fascicular block?), age undetermined Anteroseptal infarct, age undetermined Abnormal ECG Compared to ECG 08/13/2023 10:45:41 No significant changes Electronically Signed On 07-16-24 12:53:26 CDT by Ranjan Upton
== END 2024-07-15 14:41 | disposition home health service (06) | DRG 690 ==
LOC: ER 11:55 → ERHOLD 17:14 → 2ND 17:49
PROVIDERS: ADMIT Hospitalist; ATTEND Hospitalist
PROC: 02HV33Z Insertion of Infusion Device into Superior Vena Cava, Percutaneous Approach (ICD-10-PCS; principal; 2024-07-11)
DX: N10 Acute pyelonephritis (principal); Z16.12 Extended spectrum beta lactamase (ESBL) resistance; R78.81 Bacteremia; J38.7 Other diseases of larynx; N28.1 Cyst of kidney, acquired; D73.89 Other diseases of spleen; E27.8 Other specified disorders of adrenal gland; K76.0 Fatty (change of) liver, not elsewhere classified; N83.209 Unspecified ovarian cyst, unspecified side; J44.9 Chronic obstructive pulmonary disease, unspecified; I25.10 Atherosclerotic heart disease of native coronary artery without angina pectoris; F17.210 Nicotine dependence, cigarettes, uncomplicated; B96.20 Unspecified Escherichia coli [E. coli] as the cause of diseases classified elsewhere; Z88.5 Allergy status to narcotic agent; Z60.2 Problems related to living alone; Z96.652 Presence of left artificial knee joint
CPT/HCPCS: 36415; 71045; 71260; 74177; 80048; 80053; 81001; 83605; 83690; 83735; 84484; 85025; 85610; 85730; 87040; 87077; 87086; 87088; 87186; 87205; 93005; 96365; 96375; 97116; 97161; 97165; 99285; J0360; J0696; J1171; J1650; J2185; J2405; J2997; J3010; J3535; J7030; J7613; J7644; J8597; Q9967

== ENCOUNTER 2024-07-24 07:36 | Emergency (ER) | payer OTHER ==
[2024-07-24] MEDS ORDERED: HYDROMORPHONE HCL 1 MG/ML INJ ONE ×2 (07:46→09:23)
[2024-07-24] MEDS ORDERED: ONDANSETRON 4 MG/2 ML VIAL ONE (07:46)
[2024-07-24 08:07] LABS: Absolute Basophils 0.1 K/uL (0-0.5); Absolute Lymphocytes (CBC) 0.7 K/uL (0.7-4.9); Absolute Monocytes 0.3 K/uL (0.1-1.3); Absolute Neutrophil 9.1 K/uL (1.8-8.0); Basophils % 0.6 % (0-1.3); Hematocrit 38.1 % (36.0-45.0); Hemoglobin 13.1 g/dL (12.0-15.0); Lymphocytes % 6.4 % (15.3-44.8); MCH 31.2 pg (27.0-35.0); MCHC 34.3 g/dL (32.0-36.0); MPV 6.8 fL (7.6-11.3); Monocytes % 3.2 % (3.3-12.3); Neutrophils % 89.8 % (41.7-73.7); Nucleated Red Blood Cells % 0.1 % (0-0); Platelets 517 thou/uL (152-406); RBC Red Blood Cell Count 4.18 M/uL (3.86-4.86); Red Cell Distribution Width 13.7 % (12.1-15.2)
[2024-07-24 08:38] LABS: Albumin 2.5 g/dL (3.4-5.0); Albumin/Globulin Ratio 0.6 (1.1-1.8); Alkaline Phosphatase 111 U/L (45-117); Anion Gap 8.4 mEq/L (5.0-15.0); BUN Blood Urea Nitrogen 13 mg/dL (7-18); Bicarbonate 28 mEq/L (21-32); Bilirubin Total 0.6 mg/dL (0.2-1.0); Globulin 4.3 g/dL (2.3-3.5); Glomerular Filtration Rate 108 ml/min (=/>90); Glucose Level 130 mg/dL (74-106); Lipase 10 U/L (13-75); Potassium 3.4 mEq/L (3.5-5.1); Protein, Total 6.8 g/dL (6.4-8.2); Sodium Level 138 mEq/L (136-145)
--- NOTE | 2024-07-24 08:58 | RAD REPORT ---
EXAM: Chest Abdomen Pelvis W Cont CLINICAL INDICATION: Chest and abdominal pain TECHNIQUE: CT chest, abdomen and pelvis was performed, with 100 cc Isovue-300 IV contrast, as per de partment protocol. Axial, sagittal and coronal reconstructions were obtained. One or more of the following dose reduction techniques were used: Automated exposure control, adjustment of the mA and/o r kV according to the patient size, and/or iterative reconstruction. Unless otherwise specified, incidental findings do not require dedicated imaging follow-up. [id number]. Oral contrast not given. This limits evaluation of the bowel. COMPARISON: July [address] FINDINGS: 2 cm right upper lobe nodule. 1.3 cm left lower lobe nodules. No mediastinal or hilar lymphadenopathy. No pleural effusion. No pericardial effusion. No pleural effusion.. No pericardial effusion 2.5 cm low to intermediate density splenic mass unchanged. Liver, pancreas, adrenals kidneys unremarkable Soft tissue prominence within the mid sigmoid colon. Mild stranding within the adjacent fat. Moderate amount of stool within colon. 2.3 cm cystic mass right adnexa probably benign. It is unchanged. Trace amount of free fluid. IMPRESSION: 2 cm right upper lobe and 1.3 cm left lower lobe nodules. One could represent bronchogenic carcinoma and liver metastasis or they both may represent metastases. Soft tissue mid sigmoid colon may represent a mass and direct visualization is recommended. Mild suzi cent inflammatory changes are present 2.5 cm splenic mass could be benign or represent a metastasis.
[2024-07-24 09:01] LABS: ALT/SGPT < 14 U/L (13-56); AST/SGOT < 10 U/L (15-37)
[2024-07-24] MEDS ORDERED: NA CHLORIDE 0.9% 1,000 ML ONE (10:09)
--- NOTE | 2024-07-24 10:36 | EDPHYS ---
Physician Documentation [facility] Name: Yumi Kumar Age: 64 yrs Sex: Female : 1960 Arrival Date: 07/24/2024 Time: 07:36 Bed 20 Private MD: ED Physician Jose Rafael San HPI: 07/24 08:39 This 64 yrs old Female presents to ER via EMS with complaints of Abdominal Pain. rn 08:39 The patient presents with abdominal pain in the upper abdomen, in the lower abdomen. rn Onset: The symptoms/episode began/occurred at an unknown time. Modifying factors: The symptoms are alleviated by nothing, the symptoms are aggravated by movement, touching the area. Severity of pain: At its worst the pain was moderate in the emergency department the pain is unchanged. The patient has experienced similar episodes in the past, chronically. Patient reports chronic abdominal pain, has been having this abdominal pain for a year and a half. Has had imaging before but no clear etiology. Patient reports recently seen and diagnosed with urinary tract infection/pyelonephritis. No fever or chills. No vomiting. No diarrhea.. Historical: - Allergies: 07:41 Morphine; db - PMHx: 07:41 COPD; db - PSHx: 07:41 knee; wrist; db - Immunization history:: Adult Immunizations unknown. - Infectious Disease History:: Denies. - Social history:: Smoking status: Patient reports the use of cigarette tobacco products, smokes one-half pack cigarettes per day. - Family history:: not pertinent. - Hospitalizations: : No recent hospitalization is reported. ROS: 08:39 Constitutional: Negative for fever, chills, and weight loss, Cardiovascular: Negative rn for chest pain, palpitations, and edema, Respiratory: Negative for shortness of breath, cough, wheezing, and pleuritic chest pain, Abdomen/GI: Positive for abdominal pain Back: Negative for injury and pain, MS/Extremity: Negative for injury and deformity, Skin: Negative for injury, rash, and discoloration, Neuro: Negative for headache, weakness, numbness, tingling, and seizure, Exam: 08:39 Constitutional: This is a well developed, well nourished patient who is awake, alert, rn appears in pain Cardiovascular: Regular rate and rhythm. No pulse deficits. Respiratory: Mild tachypnea Abdomen/GI: Soft, tender right lower quadrant/left lower quadrant/left upper quadrant, no distention or peritoneal signs MS/ Extremity: Pulses equal, no cyanosis. Neurovascular intact. Full, normal range of motion. Equal circumference. Neuro: Awake and alert, GCS 15 Vital Signs: 07:28 BP 143 / 71; Pulse 98; Resp 18; Temp 98.4; Pulse Ox 89% on R/A; Weight 61.69 kg; Height db 5 ft. 2 in. ; Pain 10/10; 08:00 BP 123 / 64; Pulse 105; Resp 18; Pulse Ox 90% ; db 09:00 BP 137 / 75; Pulse 93; Resp 18; Pulse Ox 94% ; db 09:15 Pain 10/10; db 11:00 BP 100 / 46; Pulse 102; Resp 18; Pulse Ox 93% ; db 07:28 Body Mass Index 24.87 (61.69 kg, 157.48 cm) db 07:28 Pain Scale: Adult db 09:15 Pain Scale: Adult db 07:28 PT PLACED ON NC 2L db [place] Coma Score: 09:15 Eye Response: spontaneous(4). Motor Response: obeys commands(6). Verbal Response: db oriented(5). Total: 15. MDM: 07:37 Medical Screening Exam initiated rn 10:32 Differential diagnosis: bowel obstruction, diverticulitis, pancreatitis, Peptic Ulcer rn Disease, Perf. Duodenal Ulcer, Perf. Gastric Ulcer, Malignancy. Data reviewed: vital signs, nurses notes, lab test result(s), radiologic studies, CT scan, and as a result, I will discharge patient. Counseling: I had a detailed discussion with the patient and/or guardian regarding the historical points, exam findings, and any diagnostic results supporting the discharge/admit diagnosis, lab results, radiology results, the need for outpatient follow up, to return to the emergency department if symptoms worsen or persist or if there are any questions or concerns that arise at home. Response to treatment: the patient's symptoms have markedly improved after treatment, and as a result, I will discharge patient. Special discussion: Based on the patient's Hx, exam, and Dx evaluation, there is no indication for emergent surgery or inpatient Tx. It is understood by the patient/guardian that if the Sx's persist or worsen they need to return immediately for re-evaluation. I discussed with the patient/guardian in detail that at this point there is no indication for admission to the hospital. It is understood, however, that if the symptoms persist or worsen the patient needs to return immediately for re-evaluation. Based on the history and exam findings, there is no indication for further emergent testing or inpatient evaluation. I discussed with the patient/guardian the need to see the inspector material disposition/oncologist for further evaluation of the symptoms. I discussed with the patient/guardian the need to see the primary care provider for further evaluation of the symptoms. ED course: No acute findings on imaging. CT imaging shows possible sigmoid colon mass as well as possible metastases to the spleen/liver as well as concerns of malignancy in the lungs. I reviewed previous CT images and previous images have shown sigmoid mass and patient has had recurrent diverticulitis in the past. Patient states followed up with GI and had scopes and they have mentioned possible cancer to her but never got it completely evaluated. Pain is controlled, had normalization of vital signs were improvement of vital signs, will discharge with pain control and needs to follow-up with PCP and oncology for further diagnosis and workup.. 11:10 ED course: No indication for emergent admission or procedure at this time. Patient has rn known about colon mass for some time. Patient has COPD and no acute lung or chest complaints.. 07/24 07:38 Order name: CBC with Diff; Complete Time: 08:27 rn 07/24 07:38 Order name: CMP; Complete Time: 09:18 rn 07/24 07:38 Order name: Lipase; Complete Time: 09:18 rn 07/24 07:38 Order name: CT Chest, Abdomen, Pelvis - W/Contrast; Complete Time: 08:58 rn 07/24 07:38 Order name: IV Saline Lock; Complete Time: 07:58 rn 07/24 07:38 Order name: Labs collected and sent; Complete Time: 07:58 rn 07/24 09:42 Order name: PO challenge; Complete Time: 10:11 rn Administered Medications: 07:54 Drug: HYDROmorphone IVP 1 mg IVP once Route: IVP; Site: left antecubital; db 07:54 Drug: Ondansetron IVP 4 mg IVP once; over 2 minutes Route: IVP; Site: left upper arm; db 09:22 Drug: HYDROmorphone IVP 1 mg IVP once Route: IVP; Site: left upper arm; db 10:00 Drug: NS 0.9% IV 1000 ml IV at 1000 ml once; to be given as a bolus over 60 minutes db Route: IV; Rate: 1000 ml; Site: left upper arm; 10:48 Drug: [place] PO 10 mg-325 mg 1 tabs PO once Route: PO; db Disposition Summary: 07/24/24 10:35 Discharge Ordered Notes: Location: Home rn Problem: chronic rn Symptoms: have improved rn Condition: Stable rn Diagnosis - Abdominal pain, unspecified rn - Mass of sigmoid colon rn - Pulmonary nodules rn - Suspicion of malignancy rn Followup: rn - With: Private Physician - When: 5 - 6 days - Reason: Recheck today's complaints, Re-evaluation by your physician Discharge Instructions: - Discharge Summary Sheet rn - Abdominal Pain, Adult rn - Colon Mass, Adult rn - Lung Mass rn Forms: - Medication Reconciliation Form rn - Antibiotic mergers and acquisitions attorney - Prescription Opioid Use rn - Patient Portal Instructions rn - Leadership Thank You Letter rn Prescriptions: - Tylenol-Codeine #3 300mg-30mg Oral tablet - take 1 tablet ORAL route every 6 hours As needed; 14 tablet; Refills: 0, rn Product Selection Permitted Signatures: Dispatcher [employer] EDMS Jose Rafael San MD MD rn Joanna Coello RN RN db Corrections: (The following items were deleted from the chart) 07:38 07:38 CBC+H.LAB.BRZ ordered. EDMS EDMS 07:38 07:38 COMPREHENSIVE METABOLIC PANEL+C.LAB.BRZ ordered. EDMS EDMS 07:38 07:38 LIPASE+C.LAB.BRZ ordered. EDMS EDMS 07:38 07:38 Urinalysis+U.LAB.BRZ ordered. EDMS EDMS 07:38 07:38 Chest Abdomen Pelvis W Con+CT.RAD.BRZ ordered. EDMS EDMS
--- NOTE | 2024-07-24 10:36 | ER ---
Nurse's Notes [facility] Name: Yumi Kumar Age: 64 yrs Sex: Female : 1960 Arrival Date: 07/24/2024 Time: 07:36 Bed 20 Private MD: Diagnosis: Abdominal pain, unspecified;Mass of sigmoid colon;Pulmonary nodules;Suspicion of malignancy Presentation: 07/24 07:28 Chief complaint: EMS states: COMPLAINS OF LLQ PAIN THAT SHOOTS UP INTO CHEST. RECENTLY db IN HOSPITAL FOR UTI. TAKING IV ABX. PICC LINE TO LEFT UPPER ARM. Coronavirus screen: Client denies travel out of the [place] in the last 14 days. At this time, the client does not indicate any symptoms associated with coronavirus-19. Ebola Screen: Patient negative for fever greater than or equal to 101.5 degrees Fahrenheit, and additional compatible Ebola Virus Disease symptoms Patient denies exposure to infectious person. Patient denies travel to an Ebola-affected area in the 21 days before illness onset. No symptoms or risks identified at this time. Initial Sepsis Screen: Does the patient meet any 2 criteria? No. Patient's initial sepsis screen is negative. Does the patient have a suspected source of infection? No. Patient's initial sepsis screen is negative. Risk Assessment: Do you want to hurt yourself or someone else? Patient reports no desire to harm self or others. Onset of symptoms was July 24, 2024. 07:28 Method Of Arrival: EMS: [facility] db 07:28 Acuity: JUANITA 3 db Triage Assessment: 07:41 General: Appears in no apparent distress. comfortable, Behavior is calm, cooperative. db Pain: Complains of pain in left lower quadrant. Neuro: Level of Consciousness is awake, alert, obeys commands, Oriented to person, place, time, situation. Respiratory: Airway is patent Respiratory effort is even, unlabored, Respiratory pattern is regular, symmetrical. GI: Abdomen is non-distended, Reports lower abdominal pain. Historical: - Allergies: 07:41 Morphine; db - PMHx: 07:41 COPD; db - PSHx: 07:41 knee; wrist; db - Immunization history:: Adult Immunizations unknown. - Infectious Disease History:: Denies. - Social history:: Smoking status: Patient reports the use of cigarette tobacco products, smokes one-half pack cigarettes per day. - Family history:: not pertinent. - Hospitalizations: : No recent hospitalization is reported. Screenin:00 [facility] ED Fall Risk Assessment (Adult) History of falling in the last 3 months, db including since admission No falls in past 3 months (0 pts) Confusion or Disorientation No (0 pts) Intoxicated or Sedated No (0 pts) Impaired Gait No (0 pts) Mobility Assist Device Used No (0 pt) Altered Elimination No (0 pt) Score/Fall Risk Level 0 - 2 = Low Risk Oriented to surroundings, Maintained a safe environment. Abuse screen: Denies threats or abuse. Denies injuries from another. Nutritional screening: No deficits noted. Tuberculosis screening: No symptoms or risk factors identified. Assessment: 07:43 Reassessment: Patient appears in no apparent distress at this time. Patient and/or db family updated on plan of care and expected duration. Pain level reassessed. Patient is alert, oriented x 3, equal unlabored respirations, skin warm/dry/pink. SEE TRIAGE FOR INITIAL ASSESSMENT. General: Appears in no apparent distress. comfortable, Behavior is calm, cooperative. 09:15 Reassessment: Patient appears in no apparent distress at this time. No changes from db previously documented assessment. Patient and/or family updated on plan of care and expected duration. Pain level reassessed. Patient is alert, oriented x 3, equal unlabored respirations, skin warm/dry/pink. Pain: Complains of pain in pelvis and abdomen. Neuro: Level of Consciousness is awake, alert, obeys commands, Oriented to person, place, time, situation. 10:00 Reassessment: Patient appears in no apparent distress at this time. Patient and/or db family updated on plan of care and expected duration. Pain level reassessed. Patient is alert, oriented x 3, equal unlabored respirations, skin warm/dry/pink. 11:22 Reassessment: Patient appears in no apparent distress at this time. Patient and/or db family updated on plan of care and expected duration. Pain level reassessed. Patient is alert, oriented x 3, equal unlabored respirations, skin warm/dry/pink. Patient states feeling better. Patient states symptoms have improved. Vital Signs: 07:28 BP 143 / 71; Pulse 98; Resp 18; Temp 98.4; Pulse Ox 89% on R/A; Weight 61.69 kg; Height db 5 ft. 2 in. ; Pain 10/10; 08:00 BP 123 / 64; Pulse 105; Resp 18; Pulse Ox 90% ; db 09:00 BP 137 / 75; Pulse 93; Resp 18; Pulse Ox 94% ; db 09:15 Pain 10/10; db 11:00 BP 100 / 46; Pulse 102; Resp 18; Pulse Ox 93% ; db 07:28 Body Mass Index 24.87 (61.69 kg, 157.48 cm) db 07:28 Pain Scale: Adult db 09:15 Pain Scale: Adult db 07:28 PT PLACED ON NC 2L db [place] Coma Score: 09:15 Eye Response: spontaneous(4). Motor Response: obeys commands(6). Verbal Response: db oriented(5). Total: 15. ED Course: 07:36 Patient arrived in ED. db 07:37 Jose Rafael San MD is Attending Physician. rn 07:41 Triage completed. db 07:41 Arm band placed on Patient placed in an exam room. db 07:42 Accessed PICC line. Flushes easily. db 07:44 Joanna Coello, ROSEMARIE is Primary Nurse. db 08:[address] via stretcher. db 08:41 CT Chest, Abdomen, Pelvis - W/Contrast In Process Unspecified. EDMS 11:21 No provider procedures requiring assistance completed. PICC line flushed. Remains in ss place. 11:22 Patient has correct armband on for positive identification. Side rails up X 1. Provided db Education on: DISCHARGE AND FOLLOWUP. Pulse ox on. NIBP on. Warm blanket given. Pillow given. Administered Medications: 07:54 Drug: HYDROmorphone IVP 1 mg IVP once Route: IVP; Site: left antecubital; db 07:54 Drug: Ondansetron IVP 4 mg IVP once; over 2 minutes Route: IVP; Site: left upper arm; db 09:22 Drug: HYDROmorphone IVP 1 mg IVP once Route: IVP; Site: left upper arm; db 10:00 Drug: NS 0.9% IV 1000 ml IV at 1000 ml once; to be given as a bolus over 60 minutes db Route: IV; Rate: 1000 ml; Site: left upper arm; 10:48 Drug: [place] PO 10 mg-325 mg 1 tabs PO once Route: PO; db Medication: 11:22 VIS not applicable for this client. db Outcome: 10:35 Discharge ordered by . rn 11:21 Discharged to home via wheelchair, ss 11: Condition: good 11:21 Discharge instructions given to patient, Instructed on discharge instructions, follow up and referral plans. medication usage, Demonstrated understanding of instructions, follow-up care, medications, Prescriptions given X 1, 11: Patient left the ED. ss 11: Discharged to home via wheelchair, db 11:22 Condition: stable Signatures: Dispatcher [employer] EDMS Jose Rafael San MD MD rn Blanchard, Shelby, RN RN Joanna Zarate RN RN db
[2024-07-24] MEDS ORDERED: HYDROCODONE/APAP 10/325 TAB ONE (10:42)
[2024-07-24 11:31] VITALS: BP 100/46; O2SAT 93
== END 2024-07-24 11:22 | disposition home or self-care (01) ==
LOC: ER 07:36
DX: K63.89 Other specified diseases of intestine (principal); R91.8 Other nonspecific abnormal finding of lung field; F17.210 Nicotine dependence, cigarettes, uncomplicated
CPT/HCPCS: 85025; 36415; 83690; 80053; 71260; 74177; 99285; Q9967; J1171 ×2; J2405; J7030